=== PATIENT | male | born 1935 | race Caucasian/White ===

== ENCOUNTER 2020-03-30 13:57 | Outpatient (RCR) | payer MEDICARE, OTHER, SELFPAY ==
--- NOTE | 2020-04-05 13:21 | XR_ITS ---
EXAMINATION: XR CALCANEUS, RIGHT CLINICAL INFORMATION: Nonhealing ulcer. Evaluate for osteomyelitis. COMPARISON: Bone scan January 2020 TECHNIQUE: Lateral and axial views of the right calcaneus were obtained. FINDINGS: There is bone loss and periosteal reaction of the posterior inferior calcaneus suggestive of osteomyelitis. There is an ulcer of the overlying soft tissues. There are degenerative changes of the hindfoot. There is soft tissue arterial calcification. IMPRESSION: Osteomyelitis of the calcaneus.
== END 2020-06-07 13:31 | disposition home or self-care (01) ==
LOC: HO.WCC 13:57
PROVIDERS: PCP Internal Medicine; Visit Provider Surgery
DX: L89.614 Pressure ulcer of right heel, stage 4 (principal); L08.9 Local infection of the skin and subcutaneous tissue, unspecified; I73.9 Peripheral vascular disease, unspecified; M86.9 Osteomyelitis, unspecified; I10 Essential (primary) hypertension; G62.9 Polyneuropathy, unspecified; Z89.512 Acquired absence of left leg below knee; Z87.891 Personal history of nicotine dependence; Z86.718 Personal history of other venous thrombosis and embolism; Z79.01 Long term (current) use of anticoagulants
CPT/HCPCS: 11042; 11043; 11045; 73650; 97602; 99212; 99213; 99214

== ENCOUNTER 2020-04-10 22:55 | Emergency (ER) | payer MEDICARE, OTHER, SELFPAY ==
[2020-04-10 23:11] VITALS: BP 111/53; BP 111/67; PULSE 69; PULSE 70; RESP 16; TEMP 36.8; O2SAT 95; O2SAT 98; BMI 27.3
--- NOTE | 2020-04-10 23:13 | US_ITS ---
EXAMINATION: US VENOUS ULTRASOUND WITH DOPPLER LOWER EXTREMITY, RIGHT CLINICAL INFORMATION: Right leg pain, swelling COMPARISON: 10/01/2016 TECHNIQUE: Ultrasound of the deep veins is performed from the hip to the calf with compression sonography and color and pulse Doppler assessment. Spectral analysis with color-flow imaging is performed. FINDINGS: There is normal venous compression and respiratory variation and augmented flow. The visualized common femoral vein, superficial femoral vein, profunda femoral vein, popliteal vein, and the trifurcation region shows no evidence of deep venous thrombosis. There is no significant popliteal fossa cyst. If the patient's symptoms persist, followup ultrasound in 5 days 7 days might be of value to exclude proximal propagation from a non-visualized calf vein. IMPRESSION: No DVT demonstrated in the right lower extremity.
--- NOTE | 2020-04-10 23:13 | XR_ITS ---
EXAMINATION: XR HIP, RIGHT CLINICAL INFORMATION: Pain in right hip COMPARISON: X-ray of the right hip July 2016 TECHNIQUE: Two views of the right hip. FINDINGS: A right total hip arthroplasty is noted with the components in usual position and unchanged compared to prior. There is no periprosthetic fracture or suspicious area of lucency. Arterial calcification is present. Prominent spondylosis of the partially visualized lumbar sacral spine IMPRESSION: Bilateral hip arthroplasties. No acute abnormality
--- NOTE | 2020-04-10 23:16 | ED_ITS ---
HPI - General Adult General Chief complaint: Extremity Injury, Lower Stated complaint: RIGHT LEG PAIN Time Seen by Provider: 04/10/20 23:04 Source: patient Mode of arrival: EMS Limitations: no limitations History of Present Illness HPI narrative: patient comes to emergency room complaining of right lower extremity pain. Patient states he has pain in his hip joint, the back of his knee, back of the thigh. patient states he has an ulcer in heel on the right side, which is been taking care of by the wound clinic. Patient has no current complaints about the ulcer. Related Data Previous Rx's Medication Instructions Recorded tramadol 50 mg PO TID PRN #10 tab 04/11/20 Allergies Allergy/AdvReac Type Severity Reaction Status Date / Time No Known Allergies Allergy Verified 04/10/20 23:17 [No Known Allergies*] Review of Systems Review of Systems: Constitutional : No Weight loss, No Fever, No Chills, No Night Sweats, No Fatigue, No Malaise ENT/Mouth : No Hearing loss, No Ear Pain, No Nasal Congestion, No Sinus Pain, No Hoarseness, No sore throat, No Rhinorrhea, No Swallowing Difficulty Eyes: No Eye Pain, No Swelling, No Redness, No Foreign Body, No Discharge, No Vision Changes Cardiovascular : No Chest Pain, No SOB, No Dyspnea on Exertion, No Orthopnea, No Edema, No Palpitations Respiratory : No Cough, No Sputum, No Wheezing, No Smoke Exposure, No Dyspnea Gastrointestinal : No Nausea, No Vomiting, No Diarrhea, No Constipation, No abdominal Pain, No Hematochezia, No Melena Genitourinary : no irregular bleeding, No Dysuria, No Urinary Frequency, No Hematuria, No Urinary Incontinence, No Urgency, No Flank Pain, No Urinary Flow Changes, No Hesitancy Musculoskeletal : Complaining right lower extremity pain at the hip, back of the thigh, back of the knee Skin : No Skin Lesions, No rash Neuro : No Weakness, No Numbness, No Paresthesias, No Loss of Consciousness, No Dizziness, No Headache Psych : No Anxiety/Panic, No Depression, No SI/HI/AH/VH, No Social Issues, Heme/Lymph: No Bruising, No Bleeding,No Lymphadenopathy Endocrine : No Polyuria, No Polydipsia, No Temperature Intolerance PMFSH Past Medical History Medical History Hypertension Social History Social History Advance Directives: No Advance Directives Information Provided: No Physical Exam Vital Signs: Vital Signs: Vital Signs Temp Pulse Resp BP Pulse Ox 04/11/20 01:05 98.2 F 75 15 105/63 97 04/10/20 23:11 98.3 F 69 16 111/53 L 95 Body Mass Index 27.3 Appearance: Alert. Oriented X3. No acute distress. Eyes: Pupils equal, round and reactive to light. ENT: Pharynx normal. Neck: Normal inspection. Neck supple. No lymph nodes noted. No crepitus CVS: Normal heart rate and rhythm. Pulses normal. Normal S1 and S2 Respiratory: No respiratory distress. Breath sounds normal. No Wheezing. No r ales Abdomen: Soft and nontender. No rigidity. No distention. good BS x4 Skin: see below Extremities: right foot edema, stage II ulcer in the right heel, pain to palpation in the calf, behind the knee, posterior right thigh, mild pain to the right hip with flexion and extension. 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 No motor deficit. No sensory deficit. Moving all extermities. No slurred speech. Medical Decision Making MDM Narrative Medical decision making narrative: I discussed the labs and imaging with the patient. I discussed with the patient that he will likely benefit from physical therapy, which may help him with pain, mobility, and to prevent Muscular contractures Lab Data Result diagrams: 04/11/20 00:05 04/11/20 00:05 Labs: Lab Results 04/11/20 04/11/20 Range/Units 00:05 00:05 WBC 8.3 (4.8-10.8) X10*3/uL RBC 3.06 L (4.60-5.80) X10*6/uL Hgb 8.4 L (14.0-18.0) g/dl Hct 26.7 L (42-52) % MCV 87.3 (80-98) fL MCH 27.5 (27.0-33.0) pg MCHC 31.5 (31.0-36.0) g/dl RDW 14.1 (11.0-16.0) % Plt Count 294 (160-400) X10*3/uL MPV 9.9 (9.4-12.4) fL Immature Gran % (Auto) 0.2 (0.0-0.4) % Neut % (Auto) 63.6 (45-73) % Lymph % (Auto) 22.9 (20-40) % [place] % (Auto) 6.0 (2-11) % Eos % (Auto) 6.8 H (0-4) % Baso % (Auto) 0.5 (0-2) % Lymph # (Auto) 1.9 (1.2-4.9) X10*3/uL [place] # (Auto) 0.5 (0.1-1.2) X10*3/uL Eos # (Auto) 0.6 H (0.0-0.4) X10*3/uL Baso # (Auto) 0.0 (0.0-0.2) X10*3/uL Abs Immat Gran (auto) 0.02 (0.00-0.03) X10*3/uL Absolute Neuts (auto) 5.3 (2.0-8.3) X10*3/uL Absolute Nucleated RBC 0.000 (0.0-0.012) X10*3/uL Nucleated RBC % (auto) 0.0 (0.0-0.2) /100WBC Sodium 141 (135-145) mmol/L Potassium 4.4 (3.3-5.1) mmol/l Chloride 110 H (96-108) mmol/L Carbon Dioxide 25 (22-29) mmol/L Anion Gap 10 L (12-20) BUN 22 H (9-16) mg/dL Creatinine 1.34 (0.5-1.4) mg/dL Estim Creat Clear Calc 37.9 Estimated GFR 51 Random Glucose 95 (60-115) mg/dL Calcium 8.7 (8.4-10.2) mg/dL Magnesium 1.8 (1.6-2.6) mg/dL Imaging Data duplex ultrasound: Radiologist's impression: no DVT demonstrated in the right lower e xtremity hip x-ray: Bilateral hip arthroplasties, no acute abnormality Discharge Plan Discharge Clinical Impression: Leg pain, right Patient Disposition: Home, Self-Care Instructions: Leg Pain (ED) Additional Instructions: please follow-up with your primary care physician, who will likely benefit from physical therapy for your right leg. Please follow-up with your primary care physician tomorrow. If you have any worsening or new symptoms, please return to the emergency room or call 911 Prescriptions: New tramadol 50 mg tablet 50 mg PO TID PRN (Reason: pain) Qty: 10 RF: 0
[2020-04-11 00:15] LABS: MANUAL DIFF FLAG NO
[2020-04-11 00:23] LABS: Basophils Percent Auto 0.5 % (0-2); Eosinophils Absolute Auto 0.6 X10*3/uL (0.0-0.4); Eosinophils Percent Auto 6.8 % (0-4); Hematocrit 26.7 % (42-52); Hemoglobin 8.4 g/dl (14.0-18.0); Imm Gran Abs Auto 0.02 X10*3/uL (0.00-0.03); Imm Gran Pct Auto 0.2 % (0.0-0.4); Lymphocytes Absolute Auto 1.9 X10*3/uL (1.2-4.9); Lymphocytes Percent Auto 22.9 % (20-40); Mean Corpuscular HGB Conc 31.5 g/dl (31.0-36.0); Mean Corpuscular Hemoglobin 27.5 pg (27.0-33.0); Mean Corpuscular Volume 87.3 fL (80-98); Mean Platelet Volume 9.9 fL (9.4-12.4); Monocytes Absolute Auto 0.5 X10*3/uL (0.1-1.2); Neutrophils Absolute Auto 5.3 X10*3/uL (2.0-8.3); Neutrophils Percent Auto 63.6 % (45-73); Platelet Count 294 X10*3/uL (160-400); Red Blood Count 3.06 X10*6/uL (4.60-5.80); Red Cell Distribution Width 14.1 % (11.0-16.0); White Blood Count 8.3 X10*3/uL (4.8-10.8)
[2020-04-11 00:43] LABS: Anion Gap 10 (12-20); Blood Urea Nitrogen 22 mg/dL (9-16); Calcium 8.7 mg/dL (8.4-10.2); Carbon Dioxide 25 mmol/L (22-29); Chloride 110 mmol/L (96-108); Creatinine Clr Calc Pharmacy 37.9; Estimated Glomerular Filt Rate 51; Glucose Random 95 mg/dL (60-115); Magnesium 1.8 mg/dL (1.6-2.6); Potassium 4.4 mmol/l (3.3-5.1); Sodium 141 mmol/L (135-145)
[2020-04-11 01:05] VITALS: BP 105/63; PULSE 75; RESP 15; TEMP 36.8; O2SAT 97
[2020-04-11] MEDS: Acetaminophen 325 MG TABLET 650 MG PO (01:54)
== END 2020-04-11 03:46 | disposition home or self-care (01) ==
PROVIDERS: Emergency Provider Emergency Medicine
DX: M79.661 Pain in right lower leg (principal); M25.551 Pain in right hip; M54.5 Low back pain; Z79.899 Other long term (current) drug therapy
CPT/HCPCS: 36415; 73502; 80048; 83735; 85025; 93971; 99284

== ENCOUNTER → 2020-04-18 15:17 | Outpatient (BNVA) | payer MEDICARE, OTHER, SELFPAY | PROVIDERS: PCP Internal Medicine; Referring Provider Internal Medicine; Visit Provider Surgery | DX: L97.419 Non-pressure chronic ulcer of right heel and midfoot with unspecified severity (principal); I73.9 Peripheral vascular disease, unspecified | CPT/HCPCS: 99212 ==

== ENCOUNTER 2020-04-24 08:07 | Day surgery (SDC) | payer MEDICARE, OTHER, SELFPAY ==
--- NOTE | 2020-04-21 11:01 | HO.ANESPROP2 ---
Documented by User: Valarie Forte 04/21/20 11:08 HPI - Anesthesia Eval Consult details Narrative: 84yo M for Debridement of right fool/heel ulcer PMFSH Past Medical History Medical History (Updated 04/21/20 @ 11:08 by Valarie Forte) Chronic kidney disease GERD (gastroesophageal reflux disease) Hypertension Peripheral vascular disease Polyneuropathy Surgical History Surgical History History of amputation below knee History of appendectomy History of tonsillectomy Hx of bilateral hip replacements Social History Social History Are you a primary women's health care nurse practitioner to a significant other at home: No Do you presently have visiting nurse or other home services: Yes Alcohol intake: never Smoking Status: Never smoker Smoked in Last 30 Days: No Use of substances other than those prescribed or required for medical reasons: No Advance Directives: No Advance Directives Information Provided: No (unknown) Meds Allergies Allergy/AdvReac Type Severity Reaction Status Date / Time No Known Allergies Allergy Verified 04/10/20 23:17 [No Known Allergies*] Home Medications Medication Instructions Recorded Confirmed Type carvedilol 6.25 mg tablet 6.25 mg PO BID 04/18/20 04/18/20 History clopidogrel 75 mg tablet 75 mg PO DAILY 04/18/20 04/18/20 History latanoprost 0.005 % eye drops drp OPHTHALMIC (EYE) DAILY PRN ml 04/18/20 04/18/20 History omeprazole 20 mg capsule,delayed 20 mg PO DAILY 04/18/20 04/18/20 History release potassium chloride 10 mEq 10 meq PO DAILY 04/18/20 04/18/20 History tablet,extended release sulfamethoxazole 800 1 tab PO BID 04/18/20 04/18/20 History mg-trimethoprim 160 mg tablet vitamin B complex 1 tab PO DAILY 04/18/20 04/18/20 History Exam Exam Date and Time: April 21, 2020 1101 Pertinent Lab Results Pertinent Lab Results: Laboratory Tests 04/11/20 04/11/20 00:05 00:05 WBC 8.3 Hgb 8.4 L Hct 26.7 L Plt Count 294 Sodium 141 Potassium 4.4 Chloride 110 H BUN 22 H Creatinine 1.34 Assessment and Plan Assessment Anesthesia Assessment: Chart Reviewed Documented by User: Alistair Mcdaniel 04/24/20 10:53 PMF Past Medical History Medical History (Updated 04/21/20 @ 11:08 by Valarie Forte) Chronic kidney disease GERD (gastroesophageal reflux disease) Hypertension Peripheral vascular disease Polyneuropathy Surgical History Surgical History History of amputation below knee History of appendectomy History of tonsillectomy Hx of bilateral hip replacements Social History Social History Are you a primary women's health care nurse practitioner to a significant other at home: No Do you presently have visiting nurse or other home services: Yes Alcohol intake: never Smoking Status: Never smoker Smoked in Last 30 Days: No Use of substances other than those prescribed or required for medical reasons: No Advance Directives: No Advance Directives Information Provided: No (unknown) Meds Allergies Allergy/AdvReac Type Severity Reaction Status Date / Time No Known Allergies Allergy Verified 04/10/20 23:17 [No Known Allergies*] Home Medications Medication Instructions Recorded Confirmed Type carvedilol 6.25 mg tablet 6.25 mg PO BID 04/18/20 04/18/20 History clopidogrel 75 mg tablet 75 mg PO DAILY 04/18/20 04/18/20 History latanoprost 0.005 % eye drops drp OPHTHALMIC (EYE) DAILY PRN ml 04/18/20 04/18/20 History omeprazole 20 mg capsule,delayed 20 mg PO DAILY 04/18/20 04/18/20 History release potassium chloride 10 mEq 10 meq PO DAILY 04/18/20 04/18/20 History tablet,extended release sulfamethoxazole 800 1 tab PO BID 04/18/20 04/18/20 History mg-trimethoprim 160 mg tablet vitamin B complex 1 tab PO DAILY 04/18/20 04/18/20 History Exam Airway Mallampati Class: III TM Dist: >3cm Neck ROM: Limited Heart: RRR Assessment and Plan Assessment Anesthesia Assessment: Anesthesia Plan Discussed Final Anesthetic Review NPO: Yes (Except meds) ASA Class: III Final Preanesthetic Review: Consent Obtained/Reviewed Anesthetic Plan Anesthetic Plan: MAC:
[2020-04-24] VITALS (7 sets, daily range): BP systolic 99–113; BP diastolic 52–62; PULSE 62–74; RESP 16–18; TEMP 36.6–36.9; O2SAT 98–99; BMI 27.5
--- NOTE | 2020-04-24 09:17 | MHC.SHP ---
Pre-Procedural Eval Section A The patient is an INPATIENT: No Changes since office visit: Yes Patient answered all questions; No Cold of Flu in the past 2 weeks, No New Medical Problems and No Changes in Medication The History & Physical has been completed within 30 days and I have reviewed it.: Yes Section B Chief Complaint: Ulcer of Right Heel Allergies: Allergies Allergy/AdvReac Type Severity Reaction Status Date / Time No Known Allergies Allergy Verified 04/10/20 23:17 [No Known Allergies*] Plan Diagnosis/Plan: Unchanged Patient has been examined and remains a candidate for the planned procedure
[2020-04-24 09:20] LABS: Glucose, Whole Blood 89 mg/dL (60-115)
[2020-04-24] MEDS: ceFAZolin Sodium/Dextrose,Iso 2 GM/50 ML PIGGYBACK IV (09:41)
[2020-04-24] MEDS: Lactated Ringers 1,000 ML 100 ML IVCONT (09:43)
--- NOTE | 2020-04-24 10:49 | PM.OP ---
Brief Operative Note Date of procedure: 04/24/20 Pre-op diagnosis: Right foot ulcer, heal Post-op diagnosis: same Procedure: Debridement of skin, subcutaneous tissue and bone, right foot Implants: none Surgeon: Kevin Alcaraz MD Anesthesia: MAC Estimated blood loss (mL): 10 Pathology: other (right foot ulcer) Condition: stable Disposition: PACU
--- NOTE | 2020-04-24 11:33 | W.PM.OPN ---
Operative Note Operative Note Narrative: Date of procedure: 04/24/20 Pre-op diagnosis: Right foot ulcer, heal Post-op diagnosis: same Procedure: Debridement of skin, subcutaneous tissue and bone, right foot Indications for procedure: Patient is an 84-year-old male presenting with the nonhealing ulcer of the right heel [facility] He presents today for debridement of this heel ulcer which has areas necrotic skin and bone. Operative findings: Patient was found to have an area of necrotic skin and subcutaneous tissue involving approximately 2 x 2 cm. In addition have segment of bone from the right heel was excised. Exposed bone at the base of the wound was debrided using a curette down to healthy viable tissue. Procedure details: Patient was brought to the OR placed in a supine position. After administering light sedation the patient was placed in a partial lateral position with the right heel elevated. The skin was prepped with Betadine and draped in a sterile fashion. A surgical time-out was called and the consent confirmed. Patient received preoperative antibiotics. Local anesthesia consisting a combination of 1% lidocaine with 0.75 % Sensorcaine with epinephrine was infiltrated around the ulcer. Scalp was then used to debride the nonviable tissue including approximately 2 x 2 cm segment of skin at the inferior portion of the wound. Viable bleeding tissue was identified at the margins. A segment of tendon with fractured bone measuring approximately 1 x 1 cm was excised as well and sent as a specimen as well. Hemostasis was assured using electrocautery. The wounds were irrigated thoroughly with saline solution. Wound was then dressed with Surgicel to maintain hemostasis followed by a non adherent dressing, fluffed gauze, and Kerlix. The patient tolerated the procedure well. Sponge, instrument, and needle counts reported as correct. The patient was transferred to PACU in stable condition. Implants: none Surgeon: Kevin Alcaraz MD Anesthesia: MAC Estimated blood loss (mL): 10 Pathology: other (right foot ulcer) Condition: stable Disposition: PACU
[2020-04-24] MEDS: oxyCODONE HCl Immed Release 5 MG TABLET PO (12:14)
[2020-04-24] MEDS: Acetaminophen 325 MG TABLET 650 MG PO (12:14)
--- NOTE | 2020-04-24 14:00 | HO.POSTANES ---
Post Anesthesia Evaluation Post Anesthesia Evaluation Vital Signs: Vital Signs Temp Pulse Resp BP Pulse Ox 04/24/20 12:48 97.9 F 65 16 100/61 98 04/24/20 12:33 65 16 112/62 98 04/24/20 12:18 62 18 112/52 L 98 04/24/20 12:03 66 18 113/55 L 98 04/24/20 11:48 74 16 109/59 L 99 04/24/20 11:33 97.9 F 70 18 99/55 L 99 04/24/20 09:00 98.5 F 66 98 Anesthesia: Monitored Mental Status: Awake Pain Control: Satisfactory Nausea/Vomiting: None Hydration: Adequate Anesthesia-Related Issues: No Anes. Related Issues
== END 2020-04-24 23:59 | disposition home or self-care (01) ==
PROVIDERS: PCP Internal Medicine; Visit Provider Surgery
PROC: (CPT 11044; principal; 2020-04-24 10:00)
DX: I96 Gangrene, not elsewhere classified (principal); L97.414 Non-pressure chronic ulcer of right heel and midfoot with necrosis of bone; I12.9 Hypertensive chronic kidney disease with stage 1 through stage 4 chronic kidney disease, or unspecified chronic kidney disease; N18.9 Chronic kidney disease, unspecified; G62.9 Polyneuropathy, unspecified; I49.9 Cardiac arrhythmia, unspecified; K21.9 Gastro-esophageal reflux disease without esophagitis; Z89.519 Acquired absence of unspecified leg below knee; Z96.643 Presence of artificial hip joint, bilateral; Z79.899 Other long term (current) drug therapy; Z87.891 Personal history of nicotine dependence
CPT/HCPCS: 11044; 82947; 88304; 88305; J0690; J2250; J3010

== ENCOUNTER → 2020-05-02 10:23 | Outpatient (BNVA) | payer MEDICARE, OTHER, SELFPAY | PROVIDERS: PCP Internal Medicine; Referring Provider Internal Medicine; Visit Provider Surgery | DX: L97.419 Non-pressure chronic ulcer of right heel and midfoot with unspecified severity (principal) | CPT/HCPCS: 99212 ==

== ENCOUNTER → 2020-05-16 15:00 | Outpatient (BNVA) | payer MEDICARE, OTHER, SELFPAY | PROVIDERS: PCP Internal Medicine; Visit Provider Surgery Vascular Surgery | DX: L97.419 Non-pressure chronic ulcer of right heel and midfoot with unspecified severity (principal); Z89.512 Acquired absence of left leg below knee | CPT/HCPCS: 99212 ==

== ENCOUNTER 2020-07-06 12:39 | Outpatient (REF) | payer MEDICARE, OTHER, SELFPAY ==
--- NOTE | 2020-07-06 15:00 | MHC.AU.P13 ---
Adult Audiological Evaluation Date of Visit: 07/06/20 Reason for Appointment: Audiological evaluation to monitor the status of Mr. Boogie's hearing loss. He has a long-standing history of bilateral sensorineural hearing loss and hearing aid use. He notes that his hearing seems to be gradually worsening. Previous Hearing Test Results: [facility] [place], 06/11/2019- Normal hearing 250-500 Hz, sloping to a mild to severe sensorineural hearing loss bilaterally. 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 He reports that he injured his legs in a fall, and the left leg was amputated in December 2019, and the right leg was amputated in late January/early February 2020. He notes he is being fit with a prosthesis for the left leg soon. Hearing Instrument History- Right Ear: Forensic Toxicologist: [employer] Model: [employer] Q70-M13 Serial Number: [id number] Battery Size: 13 Warranty: Dispensed By: [facility] Date of Fittin Hearing Instrument History- Left Ear: Forensic Toxicologist: [employer] Model: [employer] Q70-M13 Serial Number: [id number] Battery Size: 13 Warranty: Dispensed By: [facility] Date of Fittin Otoscopy: Right Ear: Completely occluded w/ cerumen. Unable to remove, patient on blood thinners Left Ear: Completely occluded w/ cerumen. Unable to remove, patient on blood thinners Tympanometry: Right Ear: Normal Middle Ear System (Type A) Left Ear: Normal Middle Ear System (Type A) Hearing Evaluation: Transducer(s) Used: Circumaural Headphones, Bone Conduction Method: Conventional Audiometry Stimuli Used: Pure Tones Right Ear: Description of Hearing: Normal hearing from 250-500 Hz, sloping to a mild to profound sensorineural hearing loss from 750-8000 Hz. Left Ear: Description of Hearing: Normal hearing from 250-500 Hz, sloping to a mild to profound sensorineural hearing loss from 750-8000 Hz. Speech Recognition Threshold (SRT): Method Used: Monitored Live Voice Stimuli Used: Spondee Words Right Ear: 30 dBHL Left Ear: 30 dBHL Word Discrimination: Method: Monitored Live Voice Word Lists Used: NU-6 Right Ear: 84% at 75 dBHL Left Ear: 96% at 75 dBHL Comparison: Compared to most recent evaluation: Decrease in high-frequency thresholds, which may be related to the use of supra-aural headphones (due to cerumen build-up) vs insert headphones used at last visit. All other thresholds are stable. Recommendations: Recommendations: Audiological re-evaluation in one year.Follow-up with physician for cerumen removal. Recommendations (Other): Highly recommend that Mr. Boogie follow-up with either his PCP or ENT for removal of cerumen. The amount of cerumen currently in his ears is likely to block hearing aids and decrease his hearing. Diagnosis: Primary Diagnosis: H90.3 Bilateral Sensorineural Hearing Loss Secondary Diagnosis: H61.23 Impacted Cerumen, Bilateral Services Performed: Services Performed: Comprehensive Audiological Evaluation (CPT 23621) Tympanometry (CPT 08923) Signature: Provider: George Cui, CCC-A
--- NOTE | 2020-07-07 09:46 | MHC.AU.P13 ---
Addendum entered and electronically signed by George Macdonald, CCC-A 07/07/20 09:49: Incorrect date entered in error. Rewrote with correct date Original Note: Adult Audiological Evaluation Date of Visit: 07/06/20 Reason for Appointment: Audiological evaluation to monitor the status of Mr. Boogie's hearing loss. He has a long-standing history of bilateral sensorineural hearing loss and hearing aid use. He notes that his hearing seems to be gradually worsening. Previous Hearing Test Results: [facility] [place], 06/11/2019- Normal hearing 250-500 Hz, sloping to a mild to severe sensorineural hearing loss bilaterally. 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 He reports that he injured his legs in a fall, and the left leg was amputated in December 2019, and the right leg was amputated in late January/early February 2020. He notes he is being fit with a prosthesis for the left leg soon. Hearing Instrument History- Right Ear: Casino Cage Manager: [employer] Model: [employer] Q70-M13 Serial Number: [id number] Battery Size: 13 Warranty: Dispensed By: [facility] Date of Fittin Hearing Instrument History- Left Ear: Casino Cage Manager: [employer] Model: [employer] Q70-M13 Serial Number: [id number] Battery Size: 13 Warranty: Dispensed By: [facility] Date of Fittin Otoscopy: Right Ear: Completely occluded w/ cerumen. Unable to remove, patient on blood thinners Left Ear: Completely occluded w/ cerumen. Unable to remove, patient on blood thinners Tympanometry: Right Ear: Normal Middle Ear System (Type A) Left Ear: Normal Middle Ear System (Type A) Hearing Evaluation: Transducer(s) Used: Circumaural Headphones, Bone Conduction Method: Conventional Audiometry Stimuli Used: Pure Tones Right Ear: Description of Hearing: Normal hearing from 250-500 Hz, sloping to a mild to profound sensorineural hearing loss from 750-8000 Hz. Left Ear: Description of Hearing: Normal hearing from 250-500 Hz, sloping to a mild to profound sensorineural hearing loss from 750-8000 Hz. Speech Recognition Threshold (SRT): Method Used: Monitored Live Voice Stimuli Used: Spondee Words Right Ear: 30 dBHL Left Ear: 30 dBHL Word Discrimination: Method: Monitored Live Voice Word Lists Used: NU-6 Right Ear: 84% at 75 dBHL Left Ear: 96% at 75 dBHL Comparison: Compared to most recent evaluation: Decrease in high-frequency thresholds, which may be related to the use of supra-aural headphones (due to cerumen build-up) vs insert headphones used at last visit. All other thresholds are stable. Recommendations: Recommendations: Audiological re-evaluation in one year.Follow-up with physician for cerumen removal. Recommendations (Other): Highly recommend that Mr. Boogie follow-up with either his PCP or ENT for removal of cerumen. The amount of cerumen currently in his ears is likely to block hearing aids and decrease his hearing. Diagnosis: Primary Diagnosis: H90.3 Bilateral Sensorineural Hearing Loss Secondary Diagnosis: H61.23 Impacted Cerumen, Bilateral Services Performed: Services Performed: Comprehensive Audiological Evaluation (CPT 49199) Tympanometry (CPT 67949) Signature: Provider: George Cui, CCC-A
== END 2020-07-06 12:40 | disposition home or self-care (01) ==
LOC: HO.SH 12:39
PROVIDERS: Visit Provider Nurse Practitioner
DX: H90.3 Sensorineural hearing loss, bilateral (principal); H61.23 Impacted cerumen, bilateral
CPT/HCPCS: 92557; 92567

== ENCOUNTER 2020-12-08 11:32 | Outpatient (RCR) | payer MEDICARE, OTHER, SELFPAY | END 2021-01-03 12:58 | disposition home or self-care (01) | LOC: HO.WCC 11:32 | PROVIDERS: Visit Provider Physician Assistant | DX: L97.812 Non-pressure chronic ulcer of other part of right lower leg with fat layer exposed (principal); Z89.512 Acquired absence of left leg below knee; Z89.511 Acquired absence of right leg below knee; Z87.891 Personal history of nicotine dependence | CPT/HCPCS: 99212 ==

== ENCOUNTER 2021-08-06 13:27 | Outpatient (REF) | payer MEDICARE, OTHER, SELFPAY ==
--- NOTE | 2021-08-24 09:54 | MHC.AU.AHA ---
Adult Audiological Evaluation Date of Visit: 08/10/21 Reason for Appointment: Long-standing history of hearing loss. Patient arrives today to determine if there has been a change in hearing. Previous Hearing Test Results: At this clinic on 07/06/2020- Normal sloping to profound sensorineural hearing loss bilaterally Ear History: Recent Ear Drainage: None Reported Recent Ear Pain: None Reported Recent Ear Infections: None Reported History of Ear Wax Buildup: Both Ears Medical History: Medical History: High Blood Pressure Medical History: Amputation of left leg in December 2019, Amputation of right leg in late January/early February 2020. He has been fit with prostheses and uses a wheelchair. Hearing Instrument History- Right Ear: Political Consultant: [employer] Model: Prim’Vision Q70-M13 Serial Number: [id number] Battery Size: 13 Dispensed By: [facility] Date of Fittin Hearing Instrument History- Left Ear: Political Consultant: Phonak Model: Prim’Vision Q70-M13 Serial Number: [id number] Battery Size: 13 Dispensed By: [facility] Date of Fittin Otoscopy: Right Ear: Partially occluded w/cerumen- cerumen removal performed before testing Left Ear: Partially occluded w/cerumen- cerumen removal performed before testing Tympanometry: Tympanometry performed due to: Right Ear: Normal Middle Ear System (Type A) Left Ear: Normal Middle Ear System (Type A) Hearing Evaluation: Transducer(s) Used: Insert Earphones Method: Conventional Audiometry Stimuli Used: Pure Tones Right Ear: Description of Hearing: Normal sloping to profound sensorineural hearing loss Left Ear: Description of Hearing: Normal sloping to profound sensorineural hearing loss Speech Recognition Threshold (SRT): Method Used: Recorded Lists Stimuli Used: Spondee Words Right Ear: 45 dBHL Left Ear: 45 dBHL Word Discrimination: Method: Recorded Lists Word Lists Used: W-22 Right Ear: 80% at 80 dBHL Left Ear: 84% at 80 dBHL Most Comfortable Level (MCL): Right Ear: 80 dBHL Left Ear: 80 dBHL Comparison: Compared to the most recent evaluation: Thresholds have decreased bilaterally. Recommendations: Audiological re-evaluation in one year. Hearing aid maintenance performed today. Hearing aid(s) reprogrammed with updated test results. Diagnosis: Primary Diagnosis: H90.3 Bilateral Sensorineural Hearing Loss Signature: Provider: George Jackson, CCC-A
== END 2021-08-06 13:28 | disposition home or self-care (01) ==
LOC: HO.SH 13:27
PROVIDERS: Visit Provider Internal Medicine
DX: Z01.118 Encounter for examination of ears and hearing with other abnormal findings (principal); H90.3 Sensorineural hearing loss, bilateral
CPT/HCPCS: 92557; 92567

== ENCOUNTER 2021-10-31 18:11 | Inpatient (IN) | payer MEDICARE, OTHER, SELFPAY ==
--- NOTE | ~2021-10-31 | XR_ITS ---
EXAMINATION: XR CHEST CLINICAL INFORMATION: Fever. COMPARISON: None TECHNIQUE: Frontal view of the chest was obtained. FINDINGS: Low lung volumes limit evaluation. There is mild elevation of the right hemidiaphragm. Mild bibasilar linear markings are seen. The upper lung beck are clear. An azygos fissure is noted. The heart and mediastinal structures are unremarkable. XR/XR chest 1V IMPRESSION: Mild bibasilar linear atelectasis versus scarring. No acute cardiopulmonary process.
--- NOTE | ~2021-10-31 | CT_ITS ---
EXAMINATION: CT ABDOMEN AND PELVIS WITHOUT CONTRAST CLINICAL INFORMATION: Left-sided pain and tenderness COMPARISON: None TECHNIQUE: Multidetector volumetric imaging was performed from the superior aspect of the liver through the pubic symphysis. Sagittal and coronal reformatted images were obtained on the technologist's workstation. This CT examination was performed using dose optimization techniques as appropriate, variously including the following: *Automated exposure control *Adjustment of mA and/or kV according to patient size (this includes techniques or standardized protocols for targeted exams where dose is matched to indication/reason for exam; i.e. extremities or head) *Use of iterative reconstruction technique DLP: 738 mGy-cm FINDINGS: LUNG BASES: Left basilar nodule. Measures 9 mm. Coronary calcifications are seen. LIVER, GALLBLADDER, AND BILIARY TREE: Some mild intrahepatic ductal dilatation. Common duct prominent at 1.2 cm.. The gallbladder is unremarkable with no evidence of radiopaque gallstones, gallbladder wall thickening, or obvious pericholecystic inflammatory changes. PANCREAS: Unremarkable. SPLEEN: Unremarkable. ADRENAL GLANDS: Unremarkable. KIDNEYS AND URETERS: The kidneys are mildly hydronephrotic bilaterally. Ureters are prominent into the bladder. No obvious stone. Evaluation of the pelvis is limited from the patient's hip artifact. BLADDER: Limited evaluation. Mildly thick-walled. GASTROINTESTINAL TRACT: The bowel pattern is felt to be nonobstructing. There is moderate stool rectosigmoid. ABDOMINAL WALL: No significant hernia is appreciated. LYMPH NODES: Normal. VASCULAR: Atherosclerotic change. No aneurysmal change PELVIC VISCERA: Unremarkable. OSSEOUS STRUCTURES: Degenerative changes. Some scattered areas of bony lucency may be degenerative in nature and represent Schmorl's nodes. CT/CT abdomen pelvis wo con IMPRESSION: There is bilateral hydronephrosis and the ureters are prominent to the level of the bladder insertion. No obvious stone is seen bilaterally. Bladder wall is thickened and this may be due to cystitis or hypertrophy. Moderate rectosigmoid stool. The bowel pattern is overall nonobstructing. Mild intrahepatic ductal dilatation and common ductal prominence through the pancreas. No obvious pancreatic lesion. Still lesion at the level the ampulla cannot be excluded. If further evaluation is warranted consider MR/MRCP. 9 mm left lower lobe nodule. Recommend full CT of the chest for full evaluation. This may be done on an outpatient basis. Fleischner guidelines were followed.
--- NOTE | ~2021-10-31 | MR_ITS ---
EXAMINATION: MR ABDOMEN WITHOUT CONTRAST CLINICAL INFORMATION: Abnormal CT of the bile ducts. Elevated liver function tests. COMPARISON: Previous CT of the abdomen and pelvis October 2021 TECHNIQUE: MR abdomen is performed without gadolinium contrast. MRCP sequences were performed. FINDINGS: LUNG BASES: There is a tiny right pleural effusion. The lung bases are otherwise unremarkable. LIVER, GALLBLADDER, AND BILIARY TREE: The liver is normal in size, smooth in contour, and normal in signal. The gallbladder is upper normal in size. No gallstones are seen. There is gallbladder wall thickening and edema and small amount of pericholecystic fluid. Appearance is concerning for cholecystitis. There is mild intra and extrahepatic biliary duct dilatation. The common bile duct measures 1 cm. No common bile duct stone is seen. PANCREAS: Unremarkable. SPLEEN: Unremarkable. ADRENAL GLANDS: Unremarkable. KIDNEYS AND URETERS: The kidneys are normal in size and shape. No hydronephrosis. No perinephric stranding. There is a Richter catheter in the bladder. Mild bilateral hydronephrosis and ureteral dilatation is improved from 10/31/2021 CT scan. GASTROINTESTINAL TRACT: There is diverticulosis of the colon. No bowel obstruction. No ascites or fluid collection. ABDOMINAL WALL: No significant hernia is appreciated. LYMPH NODES: No lymphadenopathy. VASCULAR: There is evidence of atherosclerotic disease. No aneurysm is seen. OSSEOUS STRUCTURES: There are degenerative changes of the spine. MR/MR MRCP IMPRESSION: Upper normal-size gallbladder. Gallbladder wall thickening, edema and small amount of pericholecystic fluid. Appearance is concerning for cholecystitis. No gallstones seen. Mild intrahepatic and extrahepatic biliary duct dilatation. The common bile duct measures 1 cm. No common bile duct stone seen. Trace right pleural effusion and small amount of ascites adjacent to the liver. Findings will be communicated by the [employer] work flow police matron.
[2021-10-31 18:23] VITALS: BP 136/63; BP 138/62; PULSE 53; PULSE 58; RESP 18; TEMP 36.7; O2SAT 99; BMI 28.1
--- NOTE | 2021-10-31 18:37 | ED.BACK ---
HPI - Back Pain/Injury General Chief Complaint: Back Pain/Injury Stated Complaint: back pain Time Seen by Provider: 10/31/21 18:37 Source: patient, EMS and old records reviewed Mode of arrival: EMS Limitations: no limitations History of Present Illness HPI Narrative: 85 y/o male with history of PVD, s/p bilateral BKA's, GERD, ?mild dementia (on aricept), who presents to the ER via EMS with complaints of nontraumatic left lower back pain that started yesterday. He reports the pain is in his middle to lower left side of his back, 8/10 and sharp in nature. It is worse with movement and palpation, it is constant and came on gradually. He denies any urinary symptoms, nausea, vomiting or fevers. He denies history of prior back pain. Denies history of kidney stone. He has not taken any medications for the pain. MD elicited complaint: back pain Onset (ago): day(s) (1) Timing: progressively worsening Severity: severe Pain scale (0-10): 8 Similar Symptoms Previously: No Quality: stabbing Location: left flank Radiation: none Exacerbating factors: movement Relieving factors: immobilization Context: unknown Associated symptoms: denies other symptoms Work related injury: No Related Data Home Medications Medication Instructions Recorded Confirmed carvedilol 6.25 mg tablet 6.25 mg PO BID 04/18/20 05/02/20 clopidogrel 75 mg tablet 75 mg PO DAILY 04/18/20 05/02/20 latanoprost 0.005 % eye drops drp OPHTHALMIC (EYE) DAILY PRN ml 04/18/20 05/02/20 omeprazole 20 mg capsule,delayed 20 mg PO DAILY 04/18/20 05/02/20 release potassium chloride 10 mEq 10 meq PO DAILY 04/18/20 05/02/20 tablet,extended release sulfamethoxazole 800 1 tab PO BID 04/18/20 05/02/20 mg-trimethoprim 160 mg tablet vitamin B complex (B 1 tab PO DAILY 04/18/20 05/02/20 Complex-Vitamin B12) Previous Rx's Medication Instructions Recorded tramadol 50 mg tablet 50 mg PO TID PRN #10 tab 04/11/20 oxycodone 5 mg tablet 5 mg PO Q6H PRN #10 tab 04/24/20 Allergies Allergy/AdvReac Type Severity Reaction Status Date / Time No Known Allergies Allergy Verified 10/31/21 18:28 [No Known Allergies*] Review of Systems Review of Systems: Constitutional: No Fever, No Chills ENT/Mouth: No sore throat, No Rhinorrhea, No Swallowing Difficulty Cardiovascular: No Chest Pain, No SOB Respiratory: No Cough, No Sputum Gastrointestinal: No Nausea, No Vomiting, No Diarrhea, No abdominal Pain, No Hematochezia, No Melena Genitourinary: No Dysuria, No Urinary Frequency, No Hematuria Musculoskeletal: No joint pain, + Myalgias, +Back pain Skin: No Skin Lesions, No rash Neuro: No Weakness, No Numbness, No Dizziness, No Headache Psych: No Anxiety/Panic, No Depression Heme/Lymph: No Bruising, No Lymphadenopathy Endocrine: No Polyuria, No Polydipsia PMFSH Past Medical History Medical History Chronic kidney disease GERD (gastroesophageal reflux disease) Hypertension Peripheral vascular disease Polyneuropathy Surgical History History of amputation below knee History of appendectomy History of tonsillectomy Hx of bilateral hip replacements Social History Social History Are you a primary child care attendant school to a significant other at home: No Do you presently have visiting nurse or other home services: Yes Alcohol intake: never Advance Directives: No Advance Directives Information Provided: No Physical Exam Vital Signs: Vital Signs: Last Vital Signs Temp 100.6 F H 10/31/21 23:02 Pulse 80 10/31/21 23:02 Resp 18 10/31/21 23:02 BP 101/42 L 10/31/21 23:02 Pulse Ox 94 10/31/21 23:35 BMI result Body Mass Index 28.1 Appearance: Alert. Oriented X3. No acute distress. Eyes: Pupils equal, round and reactive to light. ENT: Pharynx normal. Neck: Normal inspection. Neck supple. CVS: Normal heart rate and rhythm. Pulses normal. Respiratory: No respiratory distress. Breath sounds normal. Abdomen: Soft and nontender. +BS x4 Back: normal inspection, tenderness in the left flank and left upper lumbar area, no midline tenderness. +CVA tenderness on the left. Skin: Skin warm and dry. Normal skin color. Normal skin turgor. No rashes. Extremities: s/p bilateral BKA, no peripheral edema Neuro: Oriented X 3. No motor deficit. No sensory deficit. Nonfocal, answers questions appropriately. Course Course Course Narrative: 85-year-old male with history of peripheral vascular disease status post bilateral BKA, HTN who presents to the ER with left middle and lower back pain that started yesterday. Denies history of the same. Denies urinary symptoms. +CVA tenderness on the left. Reports pain is 10/10. Will check labs and CT scan given age and concern for possible renal etiology. Reevaluation(s) Reevaluation #1: 21:45 - No pain relief with oxycodone and lidoderm. Labs show no lekocytosis. Lactic acid 2.5. Mild UGO with SCr 1.84. Will gently hydrate and give low dose Fentanyl for ongoing pain. CT scan still pending. Patient noted to be shaking with rigors - temp is 102.8. Concern for infection - most likely urinary source given his left flank pain. Will check lactic, and panculture. Reevaluation #2: 22:00 - CT scan showing bilateral hydronephrosis, without visible stone. bladder wall inflammation. Richter placed with cloudy urine returned. Sent for analysis is and grossly positive. IV rocephin ordered. Patient confused now, trying to eat the oxygen saturation probe. Most likely due to infection. Will plan for admission. Dr. David TT for admit. MDM - Back Pain/Injury Lab Data Result diagrams: 10/31/21 19:01 10/31/21 19:02 Labs: Lab Results 10/31/21 10/31/21 10/31/21 Range/Units 19:01 19:02 21:59 WBC 7.3 (4.8-10.8) X10*3/uL RBC 3.69 L (4.60-5.80) X10*6/uL Hgb 10.6 L (14.0-18.0) g/dl Hct 33.0 L (42.0-52.0) % MCV 89.4 (80.0-98.0) fL MCH 28.7 (27.0-33.0) pg MCHC 32.1 (31.0-36.0) g/dl RDW 14.1 (11.0-16.0) % Plt Count 231 (160-400) X10*3/uL MPV 10.6 (9.4-12.4) fL Immature Gran % (Auto) 0.3 (0.0-0.4) % Neut % (Auto) 81.8 H (45-73) % Lymph % (Auto) 10.1 L (20-40) % Island % (Auto) 5.2 (2-11) % Eos % (Auto) 2.3 (0-4) % Baso % (Auto) 0.3 (0-2) % Lymph # (Auto) 0.7 L (1.2-4.9) X10*3/uL Island # (Auto) 0.4 (0.1-1.2) X10*3/uL Eos # (Auto) 0.2 (0.0-0.4) X10*3/uL Baso # (Auto) 0.0 (0.0-0.2) X10*3/uL Abs Immat Gran (auto) 0.02 (0.00-0.03) X10*3/uL Absolute Neuts (auto) 6.0 (2.0-8.3) x10*3/uL Absolute Nucleated RBC 0.000 (0.0-0.012) X10*3/uL Nucleated RBC % (auto) 0.0 (0.0-0.2) /100WBC Sodium 142 (135-145) mmol/L Potassium 4.5 (3.3-5.1) mmol/L Chloride 112 H (96-108) mmol/L Carbon Dioxide 23 (22-29) mmol/L Anion Gap 12 (12-20) BUN 27 H (9-16) mg/dL Creatinine 1.84 H (0.5-1.4) mg/dL Estim Creat Clear Calc 29.4 Estimated GFR 35 Random Glucose 201 H D (60-115) mg/dL Lactic Acid 2.5 H* (0.5-2.0) mmol/L Calcium 9.1 (8.4-10.2) mg/dL Urine Color Urine Appearance Urine pH (5.0-8.0) Ur Specific [place] (1.005-1.025) Urine Protein (NEG-TRACE) MG/DL Urine Glucose (UA) (NEG) MG/DL Urine Ketones (NEG) MG/DL Urine Blood (NEG) Urine Nitrite (NEG) Ur Leukocyte Esterase (NEG) Urine RBC (0) /HPF Urine WBC (0-4) /HPF Ur Squamous Epith Cells /LPF Ur Renal Epithelial Cell /LPF Urine Bacteria /LPF COVID-19 (RA) (Negative) COVID-19 Clin Com Influenza Type A (ROXIE) (Negative) Influenza Type B (ROXIE) (Negative) Influenza A & B Note 10/31/21 10/31/21 10/31/21 Range/Units 21:59 21:59 22:43 WBC (4.8-10.8) X10*3/uL RBC (4.60-5.80) X10*6/uL Hgb (14.0-18.0) g/dl Hct (42.0-52.0) % MCV (80.0-98.0) fL MCH (27.0-33.0) pg MCHC (31.0-36.0) g/dl RDW (11.0-16.0) % Plt Count (160-400) X10*3/uL MPV (9.4-12.4) fL Immature Gran % (Auto) (0.0-0.4) % Neut % (Auto) (45-73) % Lymph % (Auto) (20-40) % Island % (Auto) (2-11) % Eos % (Auto) (0-4) % Baso % (Auto) (0-2) % Lymph # (Auto) (1.2-4.9) X10*3/uL Island # (Auto) (0.1-1.2) X10*3/uL Eos # (Auto) (0.0-0.4) X10*3/uL Baso # (Auto) (0.0-0.2) X10*3/uL Abs Immat Gran (auto) (0.00-0.03) X10*3/uL Absolute Neuts (auto) (2.0-8.3) x10*3/uL Absolute Nucleated RBC (0.0-0.012) X10*3/uL Nucleated RBC % (auto) (0.0-0.2) /100WBC Sodium (135-145) mmol/L Potassium (3.3-5.1) mmol/L Chloride (96-108) mmol/L Carbon Dioxide (22-29) mmol/L Anion Gap (12-20) BUN (9-16) mg/dL Creatinine (0.5-1.4) mg/dL Estim Creat Clear Calc Estimated GFR Random Glucose (60-115) mg/dL Lactic Acid (0.5-2.0) mmol/L Calcium (8.4-10.2) mg/dL Urine Color YELLOW Urine Appearance CLOUDY Urine pH 6.0 (5.0-8.0) Ur Specific [place] 1.010 (1.005-1.025) Urine Protein TRACE (NEG-TRACE) MG/DL Urine Glucose (UA) NEG (NEG) MG/DL Urine Ketones NEG (NEG) MG/DL Urine Blood 1+ H (NEG) Urine Nitrite NEG (NEG) Ur Leukocyte Esterase 3+ H (NEG) Urine RBC 0-2 (0) /HPF Urine WBC TNTC H (0-4) /HPF Ur Squamous Epith Cells NONE /LPF Ur Renal Epithelial Cell TRACE /LPF Urine Bacteria 2+ /LPF COVID-19 (RA) Negative (Negative) COVID-19 Clin Com See Note Influenza Type A (ROXIE) Negative (Negative) Influenza Type B (ROXIE) Negative (Negative) Influenza A & B Note See Note Critical Care Time Critical Care Time Critical Care Time: Yes Total Critical Care Time: 35 Attestation: I have personally provided critical care time exclusive of time spent on separately billable procedures. Time includes review of lab data, radiology results, frequent bedside reassessments, and monitoring for potential decompensation. Intervention performed as documented. Discharge Plan Discharge Clinical Impression: Acute UTI, Bilateral hydronephrosis, UGO (acute kidney injury), Acute metabolic encephalopathy Patient Disposition: Admitted As Inpatient
[2021-10-31 19:06] LABS: MANUAL DIFF FLAG NO
--- NOTE | 2021-10-31 19:15 | PC.NURSE ---
Addendum entered by Yazmin Dwyer 11/01/21 07:10: report given to BRIAN Hatfield Original Note: report received from BRIAN Kelly. pt is alert and oriented. resting in bed. breathing equally unlabored. denies any chest pain or sob
[2021-10-31 19:16] LABS: Basophils Percent Auto 0.3 % (0-2); Eosinophils Absolute Auto 0.2 X10*3/uL (0.0-0.4); Eosinophils Percent Auto 2.3 % (0-4); Hemoglobin 10.6 g/dl (14.0-18.0); Imm Gran Abs Auto 0.02 X10*3/uL (0.00-0.03); Imm Gran Pct Auto 0.3 % (0.0-0.4); Lymphocytes Absolute Auto 0.7 X10*3/uL (1.2-4.9); Lymphocytes Percent Auto 10.1 % (20-40); Mean Corpuscular HGB Conc 32.1 g/dl (31.0-36.0); Mean Corpuscular Hemoglobin 28.7 pg (27.0-33.0); Mean Corpuscular Volume 89.4 fL (80.0-98.0); Mean Platelet Volume 10.6 fL (9.4-12.4); Monocytes Absolute Auto 0.4 X10*3/uL (0.1-1.2); Monocytes Percent Auto 5.2 % (2-11); Neutrophils Percent Auto 81.8 % (45-73); Platelet Count 231 X10*3/uL (160-400); Red Blood Count 3.69 X10*6/uL (4.60-5.80); Red Cell Distribution Width 14.1 % (11.0-16.0); White Blood Count 7.3 X10*3/uL (4.8-10.8)
[2021-10-31] MEDS: Lidocaine 4 % Patch ADH..PATCH 1 PATCH TRANSDERMA (19:19)
[2021-10-31] MEDS: oxyCODONE HCl Immed Release 5 MG TABLET PO (19:19)
[2021-10-31 19:24] LABS: Anion Gap 12 (12-20); Blood Urea Nitrogen 27 mg/dL (9-16); Calcium 9.1 mg/dL (8.4-10.2); Carbon Dioxide 23 mmol/L (22-29); Chloride 112 mmol/L (96-108); Creatinine Clr Calc Pharmacy 29.4; Estimated Glomerular Filt Rate 35; Glucose Random 201 mg/dL (60-115); Potassium 4.5 mmol/L (3.3-5.1); Sodium 142 mmol/L (135-145)
[2021-10-31 20:00] VITALS: BP 126/97; PULSE 78; RESP 16; O2SAT 97
[2021-10-31] MEDS: fentaNYL citrate/PF 100 MCG/2 ML VIAL 50 MCG IVPUSH (20:49)
[2021-10-31] MEDS: 0.9 % Sodium Chloride 1,000 ML 999 ML IVCONT (20:49)
[2021-10-31 21:45] VITALS: BP 154/86; PULSE 96; RESP 20; TEMP 39.3; O2SAT 99
[2021-10-31] MEDS: Acetaminophen 325 MG TABLET 975 MG PO (21:53)
[2021-10-31 22:00] VITALS: RESP 16
[2021-10-31 22:21] LABS: COVID-19 Test Negative (Negative); IDNOW Serial# 16C4AD1C; IDNOW Serial# 9DB6401D; Influenza A Negative (Negative); Influenza B2 Negative (Negative)
[2021-10-31 22:26] LABS: Lactic Acid 2.5 mmol/L (0.5-2.0)
[2021-10-31 22:53] LABS: Appearance Urine CLOUDY; Color Urine YELLOW; Glucose Urine UA NEG (NEG); Leukocyte Esterase Urine 3+ (NEG); Nitrite Urine NEG (NEG); UACC Culture Trigger YES; Urine Blood 1+ (NEG); Urine Ketones NEG (NEG); Urine Protein TRACE MG/DL (NEG-TRACE)
[2021-10-31 23:00] LABS: WBC Urine TNTC /HPF (0-4)
[2021-10-31 23:01] LABS: Bacteria Urine 2+ /LPF; RBC Urine 0-2 /HPF (0); Renal Epithelial Cells Urine TRACE /LPF
[2021-10-31 23:02] VITALS: BP 101/42; PULSE 80; RESP 18; TEMP 38.1
[2021-10-31] MEDS: cefTRIAXone sodium 1 GM in 0.9 % Sodium Chloride 50 ML IV (23:02)
[2021-10-31 23:35] VITALS: O2SAT 94
[2021-11-01] VITALS (8 sets, daily range): BP systolic 93–111; BP diastolic 41–52; PULSE 62–75; RESP 14–20; TEMP 36.5–37.6; O2SAT 95–96
[2021-11-01 00:02] LABS: Reflex Lactate? Lactic Acid Added
--- NOTE | 2021-11-01 00:10 | P.HPHOSP_ITS ---
History of Present Illness Date of Service: 11/01/21 Chief Complaint: Flank pain 85-year-old male with a past medical history of hypertension, peripheral vascular disease status post BKA, polyneuropathy, chronic kidney disease presented to the hospital with a chief complaint of flank pain. Patient mentioned that he has been having flank pain for the past 4-5 days; occasional urinary discomfort; denies any fevers. Denies any abdominal pain. Denies any hematuria. Denies any numbness tingling or focal weakness. Denies any chest pain or palpitations. Review of all other systems is negative except mentioned above ER course: Per ER team patient noted to have abnormal urinalysis consistent with UTI; CT scan showed bilateral hydronephrosis; given ceftriaxone. Admitted to the hospital for further management. 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) Alcohol intake: never Patient Tobacco Use Status: Former Tobacco user service: No Current occupational status: retired [employer] Allergies Allergy/AdvReac Type Severity Reaction Status Date / Time No Known Allergies Allergy Verified 10/31/21 18:28 [No Known Allergies*] Active Medications: Current Medications Pharmacy Consult (Consult Rx Perform Med Rec) 1 each MISCELLANE ONCE PRN PRN Reason: Consult order Home Medications Medication Instructions Recorded Confirmed Last Taken Type clopidogrel 75 mg tablet 75 mg PO DAILY 04/18/20 11/01/21 10/31/21 History latanoprost 0.005 % eye drops 1 drp ophthalmic (eye) BEDTIME 04/18/20 11/01/21 10/31/21 History omeprazole 20 mg capsule,delayed 20 mg PO DAILY 04/18/20 11/01/21 10/31/21 History release acetaminophen 500 mg tablet 500 mg PO BID 11/01/21 11/01/21 10/31/21 History ascorbic acid (vitamin C) 500 mg 500 mg PO BID 11/01/21 11/01/21 10/31/21 History tablet brimonidine 0.2 % eye drops 1 drp ophthalmic (eye) BID 11/01/21 11/01/21 10/31/21 History cyanocobalamin (vitamin B-12) 1 tab PO DAILY 11/01/21 11/01/21 10/31/21 History 1,000 mcg tablet (Vitamin B-12) donepezil 5 mg tablet 1 tab PO QPM 11/01/21 11/01/21 10/31/21 History ferrous sulfate 325 mg (65 mg 1 tab PO QPM 11/01/21 11/01/21 10/31/21 History iron) tablet Physical Exam Vital Signs and Narrative: Vital Signs: Last Vital Signs Temp 99.4 F 11/01/21 00:09 Pulse 75 11/01/21 00:09 Resp 18 11/01/21 00:09 BP 110/44 L 11/01/21 00:09 Pulse Ox 95 11/01/21 00:09 BMI result Body Mass Index 28.1 Gen: Appears be in no acute distress HEENT: NCAT, Moist mucosa. Pulmonary: Vesicular breath sounds, fair air entry CVS: Normal S1-S2 Abdomen: BS+, Soft, tender in the flank; no guarding rigidity Extremities: Warm well perfused Neuro: Alert and awake. Results Labs CBC and Chem 7: 11/03/21 06:37 11/08/21 07:14 Labs: Laboratory Results - last 24 hr 10/31/21 10/31/21 10/31/21 19:01 19:02 21:59 MCV 89.4 MCH 28.7 MCHC 32.1 RDW 14.1 Plt Count 231 MPV 10.6 Immature Gran % (Auto) 0.3 Neut % (Auto) 81.8 H Lymph % (Auto) 10.1 L Cloud % (Auto) 5.2 Eos % (Auto) 2.3 Baso % (Auto) 0.3 Lymph # (Auto) 0.7 L Cloud # (Auto) 0.4 Eos # (Auto) 0.2 Baso # (Auto) 0.0 Abs Immat Gran (auto) 0.02 Absolute Neuts (auto) 6.0 Absolute Nucleated RBC 0.000 Nucleated RBC % (auto) 0.0 Anion Gap 12 Estim Creat Clear Calc 29.4 Estimated GFR 35 Random Glucose 201 H D Lactic Acid 2.5 H* Calcium 9.1 Urine Color Urine Appearance Urine pH Ur Specific Henderson Urine Protein Urine Glucose (UA) Urine Ketones Urine Blood Urine Nitrite Ur Leukocyte Esterase Urine RBC Urine WBC Ur Squamous Epith Cells Ur Renal Epithelial Cell Urine Bacteria COVID-19 (RA) COVID-19 Clin Com Influenza Type A (ROXIE) Influenza Type B (ROXIE) Influenza A & B Note 10/31/21 10/31/21 10/31/21 21:59 21:59 22:43 MCV MCH MCHC RDW Plt Count MPV Immature Gran % (Auto) Neut % (Auto) Lymph % (Auto) Cloud % (Auto) Eos % (Auto) Baso % (Auto) Lymph # (Auto) Cloud # (Auto) Eos # (Auto) Baso # (Auto) Abs Immat Gran (auto) Absolute Neuts (auto) Absolute Nucleated RBC Nucleated RBC % (auto) Anion Gap Estim Creat Clear Calc Estimated GFR Random Glucose Lactic Acid Calcium Urine Color YELLOW Urine Appearance CLOUDY Urine pH 6.0 Ur Specific Henderson 1.010 Urine Protein TRACE Urine Glucose (UA) NEG Urine Ketones NEG Urine Blood 1+ H Urine Nitrite NEG Ur Leukocyte Esterase 3+ H Urine RBC 0-2 Urine WBC TNTC H Ur Squamous Epith Cells NONE Ur Renal Epithelial Cell TRACE Urine Bacteria 2+ COVID-19 (RA) Negative COVID-19 Clin Com See Note Influenza Type A (ROXIE) Negative Influenza Type B (ROXIE) Negative Influenza A & B Note See Note Imaging Radiologist's Impressions: Impressions Abdomen/Pelvis CT 10/31/21 19:46 IMPRESSION: There is bilateral hydronephrosis and the ureters are prominent to the level of the bladder insertion. No obvious stone is seen bilaterally. Bladder wall is thickened and this may be due to cystitis or hypertrophy. Moderate rectosigmoid stool. The bowel pattern is overall nonobstructing. Mild intrahepatic ductal dilatation and common ductal prominence through the pancreas. No obvious pancreatic lesion. Still lesion at the level the ampulla cannot be excluded. If further evaluation is warranted consider MR/MRCP. 9 mm left lower lobe nodule. Recommend full CT of the chest for full evaluation. This may be done on an outpatient basis. Fleischner guidelines were followed. Chest X-Ray 10/31/21 22:10 IMPRESSION: Mild bibasilar linear atelectasis versus scarring. No acute cardiopulmonary process. Assessment and Plan (1) Bilateral hydronephrosis: Status: Acute (2) Bladder outlet obstruction: Status: Acute (3) UGO (acute kidney injury): Status: Resolved Plan 72-year-old male with a past medical history of hypertension, peripheral vascular disease status post bilateral BKA; presented to the hospital with a chief complaint of low back pain/flank pain. Noted to have UTI/from hy dronephrosis. Admitted for further management. UTI/pyelonephritis/hydronephrosis: Vitals currently stable Pain control urology consult Continue ceftriaxone Follow-up cultures UGO on CKD: Patient baseline creatinine around 1.1-1.3. Creatinine on presentation today noted to be 1.84. Gentle IV fluids. Lactic acidosis: Resolved with IV fluids. Constipation: Bowel regimen Ampullary lesion: On CT scan incidentally noted to have mild intrahepatic duct dilatation with common duct prominence to the pancreas question lesion at the ampulla. Suggested MRCP. Will consult Gastroenterology for further recommendations Pulmonary nodule: Outpatient follow-up with PCP for surveillance CT scans. History of hypertension: Hold home antihypertensives for now given sepsis. History of depression: Continue home med has been DVT prophylaxis: Subcu heparin Code status: Full code Quality Stroke Does the patient have a stroke diagnosis?: No VTE Prior VTE?: No VTE Risk Level:: Medical - moderate - high VTE Device Contraindication: Treatment Not Indicated VTE Drug Contraindication: N/A - Med Ordered
[2021-11-01] MEDS: 0.9 % Sodium Chloride 1,000 ML 50 ML IVCONT (00:17)
[2021-11-01 00:58] LABS: ~Lactic Acid-LAB USE ONLY 1.5 mmol/L (0.5-2.0)
[2021-11-01 04:53] LABS: Basophils Percent Auto 0.1 % (0-2); Eosinophils Percent Auto 0.1 % (0-4); Hematocrit 31.1 % (42.0-52.0); Hemoglobin 10.1 g/dl (14.0-18.0); Imm Gran Abs Auto 0.07 X10*3/uL (0.00-0.03); Imm Gran Pct Auto 0.5 % (0.0-0.4); Lymphocytes Absolute Auto 0.5 X10*3/uL (1.2-4.9); Lymphocytes Percent Auto 3.7 % (20-40); MANUAL DIFF FLAG SCAN; Mean Corpuscular HGB Conc 32.5 g/dl (31.0-36.0); Mean Corpuscular Hemoglobin 28.9 pg (27.0-33.0); Mean Corpuscular Volume 89.1 fL (80.0-98.0); Mean Platelet Volume 9.7 fL (9.4-12.4); Monocytes Absolute Auto 0.4 X10*3/uL (0.1-1.2); Monocytes Percent Auto 3.3 % (2-11); Neutrophils Absolute Auto 11.9 x10*3/uL (2.0-8.3); Neutrophils Percent Auto 92.3 % (45-73); Platelet Count 194 X10*3/uL (160-400); Red Blood Count 3.49 X10*6/uL (4.60-5.80); Red Cell Distribution Width 14.1 % (11.0-16.0); SCAN SMEAR FLAG 1; White Blood Count 12.9 X10*3/uL (4.8-10.8)
[2021-11-01 05:14] LABS: Anion Gap 13 (12-20); Blood Urea Nitrogen 27 mg/dL (9-16); Calcium 8.7 mg/dL (8.4-10.2); Carbon Dioxide 20 mmol/L (22-29); Chloride 114 mmol/L (96-108); Creatinine Clr Calc Pharmacy 28.5; Estimated Glomerular Filt Rate 34; Glucose Random 121 mg/dL (60-115); Potassium 3.9 mmol/L (3.3-5.1); SLIDE REVIEW VERIFIED; Sodium 143 mmol/L (135-145)
--- NOTE | 2021-11-01 07:35 | PHA.MEDREC ---
Pharmacy Consult ? Medication Reconciliation Pharmacy has completed the medication reconciliation. There are no remarkable issues for provider's attention. Ciera Dent, FeiD
--- NOTE | 2021-11-01 08:04 | PC.NURSE ---
pt resting in the stretcher, alert and oriented, skin pwd, respirations even and unlabored, pt reports lower back pain at 4/10, denies nausea, vs stable, buck placed by previous shift and 600ml darker yellow urine present in the Buck.
[2021-11-01] MEDS: Heparin Sodium,Porcine 5,000 UNIT/ML VIAL 5000 UNIT SUBCUT ×3 (08:07→23:47)
[2021-11-01] MEDS: 0.9 % Sodium Chloride Flush 3 ML SYRINGE IVFLUSH (08:08)
--- NOTE | 2021-11-01 11:22 | PM.EVENT ---
Event Note Date of Service: 11/01/21 Event Note: I personally signed examine the patient who was admitted just this morning for urinary tract infection pyelonephritis and clinically seems stable. Assessment and plan per the H&P from this morning
[2021-11-01] MEDS: Finasteride 5 MG TABLET PO (13:15)
[2021-11-01] MEDS: HYDROmorphone HCl 0.5 MG/0.5 ML SYRINGE IVPUSH (13:18)
--- NOTE | 2021-11-01 13:31 | PC.NURSE ---
report given to overflow
--- NOTE | 2021-11-01 14:11 | MHC.CM.PN ---
Addendum entered by Tiffany Curtis 11/01/21 14:26: [facility] is not on [facility]: call placed to agency at [phone]. Per Director, Karolina, pt and spouse have services with them. Pt's spouse is very deconditioned and will remain in [facility] today. She is a physical assist to pt but may not be able to help when she is home. Karolina states agency has been providing 24 hour care when needed for pt / spouse but will need a 48 hour lead time to coordinate care givers. In light of this new information, D/C plan may need revision depending on spousal participation in pt care needs. CM to re-eval. Pt will need transportation home; w/c van vs BLS. Original Note: Met with pt to review d/c planning needs. Pt resides with spouse and has a fully adaptive home including a stair lift on each floor, w/c, slide board, grab bars, etc. Pt is active with [facility] and will be re-referred: Pt's spouse may transport home if she is feeling well (she is being d/c'd from [facility] today) or he will need a w/c van. Pfizer x 3, IMM in chart, HCP on file. CM to follow.
--- NOTE | 2021-11-01 14:13 | PC.NURSE ---
PT INCONTINENT OF LARGE AMOUNT OF SOFT BROWN STOOL. PT CLEANED AND BEDDING CHANGED. RN AWARE.
--- NOTE | 2021-11-01 14:27 | PC.NURSE ---
1400 F/C patent, Draining thick cloudy urine with sediment.
[2021-11-01 16:32] LABS: Alanine Aminotransferase 81 U/L (0-40); Albumin Level 2.8 g/dL (3.5-5.0); Alkaline Phosphatase 154 U/L (39-117); Aspartate Amino Transferase 89 U/L (5-37); Bilirubin Direct 2.4 mg/dL (0.0-0.5); Bilirubin Total 2.9 mg/dL (0.0-1.0); Total Protein 5.5 g/dL (6.5-8.0)
[2021-11-01] MEDS: 0.9 % Sodium Chloride 1,000 ML 100 ML IVCONT (19:31)
--- NOTE | 2021-11-01 19:34 | PM.EVENT ---
Event Note Date of Service: 11/01/21 Event Note: GI Consult-Full note dictated Imp: Painless jaundice with some evidence of biliary obstruction on the CT scan. Diff dx: Distal cholangiocarcinoma, pancreatic head lesion, ampullary lesion, CBD stone. Rec: MRCP for further evaluation and F/U LFT's. He may require an ERCP for further diagnostic and therapeutic measures as well. If ERCP is contemplated his blood thinners would need to be held appropriately. D/W patient in detail. He is comfortable with this plan. Thanks
[2021-11-01] MEDS: Ascorbic Acid 500 MG TABLET PO (20:06)
[2021-11-01] MEDS: Ferrous Sulfate 324 MG TABLET.DR PO (20:07)
[2021-11-01] MEDS: Donepezil HCl 5 MG TABLET PO (20:09)
[2021-11-01] MEDS: Acetaminophen 325 MG TABLET PO (20:09)
[2021-11-01] MEDS: cefTRIAXone sodium 1 GM in 0.9 % Sodium Chloride 50 ML IV (20:59)
[2021-11-02] VITALS (7 sets, daily range): BP systolic 85–154; BP diastolic 41–71; PULSE 62–85; RESP 17–25; TEMP 36.6–37.6; O2SAT 88–98
[2021-11-02] MEDS: Acetaminophen 325 MG TABLET 650 MG PO (02:30)
--- NOTE | 2021-11-02 04:34 | PC.NURSE ---
Patient's BP 77/36 , asymptomatic . Dr. David notified, 500 ml NS bolus ordered along with lab work. BP now 93/44 after bolus. Will continue to monitor.
[2021-11-02] MEDS: 0.9 % Sodium Chloride 1,000 ML 50 ML IVCONT (04:42)
[2021-11-02 04:58] LABS: Lactic Acid 0.9 mmol/L (0.5-2.0)
[2021-11-02 05:03] LABS: Alanine Aminotransferase 57 U/L (0-40); Albumin Level 2.4 g/dL (3.5-5.0); Alkaline Phosphatase 131 U/L (39-117); Anion Gap 12 (12-20); Aspartate Amino Transferase 50 U/L (5-37); Bilirubin Direct 1.8 mg/dL (0.0-0.5); Bilirubin Total 2.2 mg/dL (0.0-1.0); Blood Urea Nitrogen 37 mg/dL (9-16); Calcium 7.8 mg/dL (8.4-10.2); Carbon Dioxide 17 mmol/L (22-29); Chloride 116 mmol/L (96-108); Creatinine Clr Calc Pharmacy 22.8; Estimated Glomerular Filt Rate 26; Glucose Random 81 mg/dL (60-115); Potassium 3.9 mmol/L (3.3-5.1); Sodium 141 mmol/L (135-145); Total Protein 4.7 g/dL (6.5-8.0)
[2021-11-02] MEDS: 0.9 % Sodium Chloride 1,000 ML 100 ML IVCONT (05:24)
[2021-11-02] MEDS: 0.9 % Sodium Chloride 500 ML 999 ML IV (05:26)
--- NOTE | 2021-11-02 05:35 | CONS_ITS ---
DATE OF SERVICE: 11/01/2021 REASON FOR CONSULTATION: Abnormal CT scan of bile duct and elevated LFTs. HISTORY OF PRESENT ILLNESS: The patient is an 85-year-old male admitted to the hospital for primarily issues with some left-sided flank pain and left-sided abdominal pain. Based on his workup, it appears that he has a urinary infection. Prior to this, he denies any particular abdominal complaints nor GI issues. He has enjoyed a good appetite without any significant heartburn nor dysphagia. He has not had any signs of jaundice. He reports his bowel movements are fairly regular and without any sign of melena nor hematochezia. He denies any weight loss. He denies any previous history of pancreas disease nor liver disease in himself nor family members. During his workup here in the hospital, he underwent a CT scan. This did reveal bilateral mild hydronephrosis but no evidence of any definitive kidney stones. However, also noted was a prominent common bile duct of 1.2 cm and without any sign of gallstones or common bile duct stones. The pancreas appeared unremarkable. The radiologist also describes some mild intrahepatic ductal dilatation. The radiologist raises suspicion of a possible ampullary lesion as a possibility that might be contributing to his bile duct dilatation, but did not actually see an ampullary lesion. MEDICATIONS: Include acetaminophen, ascorbic acid, ceftriaxone, clopidogrel, Aricept, doxazosin, iron, Proscar, subcu heparin, Dilaudid p.r.n., eyedrops, melatonin, omeprazole, potassium, and Senokot. PAST MEDICAL HISTORY: Peripheral vascular disease with a BKA. He has had an appendectomy. Hip replacement. Medical issues include that of chronic renal insufficiency, reflux, hypertension, peripheral vascular disease and polyneuropathy. He denies any history of OH, nor stroke. SOCIAL HISTORY: He is . He does not smoke nor use any significant amounts of alcohol. FAMILY HISTORY: Noncontributory. REVIEW OF SYSTEMS: CONSTITUTIONAL: He reports that he has been feeling fairly well prior to becoming ill recently. SKIN: No rash. No pruritus. CARDIAC: No chest pain. PULMONARY: No coughing or hemoptysis. GI: As above. He denies any dysphagia nor significant heartburn. He has not noticed any signs of bleeding. PHYSICAL EXAMINATION: GENERAL: The patient is a pleasant, alert, comfortable appearing male. SKIN: Warm and dry. Anicteric sclerae. NECK: Supple. CARDIAC: Normal S1, S2. ABDOMEN: Soft, nondistended, nontender without palpable mass. LABORATORY DATA: CT scan as described above. White blood cell count 7.3, hemoglobin 10.6, platelets 231,000, PT 14.8 with INR 1.2. His liver profile from today showed a total bilirubin of 2.9, direct bilirubin 2.4, AST 89, ALT 81, alkaline phosphatase 154, and albumin 2.8. The only other liver profile that I see most recently was from 2019 it appears to have been unremarkable at that time with completely normal values back in 2019. In looking back in his medical record, I do not see any other imaging studies of his bile ducts with ultrasound or CT scan. IMPRESSION: Given the patient's CT scan findings and abnormal LFTs this does raise the possibility of some type of silent neoplastic process in the very distal portion of the common bile duct, the head of the pancreas, and/or the major ampulla. At this point, I would recommend an MRCP for further evaluation. He will have followup laboratories tomorrow as well. Given his age and medical issues, he certainly would not be a candidate for aggressive surgical intervention, but nonetheless it would be important to exclude any process that might cause worsening jaundice. He may require an ERCP for further evaluation as well both for diagnostic and therapeutic purposes in regard to relieving the obstruction and jaundice. This has all been discussed in detail with the patient and he is comfortable with this plan. Thank you for the consultation. MD PINEDA Gayle/JULIO / [phone] MTDD
--- NOTE | 2021-11-02 07:58 | PC.NURSE ---
pt to go to MRI off monitoring and off fluids.
[2021-11-02] MEDS: 0.9 % Sodium Chloride 1,000 ML 999 ML IVCONT (08:44)
--- NOTE | 2021-11-02 08:45 | PC.NURSE ---
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 ok to stop IVF infusion of NS @100ml/hr. to d/c order for NS @ 50 ml/hr - awaiting order in the computer to reflect
[2021-11-02] MEDS: Cyanocobalamin (Vitamin B-12) 1,000 MCG TABLET 1000 MCG PO (10:07)
[2021-11-02] MEDS: Acetaminophen 325 MG TABLET PO ×2 (10:07→21:36)
[2021-11-02] MEDS: Ascorbic Acid 500 MG TABLET PO ×2 (10:08→21:36)
[2021-11-02] MEDS: Omeprazole 20 MG CAPSULE.DR PO (10:08)
[2021-11-02] MEDS: Clopidogrel Bisulfate 75 MG TABLET PO (10:08)
[2021-11-02] MEDS: Finasteride 5 MG TABLET PO (10:08)
[2021-11-02] MEDS: Heparin Sodium,Porcine 5,000 UNIT/ML VIAL 5000 UNIT SUBCUT ×3 (10:09→23:35)
--- NOTE | 2021-11-02 11:37 | PC.NURSE ---
okay for patient to go to MRI off tele monitor per Dr Dawn
--- NOTE | 2021-11-02 11:43 | P.PNIM_ITS ---
Subjective Subjective Date of Service: 11/03/21 Interval History: f/u on UTI interval history; feels much better today, Review of Systems no fever or chils, no dysuura, no abdominal pain Physical Exam Vital Signs: Vital Signs: Last Vital Signs Temp 98.7 F 11/02/21 08:52 Pulse 62 11/02/21 08:17 Resp 25 H 11/02/21 08:17 BP 105/41 L 11/02/21 08:17 Pulse Ox 94 11/02/21 08:17 BMI result Body Mass Index 28.1 Const: Other: General: AO X 3, no acute distress Resp: CTA bilateral CVS: S1,S2,RRR GI: +BS, NT, no distention Skin: No rash ex siena bka Neuro: motor grossly intact Psych: appropriate affect Objective Data Active Medications Acetaminophen (Acetaminophen 325 Mg Tablet) 650 mg PO Q6H PRN PRN Reason: Pain, Mild (Pain Scale 1-3) Last Admin: 11/02/21 02:30 Dose: 650 mg Documented by: NAFISA Acetaminophen (Acetaminophen 325 Mg Tablet) 325 mg PO BID [facility] Last Admin: 11/02/21 10:07 Dose: 325 mg Documented by: PAYAL Ascorbic Acid (Ascorbic Acid 500 Mg Tablet) 500 mg PO BID [facility] Last Admin: 11/02/21 10:08 Dose: 500 mg Documented by: PAYAL Brimonidine Tartrate (Brimonidine Tartrate 0.2% Oph 5 Ml Bottle) 1 drop EYE- BOTH BID [facility] Last Admin: 11/02/21 11:35 Dose: Not Given Documented by: BERE Non-Admin Reason: Med Not Available Clopidogrel Bisulfate (Clopidogrel Bisulfate 75 Mg Tablet) 75 mg PO DAILY [facility] Last Admin: 11/02/21 10:08 Dose: 75 mg Documented by: PAYAL Cyanocobalamin (Cyanocobalamin (Vitamin B-12) 1,000 Mcg Tablet) 1,000 mcg PO DAILY [facility] Last Admin: 11/02/21 10:07 Dose: 1,000 mcg Documented by: PAYAL Donepezil HCl (Donepezil Hcl 5 Mg Tablet) 5 mg PO BEDTIME [facility] Last Admin: 11/01/21 20:09 Dose: 5 mg Documented by: KO Doxazosin Mesylate (Doxazosin Mesylate 2 Mg Tablet) 4 mg PO BEDTIME RAYSA; Protocol Last Admin: 11/01/21 20:09 Dose: Not Given Documented by: KO Non-Admin Reason: Patient Condition Contraindication Ferrous Sulfate (Ferrous Sulfate 324 Mg Tablet.) 324 mg PO BEDTIME [facility] Last Admin: 11/01/21 20:07 Dose: 324 mg Documented by: KO Finasteride (Finasteride 5 Mg Tablet) 5 mg PO DAILY [facility] Last Admin: 11/02/21 10:08 Dose: 5 mg Documented by: PAYAL Heparin Sodium (Porcine) (Heparin Sodium,Porcine 5,000 Unit/Ml Vial) 5,000 unit SUBCUT Q8H [facility] Last Admin: 11/02/21 10:09 Dose: 5,000 unit Documented by: PAYAL Hydromorphone HCl (Hydromorphone Hcl 0.5 Mg/0.5 Ml Syringe) 0.5 mg IVPUSH Q4H PRN; Protocol PRN Reason: Breakthrough Pain Last Admin: 11/01/21 13:18 Dose: 0.5 mg Documented by: PRETTY Sodium Chloride (Ns) 1,000 mls @ 50 mls/hr IVCONT .Q20H [facility] Last Infusion: 11/02/21 08:45 Dose: 0 mls/hr Documented by: SRINIVAS Ceftriaxone Sodium 1 gm/ (Sodium Chloride) 50 mls @ 100 mls/hr IV Q24H RAYSA Last Infusion: 11/02/21 00:26 Dose: 100 mls/hr Documented by: NAFISA Sodium Chloride (Ns) 1,000 mls @ 100 mls/hr IVCONT .Q10H [facility] Last Infusion: 11/02/21 08:43 Dose: 0 mls/hr Documented by: SRINIVAS Latanoprost (Latanoprost 0.005 % Ophth Shilpa 2.5 Ml Drops) 1 drop EYE-BOTH BEDTIME [facility] Last Admin: 11/01/21 20:24 Dose: Not Given Documented by: KO Non-Admin Reason: Med Not Available Melatonin (Melatonin 3 Mg Tablet) 6 mg PO BEDTIME PRN PRN Reason: Insomnia Omeprazole (Omeprazole 20 Mg Capsule.) 20 mg PO DAILY [facility] Last Admin: 11/02/21 10:08 Dose: 20 mg Documented by: PAYAL Pharmacy Consult (Consult Rx Perform Med Rec) 1 each MISCELLANE ONCE PRN PRN Reason: Consult order Potassium Chloride (Potassium Chloride Er 10 Meq Capsule.Er) 10 meq PO DAILY [facility] Last Admin: 11/02/21 10:07 Dose: 10 meq Documented by: PAYAL Senna (Sennosides 8.6 Mg Tablet) 17.2 mg PO BEDTIME PRN PRN Reason: Constipation Sodium Chloride (0.9 % Sodium Chloride Flush 3 Ml Syringe) 3 ml IVFLUSH QSHIFT [facility] Last Admin: 11/02/21 08:44 Dose: Not Given Documented by: SRINIVAS Non-Admin Reason: IV Running Labs CBC & Chem 7: 11/03/21 06:37 11/03/21 06:37 Labs: Laboratory Results - last 24 hr 11/01/21 11/02/21 11/02/21 16:03 04:30 04:30 Anion Gap 12 Estim Creat Clear Calc 22.8 Estimated GFR 26 Random Glucose 81 Lactic Acid 0.9 Calcium 7.8 L D Total Bilirubin 2.9 H 2.2 H Direct Bilirubin 2.4 H 1.8 H AST 89 H 50 H D ALT 81 H 57 H Alkaline Phosphatase 154 H 131 H Total Protein 5.5 L 4.7 L Albumin 2.8 L 2.4 L Microbiology Microbiology Results: Microbiology 10/31/21 Unknown Urine Culture - Preliminary Urine Catheterized - Richter Catheter Gram negative susie 10/31/21 22:05 Blood Culture - Preliminary Blood - Venous No growth after 24 hours. 10/31/21 21:59 Blood Culture - Preliminary Blood - Venous No growth after 24 hours. Assessment and Plan (1) Acute UTI: Status: Acute Plan 72-year-old male with a past medical history of hypertension, 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 Noted to have UTI/from hydronephrosis.? Admitted for further management.? UTI/pyelonephritis/hydronephrosis: Urine culture showing E.coli -continue Ceftriaxone for now UGO on CKD: Patient baseline creatinine around 1.1-1.3.? Creatine is worse today. Urol consult, IVF and repeat labs tomorrow Lactic acidosis:? Resolved with IV fluids. Constipation: Bowel regimen Ampullary lesion:? On CT scan incidentally noted to have mild intrahepatic duct dilatation with common duct prominence to the pancreas question lesion at the ampulla.? MRCP no mas , no stone, Pulmonary nodule:? Outpatient follow-up with PCP for surveillance CT scans. History of hypertension:? Hold home antihypertensives for now given sepsis.? History of depression: Continue home med has been DVT prophylaxis:? Subcu heparin Code status:? Full code Inaptient need for UGO, UTI needing IV abx, and IVF and deconditioning and will likely need placement. Quality Stroke Does the patient have a stroke diagnosis?: No VTE Prior VTE?: No VTE Risk Level:: Medical - moderate - high VTE Device Contraindication: Treatment Not Indicated VTE Drug Contraindication: N/A - Med Ordered
--- NOTE | 2021-11-02 15:50 | P.CONNP_ITS ---
History of Present Illness Reason for Consult Consult date: 11/02/21 Reason for consult: UGO Chief Complaint Chief complaint: UTI History of Present Illness Narrative: 85 y/o male with history of CKD 3a/b (BL S-Cr ~ 1.1-1.3 mg/dL), PVD, s/p bilateral BKA's, GERD, ?mild dementia (on aricept), who presented to [facility] on 10/31/21 via EMS with complaints of nontraumatic left-sided flank pain and left- sided abdominal pain that began the day prior to his admission. In the ED the patient was noted to be shaking with rigors - temp is 102.8. Initial BUN/Cr = 27/1.84 with lacitc acid = 2.5 on 10/31. He underwent CT scan with revealed bilateral hydronephrosis as well as a prominent common bile duct of 1.2 cm and without any sign of gallstones or common bile duct stones. GI is now following patient. He was started on IV abx for pyelonephritis and urine cultures have revealed GNR. Urology also on board given b/l hydronephrosis. Repeat labs today ( 11/02) demonstrated upward trend in BUN/Cr = 37/2.37 with nephrology subsequently being consulted. 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) Alcohol intake: never Patient Tobacco Use Status: Former Tobacco user service: No Current occupational status: retired Meds Allergies Allergy/AdvReac Type Severity Reaction Status Date / Time No Known Allergies Allergy Verified 10/31/21 18:28 [No Known Allergies*] Active Medications: Current Medications Acetaminophen (Acetaminophen 325 Mg Tablet) 650 mg PO Q6H PRN PRN Reason: Pain, Mild (Pain Scale 1-3) Last Admin: 11/02/21 02:30 Dose: 650 mg Documented by: Acetaminophen (Acetaminophen 325 Mg Tablet) 325 mg PO BID [facility] Last Admin: 11/02/21 10:07 Dose: 325 mg Documented by: Ascorbic Acid (Ascorbic Acid 500 Mg Tablet) 500 mg PO BID [facility] Last Admin: 11/02/21 10:08 Dose: 500 mg Documented by: Brimonidine Tartrate (Brimonidine Tartrate 0.2% Oph 5 Ml Bottle) 1 drop EYE- BOTH BID [facility] Last Admin: 11/02/21 11:35 Dose: Not Given Documented by: Clopidogrel Bisulfate (Clopidogrel Bisulfate 75 Mg Tablet) 75 mg PO DAILY [facility] Last Admin: 11/02/21 10:08 Dose: 75 mg Documented by: Cyanocobalamin (Cyanocobalamin (Vitamin B-12) 1,000 Mcg Tablet) 1,000 mcg PO DAILY [facility] Last Admin: 11/02/21 10:07 Dose: 1,000 mcg Documented by: Donepezil HCl (Donepezil Hcl 5 Mg Tablet) 5 mg PO BEDTIME [facility] Last Admin: 11/01/21 20:09 Dose: 5 mg Documented by: Doxazosin Mesylate (Doxazosin Mesylate 2 Mg Tablet) 4 mg PO BEDTIME [facility]; Protocol Last Admin: 11/01/21 20:09 Dose: Not Given Documented by: Ferrous Sulfate (Ferrous Sulfate 324 Mg Tablet.Dr) 324 mg PO BEDTIME [facility] Last Admin: 11/01/21 20:07 Dose: 324 mg Documented by: Finasteride (Finasteride 5 Mg Tablet) 5 mg PO DAILY [facility] Last Admin: 11/02/21 10:08 Dose: 5 mg Documented by: Heparin Sodium (Porcine) (Heparin Sodium,Porcine 5,000 Unit/Ml Vial) 5,000 unit SUBCUT Q8H [facility] Last Admin: 11/02/21 10:09 Dose: 5,000 unit Documented by: Hydromorphone HCl (Hydromorphone Hcl 0.5 Mg/0.5 Ml Syringe) 0.5 mg IVPUSH Q4H PRN; Protocol PRN Reason: Breakthrough Pain Last Admin: 11/01/21 13:18 Dose: 0.5 mg Documented by: Ceftriaxone Sodium 1 gm/ (Sodium Chloride) 50 mls @ 100 mls/hr IV Q24H [facility] Last Infusion: 11/02/21 00:26 Dose: Infused Documented by: Sodium Chloride (Ns) 1,000 mls @ 150 mls/hr IVCONT .Q6H40M [facility] Last Infusion: 11/02/21 08:43 Dose: 0 mls/hr Documented by: Latanoprost (Latanoprost 0.005 % Ophth Shilpa 2.5 Ml Drops) 1 drop EYE-BOTH BEDTIME [facility] Last Admin: 11/01/21 20:24 Dose: Not Given Documented by: Melatonin (Melatonin 3 Mg Tablet) 6 mg PO BEDTIME PRN PRN Reason: Insomnia Omeprazole (Omeprazole 20 Mg Capsule.Dr) 20 mg PO DAILY [facility] Last Admin: 11/02/21 10:08 Dose: 20 mg Documented by: Pharmacy Consult (Consult Rx Perform Med Rec) 1 each MISCELLANE ONCE PRN PRN Reason: Consult order Potassium Chloride (Potassium Chloride Er 10 Meq Capsule.Er) 10 meq PO DAILY [facility] Last Admin: 11/02/21 10:07 Dose: 10 meq Documented by: Senna (Sennosides 8.6 Mg Tablet) 17.2 mg PO BEDTIME PRN PRN Reason: Constipation Sodium Chloride (0.9 % Sodium Chloride Flush 3 Ml Syringe) 3 ml IVFLUSH QSHIFT [facility] Last Admin: 11/02/21 08:44 Dose: Not Given Documented by: Home Medications Medication Instructions Recorded Confirmed Last Taken Type clopidogrel 75 mg tablet 75 mg PO DAILY 04/18/20 11/01/21 10/31/21 History latanoprost 0.005 % eye drops 1 drp OPHTHALMIC (EYE) BEDTIME ml 04/18/20 11/01/21 10/31/21 History omeprazole 20 mg capsule,delayed 20 mg PO DAILY 04/18/20 11/01/21 10/31/21 History release potassium chloride 10 mEq 10 meq PO DAILY 04/18/20 11/01/21 10/31/21 History tablet,extended release acetaminophen 500 mg tablet 500 mg PO BID 11/01/21 11/01/21 10/31/21 History ascorbic acid (vitamin C) 500 mg 500 mg PO BID 11/01/21 11/01/21 10/31/21 History tablet brimonidine 0.2 % eye drops 1 drp OPHTHALMIC (EYE) BID 11/01/21 11/01/21 10/31/21 History carvedilol 12.5 mg tablet 1 tab PO BID 11/01/21 11/01/21 10/31/21 History cyanocobalamin (vitamin B-12) 1 tab PO DAILY 11/01/21 11/01/21 10/31/21 History 1,000 mcg tablet (Vitamin B-12) donepezil 5 mg tablet 1 tab PO QPM 11/01/21 11/01/21 10/31/21 History ferrous sulfate 325 mg (65 mg 1 tab PO QPM 11/01/21 11/01/21 10/31/21 History iron) tablet Physical Exam Vital Signs: Last Vital Signs Temp 98.7 F 11/02/21 08:52 Pulse 62 11/02/21 08:17 Resp 25 H 11/02/21 08:17 BP 105/41 L 11/02/21 08:17 Pulse Ox 94 11/02/21 08:17 BMI result Body Mass Index 28.1 Const General: cooperative, comfortable and no acute distress HEENT Head: Yes normocephalic and Yes atraumatic Neck Neck: Yes no JVD Resp Effort & Inspection: normal respiratory effort Auscultation: clear to auscultation bilaterally Cardio Jugular venous distension: no JVD Rate: regular rate Rhythm: regular rhythm Heart sounds: S1 normal heart sound present and S2 normal heart sound present GI Auscultation: normal bowel sounds Neuro General: no focal motor deficits Extrem Other: bl bka's Results Lab Results Result Diagrams: 11/01/21 04:48 11/02/21 04:30 Lab results: Chemistry 10/31/21 11/01/21 11/02/21 19:02 04:48 04:30 Sodium 142 143 141 Potassium 4.5 3.9 3.9 Carbon Dioxide 23 20 L 17 L BUN 27 H 27 H 37 H Creatinine 1.84 H 1.90 H 2.37 H Calcium 9.1 8.7 7.8 L D Hematology 10/31/21 11/01/21 19:01 04:48 WBC 7.3 12.9 H Hgb 10.6 L 10.1 L Plt Count 231 194 Urinalysis 10/31/21 22:43 Urine Color YELLOW Urine Appearance CLOUDY Urine pH 6.0 Ur Specific [place] 1.010 Urine Protein TRACE Urine Glucose (UA) NEG Urine Ketones NEG Urine Blood 1+ H Urine Nitrite NEG Ur Leukocyte Esterase 3+ H Urine RBC 0-2 Urine WBC TNTC H Ur Squamous Epith Cells NONE Assessment and Plan (1) Bilateral hydronephrosis: Status: Acute (2) UGO (acute kidney injury): Status: Acute Plan #) UGO, Non-oliguric The patient presented with noted UGO with prior known BL S-Cr ~ 1.1-1.3 mg/dL. He was noted to have b/l hydronephrosis per CT imaging with concerns for pyelonephritis. He has received IVF s and was started on appropriate abx for GNR's. Despite ivf's and abx, he has had noted increase in S-Cr from 1.84 to 2.37 mg/dL No nsaid use prior to presentation, not on acei/arb, and thus far no contrast exposure for imaging/diagnostics. Suggest: repeat UA adding c3/c4 to rule out post-infectious gn although degree of hematuria not convincing of this. presentation is more consistent with post-obs atn. Supportive care with ivf's and electrolyte correction and trend S-Cr. #) CKD - Anemia: Iron panel added for am. #) CKD-MBD: PTH, vitD for am. Procedures Date of Service Date of Service: 11/02/21
[2021-11-02] MEDS: 0.9 % Sodium Chloride 1,000 ML 150 ML IVCONT ×2 (17:00→21:35)
[2021-11-02] MEDS: 0.9 % Sodium Chloride Flush 3 ML SYRINGE IVFLUSH ×2 (17:01→21:36)
[2021-11-02] MEDS: cefTRIAXone sodium 1 GM in 0.9 % Sodium Chloride 50 ML IV (21:35)
[2021-11-02] MEDS: Doxazosin Mesylate 2 MG TABLET 4 MG PO (21:35)
[2021-11-02] MEDS: Donepezil HCl 5 MG TABLET PO (21:35)
[2021-11-02] MEDS: Ferrous Sulfate 324 MG TABLET.DR PO (21:36)
[2021-11-02 23:54] LABS: Appearance Urine HAZY; Color Urine YELLOW; Glucose Urine UA NEG (NEG); Leukocyte Esterase Urine 3+ (NEG); Nitrite Urine NEG (NEG); Specific Gravity - Urine 1.015 (1.005-1.025); Urine Blood 3+ (NEG); Urine Ketones NEG (NEG); Urine Protein 2+ MG/DL (NEG-TRACE)
[2021-11-03 00:03] LABS: Bacteria Urine 2+ /LPF; Mucus Urine 2+ /LPF; Squamous Epithelial Cell Urine 1+ /LPF; WBC Urine 30-49 /HPF (0-4)
[2021-11-03 03:22] VITALS: BP 100/51; PULSE 62; RESP 18; TEMP 37.4; O2SAT 94
[2021-11-03] MEDS: 0.9 % Sodium Chloride 1,000 ML 150 ML IVCONT ×2 (06:00→12:43)
[2021-11-03 07:08] LABS: Hematocrit 26.8 % (42.0-52.0); Hemoglobin 8.5 g/dl (14.0-18.0); Mean Corpuscular HGB Conc 31.7 g/dl (31.0-36.0); Mean Corpuscular Hemoglobin 28.5 pg (27.0-33.0); Mean Corpuscular Volume 89.9 fL (80.0-98.0); Mean Platelet Volume 10.7 fL (9.4-12.4); Platelet Count 154 X10*3/uL (160-400); Red Blood Count 2.98 X10*6/uL (4.60-5.80); Red Cell Distribution Width 14.8 % (11.0-16.0); White Blood Count 5.2 X10*3/uL (4.8-10.8)
[2021-11-03 07:17] VITALS: BP 105/54; PULSE 64; RESP 20; TEMP 37.3; O2SAT 95
[2021-11-03 07:37] LABS: Anion Gap 10 (12-20); Blood Urea Nitrogen 33 mg/dL (9-16); Calcium 7.9 mg/dL (8.4-10.2); Carbon Dioxide 18 mmol/L (22-29); Chloride 118 mmol/L (96-108); Creatinine Clr Calc Pharmacy 27.8; Estimated Glomerular Filt Rate 33; Glucose Random 89 mg/dL (60-115); Iron 19 mcg/dL (45-160); Percent Iron Saturation 14 % (15-50); Potassium 3.7 mmol/L (3.3-5.1); Sodium 142 mmol/L (135-145); Total Iron Binding Capacity 133 mcg/dL (228-428); Unsaturated Iron Binding 114 ug/dL
[2021-11-03 07:43] LABS: Alanine Aminotransferase 42 U/L (0-40); Albumin Level 2.3 g/dL (3.5-5.0); Alkaline Phosphatase 167 U/L (39-117); Aspartate Amino Transferase 28 U/L (5-37); Bilirubin Direct 1.3 mg/dL (0.0-0.5); Bilirubin Total 1.8 mg/dL (0.0-1.0); Total Protein 4.8 g/dL (6.5-8.0)
[2021-11-03] MEDS: Finasteride 5 MG TABLET PO (09:54)
[2021-11-03] MEDS: Heparin Sodium,Porcine 5,000 UNIT/ML VIAL 5000 UNIT SUBCUT ×2 (09:55→15:16)
[2021-11-03] MEDS: Cyanocobalamin (Vitamin B-12) 1,000 MCG TABLET 1000 MCG PO (09:55)
[2021-11-03] MEDS: Acetaminophen 325 MG TABLET PO ×2 (09:55→20:28)
[2021-11-03] MEDS: Clopidogrel Bisulfate 75 MG TABLET PO (09:55)
[2021-11-03] MEDS: Ascorbic Acid 500 MG TABLET PO ×2 (09:55→20:28)
[2021-11-03] MEDS: Omeprazole 20 MG CAPSULE.DR PO (09:55)
--- NOTE | 2021-11-03 11:03 | P.PNIM_ITS ---
Subjective Subjective Date of Service: 11/03/21 Interval History: f/u on UTI interval history: No fever, BP is better, overall feels better and asking when he can go home Review of Systems no fever or chils, no dysuura, no abdominal pain Physical Exam Vital Signs: Vital Signs: Last Vital Signs Temp 99.2 F 11/03/21 07:17 Pulse 64 11/03/21 07:17 Resp 20 11/03/21 07:17 BP 105/54 L 11/03/21 07:17 Pulse Ox 95 11/03/21 07:17 BMI result Body Mass Index 28.1 Const: Other: General: AO X 3, no acute distress Resp: CTA bilateral CVS: S1,S2,RRR GI: +BS, NT, no distention Skin: No rash ex siena bka Neuro: motor grossly intact Psych: appropriate affect Objective Data Active Medications Acetaminophen (Acetaminophen 325 Mg Tablet) 650 mg PO Q6H PRN PRN Reason: Pain, Mild (Pain Scale 1-3) Last Admin: 11/02/21 02:30 Dose: 650 mg Documented by: NAFISA Acetaminophen (Acetaminophen 325 Mg Tablet) 325 mg PO BID [facility] Last Admin: 11/03/21 09:55 Dose: 325 mg Documented by: GOKUL Ascorbic Acid (Ascorbic Acid 500 Mg Tablet) 500 mg PO BID [facility] Last Admin: 11/03/21 09:55 Dose: 500 mg Documented by: GOKUL Brimonidine Tartrate (Brimonidine Tartrate 0.2% Oph 5 Ml Bottle) 1 drop EYE- BOTH BID [facility] Last Admin: 11/03/21 09:55 Dose: Not Given Documented by: GOKUL Non-Admin Reason: Patient Refused Clopidogrel Bisulfate (Clopidogrel Bisulfate 75 Mg Tablet) 75 mg PO DAILY [facility] Last Admin: 11/03/21 09:55 Dose: 75 mg Documented by: GOKUL Cyanocobalamin (Cyanocobalamin (Vitamin B-12) 1,000 Mcg Tablet) 1,000 mcg PO DAILY [facility] Last Admin: 11/03/21 09:55 Dose: 1,000 mcg Documented by: BERTEMA Donepezil HCl (Donepezil Hcl 5 Mg Tablet) 5 mg PO BEDTIME [facility] Last Admin: 11/02/21 21:35 Dose: 5 mg Documented by: FERNANDO Doxazosin Mesylate (Doxazosin Mesylate 2 Mg Tablet) 4 mg PO BEDTIME [facility]; Protocol Last Admin: 11/02/21 21:35 Dose: 4 mg Documented by: FERNANDO Ferrous Sulfate (Ferrous Sulfate 324 Mg Tablet.) 324 mg PO BEDTIME [facility] Last Admin: 11/02/21 21:36 Dose: 324 mg Documented by: FERNANDO Finasteride (Finasteride 5 Mg Tablet) 5 mg PO DAILY [facility] Last Admin: 11/03/21 09:54 Dose: 5 mg Documented by: GOKUL Heparin Sodium (Porcine) (Heparin Sodium,Porcine 5,000 Unit/Ml Vial) 5,000 unit SUBCUT Q8H [facility] Last Admin: 11/03/21 09:55 Dose: 5,000 unit Documented by: GOKUL Hydromorphone HCl (Hydromorphone Hcl 0.5 Mg/0.5 Ml Syringe) 0.5 mg IVPUSH Q4H PRN; Protocol PRN Reason: Breakthrough Pain Last Admin: 11/01/21 13:18 Dose: 0.5 mg Documented by: PRETTY Ceftriaxone Sodium 1 gm/ (Sodium Chloride) 50 mls @ 100 mls/hr IV Q24H [facility] Last Infusion: 11/02/21 22:12 Dose: 0 mls/hr Documented by: FERNANDO Sodium Chloride (Ns) 1,000 mls @ 150 mls/hr IVCONT .Q6H40M [facility] Last Admin: 11/03/21 10:09 Dose: Not Given Documented by: GOKUL Non-Admin Reason: IV Running Latanoprost (Latanoprost 0.005 % Ophth Shilpa 2.5 Ml Drops) 1 drop EYE-BOTH BEDTIME [facility] Last Admin: 11/02/21 21:36 Dose: Not Given Documented by: FERNANDO Non-Admin Reason: Med Not Available Melatonin (Melatonin 3 Mg Tablet) 6 mg PO BEDTIME PRN PRN Reason: Insomnia Omeprazole (Omeprazole 20 Mg Capsule.) 20 mg PO DAILY [facility] Last Admin: 11/03/21 09:55 Dose: 20 mg Documented by: GOKUL Pharmacy Consult (Consult Rx Perform Med Rec) 1 each MISCELLANE ONCE PRN PRN Reason: Consult order Potassium Chloride (Potassium Chloride Er 10 Meq Capsule.Er) 10 meq PO DAILY [facility] Last Admin: 11/03/21 09:55 Dose: 10 meq Documented by: GOKUL Senna (Sennosides 8.6 Mg Tablet) 17.2 mg PO BEDTIME PRN PRN Reason: Constipation Sodium Chloride (0.9 % Sodium Chloride Flush 3 Ml Syringe) 3 ml IVFLUSH QSHIFT [facility] Last Admin: 11/03/21 07:33 Dose: Not Given Documented by: GOKUL Non-Admin Reason: IV Running Labs CBC & Chem 7: 11/03/21 06:37 11/03/21 06:37 Labs: Laboratory Results - last 24 hr 11/02/21 11/02/21 11/03/21 23:35 23:35 06:37 MCV 89.9 MCH 28.5 MCHC 31.7 RDW 14.8 Plt Count 154 L MPV 10.7 Absolute Nucleated RBC 0.000 Nucleated RBC % (auto) 0.0 Anion Gap Estim Creat Clear Calc Estimated GFR Random Glucose Calcium Iron TIBC % Saturation Unsat Iron Binding Total Bilirubin Direct Bilirubin AST ALT Alkaline Phosphatase Total Protein Albumin Urine Color YELLOW Urine Appearance HAZY Urine pH 6.0 Ur Specific [place] 1.015 Urine Protein 2+ H Urine Glucose (UA) NEG Urine Ketones NEG Urine Blood 3+ H Urine Nitrite NEG Ur Leukocyte Esterase 3+ H Urine RBC 15-29 H Urine WBC 30-49 H Ur Squamous Epith Cells 1+ Urine Bacteria 2+ Urine Mucus 2+ Ur Random Sodium 46.0 Urine Creatinine 54.70 11/03/21 11/03/21 06:37 06:37 MCV MCH MCHC RDW Plt Count MPV Absolute Nucleated RBC Nucleated RBC % (auto) Anion Gap 10 L Estim Creat Clear Calc 27.8 Estimated GFR 33 Random Glucose 89 Calcium 7.9 L Iron 19 L TIBC 133 L % Saturation 14 L Unsat Iron Binding 114 Total Bilirubin 1.8 H Direct Bilirubin 1.3 H AST 28 D ALT 42 H Alkaline Phosphatase 167 H D Total Protein 4.8 L Albumin 2.3 L Urine Color Urine Appearance Urine pH Ur Specific [place] Urine Protein Urine Glucose (UA) Urine Ketones Urine Blood Urine Nitrite Ur Leukocyte Esterase Urine RBC Urine WBC Ur Squamous Epith Cells Urine Bacteria Urine Mucus Ur Random Sodium Urine Creatinine Microbiology Microbiology Results: Microbiology 10/31/21 Unknown Urine Culture - Final Urine Catheterized - Richter Catheter Escherichia coli 10/31/21 22:05 Blood Culture - Preliminary Blood - Venous No growth after 48 hours. 10/31/21 21:59 Blood Culture - Preliminary Blood - Venous No growth after 48 hours. 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 Noted to have UTI/from hydronephrosis.? Admitted for further management.? UTI/pyelonephritis/hydronephrosis: Urine culture showing E.coli, sensitive to Ceftriaxone -continue Ceftriaxone for now and at DC change to Ceftin UGO on CKD: Patient baseline creatinine around 1.1-1.3.? Creatine is better, but not yet at baseline, needs more IVF Lactic acidosis:? Resolved with IV fluids. Constipation: Bowel regimen Ampullary lesion:? On CT scan incidentally noted to have mild intrahepatic duct dilatation with common duct prominence to the pancreas question lesion at the ampulla.? MRCP no mas , no stone, Pulmonary nodule:? Outpatient follow-up with PCP for surveillance CT scans. History of hypertension:? Hold home antihypertensives for now given sepsis.? History of depression: Continue home med has been Urology to see for hyodronephrosis DVT prophylaxis:? Subcu heparin Code status:? Full code Inaptient need for UGO that still needs IVF, UTI needing IV abx, Quality Stroke Does the patient have a stroke diagnosis?: No VTE Prior VTE?: No VTE Risk Level:: Medical - moderate - high VTE Device Contraindication: Treatment Not Indicated VTE Drug Contraindication: N/A - Med Ordered
[2021-11-03 11:42] VITALS: BP 113/50; PULSE 60; RESP 20; TEMP 37.1; O2SAT 98
--- NOTE | 2021-11-03 15:02 | PM.PNNEP ---
Subjective Subjective Date of Service: 11/03/21 Interval history: f/u on UTI Chart Reviewed. Events noted. Physical Exam Vital Signs: Vital Signs: Last Vital Signs Temp 99.4 F 11/03/21 19:52 Pulse 65 11/03/21 19:52 Resp 16 11/03/21 19:52 BP 119/63 11/03/21 19:52 Pulse Ox 95 11/03/21 19:52 BMI result Body Mass Index 28.1 Const: General: no acute distress HEENT: Head: Yes normocephalic and Yes atraumatic Neck: Neck: Yes no JVD Resp: Auscultation: clear to auscultation bilaterally Cardio: Jugular venous distension: no JVD Rate: regular rate Rhythm: regular rhythm Heart sounds: S1 normal heart sound present and S2 normal heart sound present GI: Auscultation: normal bowel sounds Neuro: General: no focal motor deficits Extrem: General: Yes amputation noted Objective Data Labs CBC & Chem 7: 11/03/21 06:37 11/03/21 06:37 Labs: Laboratory Results - last 24 hr 11/02/21 11/02/21 11/03/21 23:35 23:35 06:37 WBC 5.2 RBC 2.98 L Hgb 8.5 L Hct 26.8 L MCV 89.9 MCH 28.5 MCHC 31.7 RDW 14.8 Plt Count 154 L MPV 10.7 Absolute Nucleated RBC 0.000 Nucleated RBC % (auto) 0.0 Sodium Potassium Chloride Carbon Dioxide Anion Gap BUN Creatinine Estim Creat Clear Calc Estimated GFR Random Glucose Calcium Iron TIBC % Saturation Unsat Iron Binding Total Bilirubin Direct Bilirubin AST ALT Alkaline Phosphatase Total Protein Albumin Urine Color YELLOW Urine Appearance HAZY Urine pH 6.0 Ur Specific [place] 1.015 Urine Protein 2+ H Urine Glucose (UA) NEG Urine Ketones NEG Urine Blood 3+ H Urine Nitrite NEG Ur Leukocyte Esterase 3+ H Urine RBC 15-29 H Urine WBC 30-49 H Ur Squamous Epith Cells 1+ Urine Bacteria 2+ Urine Mucus 2+ Ur Random Sodium 46.0 Urine Creatinine 54.70 11/03/21 11/03/21 06:37 06:37 WBC RBC Hgb Hct MCV MCH MCHC RDW Plt Count MPV Absolute Nucleated RBC Nucleated RBC % (auto) Sodium 142 Potassium 3.7 Chloride 118 H Carbon Dioxide 18 L Anion Gap 10 L BUN 33 H Creatinine 1.95 H Estim Creat Clear Calc 27.8 Estimated GFR 33 Random Glucose 89 Calcium 7.9 L Iron 19 L TIBC 133 L % Saturation 14 L Unsat Iron Binding 114 Total Bilirubin 1.8 H Direct Bilirubin 1.3 H AST 28 D ALT 42 H Alkaline Phosphatase 167 H D Total Protein 4.8 L Albumin 2.3 L Urine Color Urine Appearance Urine pH Ur Specific [place] Urine Protein Urine Glucose (UA) Urine Ketones Urine Blood Urine Nitrite Ur Leukocyte Esterase Urine RBC Urine WBC Ur Squamous Epith Cells Urine Bacteria Urine Mucus Ur Random Sodium Urine Creatinine Microbiology Microbiology Results: Microbiology 10/31/21 Unknown Urine Catheterized - Richter Catheter Urine Culture - Final Escherichia coli 10/31/21 22:05 Blood - Venous Blood Culture - Preliminary No growth after 48 hours. 10/31/21 21:59 Blood - Venous Blood Culture - Preliminary No growth after 48 hours. Procedures Date of Service Date of Service: 11/03/21 Assessment & Plan Assessment and plan (1) UGO (acute kidney injury): Status: Acute Plan #) UGO, Non-oliguric The patient presented with noted UGO with prior known BL S-Cr ~ 1.1-1.3 mg/dL. He was noted to have b/l hydronephrosis per CT imaging with concerns for pyelonephritis. He has received IVF s and was started on appropriate abx for GNR's. S-Cr improving but not yet at BL No nsaid use prior to presentation, not on acei/arb, and thus far no contrast exposure for imaging/diagnostics. Suggest: Agree with supportive care with ivf's and electrolyte correction and trend S-Cr. #) CKD - Anemia: Suggest 250 mg IV iron x 1 to support renal recovery. 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 Time Spent With Patient Time: Total time spent is greater than 50% in coordination of care (as documented) at patient's floor/unit and/or counseling patient: Progress Note: Quality Stroke Does the patient have a stroke diagnosis?: No
[2021-11-03 15:19] VITALS: BP 109/50; PULSE 65; RESP 14; TEMP 37.3; O2SAT 96
[2021-11-03 19:52] VITALS: BP 119/63; PULSE 65; RESP 16; TEMP 37.4; O2SAT 95
[2021-11-03] MEDS: Ferrous Sulfate 324 MG TABLET.DR PO (20:28)
[2021-11-03] MEDS: Donepezil HCl 5 MG TABLET PO (20:29)
[2021-11-03] MEDS: Doxazosin Mesylate 2 MG TABLET 4 MG PO (20:29)
[2021-11-03] MEDS: Latanoprost 0.005 % Ophth Sol 2.5 ML DROPS 1 DROP EYE-BOTH (20:33)
[2021-11-03] MEDS: Brimonidine Tartrate 0.2% Oph 5 ML BOTTLE 1 DROP EYE-BOTH (20:34)
[2021-11-03] MEDS: cefTRIAXone sodium 1 GM in 0.9 % Sodium Chloride 50 ML IV (21:50)
[2021-11-03] MEDS: 0.9 % Sodium Chloride Flush 3 ML SYRINGE IVFLUSH (21:52)
[2021-11-03 23:47] VITALS: BP 105/48; PULSE 56; RESP 18; TEMP 36.9; O2SAT 98
[2021-11-04] MEDS: Heparin Sodium,Porcine 5,000 UNIT/ML VIAL 5000 UNIT SUBCUT ×4 (00:41→21:21)
[2021-11-04 04:00] VITALS: BP 108/50; PULSE 60; RESP 18; TEMP 37.2; O2SAT 96
[2021-11-04 07:46] LABS: Alanine Aminotransferase 38 U/L (0-40); Albumin Level 2.4 g/dL (3.5-5.0); Alkaline Phosphatase 196 U/L (39-117); Anion Gap 9 (12-20); Aspartate Amino Transferase 20 U/L (5-37); Bilirubin Direct 1.1 mg/dL (0.0-0.5); Bilirubin Total 1.6 mg/dL (0.0-1.0); Blood Urea Nitrogen 29 mg/dL (9-16); Calcium 8.2 mg/dL (8.4-10.2); Carbon Dioxide 19 mmol/L (22-29); Chloride 119 mmol/L (96-108); Creatinine Clr Calc Pharmacy 32.6; Estimated Glomerular Filt Rate 39; Glucose Random 84 mg/dL (60-115); Potassium 3.7 mmol/L (3.3-5.1); Sodium 143 mmol/L (135-145); Total Protein 4.8 g/dL (6.5-8.0)
[2021-11-04 08:00] VITALS: BP 131/64; PULSE 66; RESP 24; TEMP 37.4; O2SAT 96
[2021-11-04] MEDS: Omeprazole 20 MG CAPSULE.DR PO (09:02)
[2021-11-04] MEDS: Finasteride 5 MG TABLET PO (09:02)
[2021-11-04] MEDS: 0.9 % Sodium Chloride Flush 3 ML SYRINGE IVFLUSH ×3 (09:02→21:21)
[2021-11-04] MEDS: Acetaminophen 325 MG TABLET PO ×2 (09:02→21:19)
[2021-11-04] MEDS: Cyanocobalamin (Vitamin B-12) 1,000 MCG TABLET 1000 MCG PO (09:03)
[2021-11-04] MEDS: Brimonidine Tartrate 0.2% Oph 5 ML BOTTLE 1 DROP EYE-BOTH ×2 (09:03→21:21)
[2021-11-04] MEDS: Ascorbic Acid 500 MG TABLET PO ×2 (09:03→21:20)
[2021-11-04] MEDS: Clopidogrel Bisulfate 75 MG TABLET PO (09:03)
--- NOTE | 2021-11-04 10:02 | HO.PM.IMPN ---
Subjective Subjective Date of Service: 11/04/21 Interval History: f/u on UTI he reports feeling good today Review of Systems no fever or chils, no dysuura, no abdominal pain Physical Exam Vital Signs: Vital Signs: Last Vital Signs Temp 99.4 F 11/04/21 08:00 Pulse 66 11/04/21 08:00 Resp 24 H 11/04/21 08:00 BP 131/64 11/04/21 08:00 Pulse Ox 96 11/04/21 08:00 BMI result Body Mass Index 28.1 Const: Other: General: AO X 3, no acute distress Resp: CTA bilateral CVS: S1,S2,RRR GI: +BS, NT, no distention Skin: No rash ex siena bka Neuro: motor grossly intact Psych: appropriate affect Objective Data Active Medications Acetaminophen (Acetaminophen 325 Mg Tablet) 650 mg PO Q6H PRN PRN Reason: Pain, Mild (Pain Scale 1-3) Last Admin: 11/02/21 02:30 Dose: 650 mg Documented by: NAFISA Acetaminophen (Acetaminophen 325 Mg Tablet) 325 mg PO BID [facility] Last Admin: 11/04/21 09:02 Dose: 325 mg Documented by: COTEMA Ascorbic Acid (Ascorbic Acid 500 Mg Tablet) 500 mg PO BID [facility] Last Admin: 11/04/21 09:03 Dose: 500 mg Documented by: COTEMA Brimonidine Tartrate (Brimonidine Tartrate 0.2% Oph 5 Ml Bottle) 1 drop EYE-BOTH BID [facility] Last Admin: 11/04/21 09:03 Dose: 1 drop Documented by: COTEMA Clopidogrel Bisulfate (Clopidogrel Bisulfate 75 Mg Tablet) 75 mg PO DAILY [facility] Last Admin: 11/04/21 09:03 Dose: 75 mg Documented by: COTEMA Cyanocobalamin (Cyanocobalamin (Vitamin B-12) 1,000 Mcg Tablet) 1,000 mcg PO DAILY [facility] Last Admin: 11/04/21 09:03 Dose: 1,000 mcg Documented by: COTEMA Donepezil HCl (Donepezil Hcl 5 Mg Tablet) 5 mg PO BEDTIME [facility] Last Admin: 11/03/21 20:29 Dose: 5 mg Documented by: GENARO Doxazosin Mesylate (Doxazosin Mesylate 2 Mg Tablet) 4 mg PO BEDTIME [facility]; Protocol Last Admin: 11/03/21 20:29 Dose: 4 mg Documented by: BROOKE Ferrous Sulfate (Ferrous Sulfate 324 Mg Tablet.) 324 mg PO BEDTIME [facility] Last Admin: 11/03/21 20:28 Dose: 324 mg Documented by: BROOKE Finasteride (Finasteride 5 Mg Tablet) 5 mg PO DAILY [facility] Last Admin: 11/04/21 09:02 Dose: 5 mg Documented by: GOKUL Heparin Sodium (Porcine) (Heparin Sodium,Porcine 5,000 Unit/Ml Vial) 5,000 unit SUBCUT Q8H [facility] Last Admin: 11/04/21 09:01 Dose: 5,000 unit Documented by: GOKUL Hydromorphone HCl (Hydromorphone Hcl 0.5 Mg/0.5 Ml Syringe) 0.5 mg IVPUSH Q4H PRN; Protocol PRN Reason: Breakthrough Pain Last Admin: 11/01/21 13:18 Dose: 0.5 mg Documented by: PRETTY Ceftriaxone Sodium 1 gm/ (Sodium Chloride) 50 mls @ 100 mls/hr IV Q24H [facility] Last Infusion: 11/03/21 22:42 Dose: 0 mls/hr Documented by: BROOKE Latanoprost (Latanoprost 0.005 % Ophth Shilpa 2.5 Ml Drops) 1 drop EYE-BOTH BEDTIME [facility] Last Admin: 11/03/21 20:33 Dose: 1 drop Documented by: BROOKE Melatonin (Melatonin 3 Mg Tablet) 6 mg PO BEDTIME PRN PRN Reason: Insomnia Omeprazole (Omeprazole 20 Mg Capsule.) 20 mg PO DAILY [facility] Last Admin: 11/04/21 09:02 Dose: 20 mg Documented by: GOKUL Pharmacy Consult (Consult Rx Perform Med Rec) 1 each MISCELLANE ONCE PRN PRN Reason: Consult order Potassium Chloride (Potassium Chloride Er 10 Meq Capsule.Er) 10 meq PO DAILY [facility] Last Admin: 11/04/21 09:02 Dose: 10 meq Documented by: GOKUL Senna (Sennosides 8.6 Mg Tablet) 17.2 mg PO BEDTIME PRN PRN Reason: Constipation Sodium Chloride (0.9 % Sodium Chloride Flush 3 Ml Syringe) 3 ml IVFLUSH QSHIFT [facility] Last Admin: 11/04/21 09:02 Dose: 3 ml Documented by: COTEMA Labs CBC & Chem 7: 11/03/21 06:37 11/04/21 06:55 Labs: Laboratory Results - last 24 hr 11/04/21 06:55 Anion Gap 9 L Estim Creat Clear Calc 32.6 Estimated GFR 39 Random Glucose 84 Calcium 8.2 L Total Bilirubin 1.6 H Direct Bilirubin 1.1 H AST 20 ALT 38 Alkaline Phosphatase 196 H Total Protein 4.8 L Albumin 2.4 L Microbiology Microbiology Results: Microbiology 10/31/21 Unknown Urine Culture - Final Urine Catheterized - Richter Catheter Escherichia coli Assessment and Plan (1) Acute UTI: Status: Acute (2) UGO (acute kidney injury): Status: Acute (3) Bilateral hydronephrosis: Status: Acute Plan 72-year-old male with a past medical history of hypertension, 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 Noted to have UTI/from hydronephrosis.? Admitted for further management.? UTI/pyelonephritis/hydronephrosis: Urine culture showing E.coli, sensitive to Ceftriaxone -continue Ceftriaxone for now and at DC change to Ceftin UGO on CKD: Patient baseline creatinine around 1.1-1.3.? Creatine is better, but not yet at baseline, needs more IVF and repeat lab tomorrow Lactic acidosis:? Resolved with IV fluids. Constipation: Bowel regimen Ampullary lesion:? On CT scan incidentally noted to have mild intrahepatic duct dilatation with common duct prominence to the pancreas question lesion at the ampulla.? MRCP no mas , no stone, Pulmonary nodule:? Outpatient follow-up with PCP for surveillance CT scans. History of hypertension:? Hold home antihypertensives for now given sepsis.? History of depression: Continue home med has been Urology to see for hyodronephrosis DVT prophylaxis:? Subcu heparin Code status:? Full code Inaptient need for UGO that still needs IVF, UTI needing IV abx, Quality Stroke Does the patient have a stroke diagnosis?: No VTE Prior VTE?: No VTE Risk Level:: Medical - moderate - high VTE Device Contraindication: Treatment Not Indicated VTE Drug Contraindication: N/A - Med Ordered
[2021-11-04 11:15] VITALS: BP 101/52; PULSE 61; RESP 12; TEMP 37.5; O2SAT 97
--- NOTE | 2021-11-04 11:41 | MHC.CM.PN ---
Met with patient to discuss D/C planning following CIRCULATION TENDER's visit indicative of impending D/C: he is requesting referrals to [facility], [facility], [facility]. No PT Eval completed at this time. Referrals placed w/documents available. Notified that per patient's and 's request ( in same room), they go as a 2-for-1 deal as [facility] is recommended for both. Pending referral responses.
--- NOTE | 2021-11-04 14:19 | MHC.CM.PN ---
[facility] both interested in patient. [facility] is first choice. [facility] has also already accepted his and is waiting on completed information from [facility] [facility] in order to finalize their assessment and decision for him; they understand that patient and are a package deal. Barriers to D/C for patient: no PT MD yumiko aware and has agreed to order. Needs updated KILLIAN yarbrough MD aware and has agreed to order. These are the two things both [facility] and [facility] are waiting on. If [facility] gets them and offers, then both and (at this time), want to go there. CM to follow.
--- NOTE | 2021-11-04 14:43 | MHC.CM.PN ---
Met w/patient and and updated them on his need for PT eval for bed offer consideration, as well as the need for updated COVID testing. Also updated them on bed search status. CM to status.
[2021-11-04 15:18] VITALS: BP 108/53; PULSE 64; RESP 18; TEMP 36.6; O2SAT 95
[2021-11-04 16:40] LABS: COVID-19 Test Positive (Negative); IDNOW Serial# 16C4AD1C
[2021-11-04] MEDS: Sodium Chloride 0.65 % Nasal 44 ML SPRBTL 1 SPRAY NOSTRIL-B (16:59)
[2021-11-04 20:00] VITALS: BP 111/64; PULSE 62; RESP 16; TEMP 37; O2SAT 95
--- NOTE | 2021-11-04 21:13 | PM.GIPN ---
Subjective Subjective Date of Service: 11/04/21 Interval History: Patient seen this afternoon. He feels better in general. He denies any abdominal pain. Eating comfortably. Critical Care Time (minutes): 0 Physical Exam Vital Signs: Vital Signs: Last Vital Signs Temp 98.6 F 11/04/21 20:00 Pulse 62 11/04/21 20:00 Resp 16 11/04/21 20:00 BP 111/64 11/04/21 20:00 Pulse Ox 95 11/04/21 20:00 BMI result Body Mass Index 28.1 Const: General: cooperative, healthy appearing, comfortable, no acute distress, well developed, alert and awake Eyes: Other: Anicteric GI: Other: Abd-soft, NT, +BS, no mass Objective Data Labs CBC & Chem 7: 11/03/21 06:37 11/04/21 06:55 Labs: Laboratory Results - last 24 hr 11/04/21 11/04/21 06:55 16:18 Sodium 143 Potassium 3.7 Chloride 119 H Carbon Dioxide 19 L Anion Gap 9 L BUN 29 H Creatinine 1.66 H Estim Creat Clear Calc 32.6 Estimated GFR 39 Random Glucose 84 Calcium 8.2 L Total Bilirubin 1.6 H Direct Bilirubin 1.1 H AST 20 ALT 38 Alkaline Phosphatase 196 H Total Protein 4.8 L Albumin 2.4 L COVID-19 (RA) Positive A COVID-19 Clin Com See Note Imaging MRI - abdomen: Radiologist's impression: MRCP was negative for sign of biliary obstruction such as a stricture, mass, nor stone. The CBD was slightly dilated. Microbiology Microbiology Results: Microbiology 10/31/21 Unknown Urine Catheterized - Richter Catheter Urine Culture - Final Escherichia coli 10/31/21 22:05 Blood - Venous Blood Culture - Preliminary No growth after 48 hours. 10/31/21 21:59 Blood - Venous Blood Culture - Preliminary No growth after 48 hours. Procedures Date of Service Date of Service: 11/04/21 Progress Note: A&P Assessment and plan (1) Elevated liver function tests: Status: Acute (2) Abnormal computerized tomography of biliary tract: Status: Acute Assessment and Plan: Imp: He presently appears very comfortable and has no GI complaints. His LFT's continue to improve and the MRCP does not show any specific abnormalities. I suspect the elevated LFT's were due to his presentation with his urinary infection and are now improving as the process is improving. Rec: I don't think he requires an ERCP at this point given his improvement and what I feel would be a low yield procedure. Given his age and medical issues it would be best to avoid invasive procedures and anesthesia unless absolutely needed. I advised the patient, and his , of this and told him to have periodic LFT's with his PCP after discharge. He can be referred back to me by his PCP if need be. He and his were very comfortable with this plan. Thanks. Time Spent With Patient Time: Total time spent is greater than 50% in coordination of care (as documented) at patient's floor/unit and/or counseling patient: Quality Stroke Does the patient have a stroke diagnosis?: No VTE Prior VTE?: No VTE Risk Level:: Medical - moderate - high VTE Device Contraindication: Treatment Not Indicated VTE Drug Contraindication: N/A - Med Ordered
[2021-11-04] MEDS: Doxazosin Mesylate 2 MG TABLET 4 MG PO (21:19)
[2021-11-04] MEDS: Donepezil HCl 5 MG TABLET PO (21:19)
[2021-11-04] MEDS: Latanoprost 0.005 % Ophth Sol 2.5 ML DROPS 1 DROP EYE-BOTH (21:21)
[2021-11-04] MEDS: cefTRIAXone sodium 1 GM in 0.9 % Sodium Chloride 50 ML IV (21:21)
[2021-11-04] MEDS: Ferrous Sulfate 324 MG TABLET.DR PO (21:21)
--- NOTE | 2021-11-04 21:56 | PM.PNNEP ---
Subjective Subjective Date of Service: 11/04/21 Interval history: Chart Reviewed. Events noted. Patient feeling better. Appetite ok. Physical Exam Vital Signs: Vital Signs: Last Vital Signs Temp 98.6 F 11/04/21 20:00 Pulse 62 11/04/21 20:00 Resp 16 11/04/21 20:00 BP 111/64 11/04/21 20:00 Pulse Ox 95 11/04/21 20:00 BMI result Body Mass Index 28.1 Const: General: cooperative and no acute distress Orientation/consciousness: patient oriented x3 HEENT: Head: Yes normocephalic and Yes atraumatic Neck: Neck: Yes no JVD Resp: Auscultation: clear to auscultation bilaterally Cardio: Jugular venous distension: no JVD Rate: regular rate Rhythm: regular rhythm Heart sounds: S1 normal heart sound present and S2 normal heart sound present GI: Auscultation: normal bowel sounds Neuro: General: patient oriented x3 Extrem: Other: b/l LE amputation(s) Objective Data Labs CBC & Chem 7: 11/03/21 06:37 11/04/21 06:55 Labs: Laboratory Results - last 24 hr 11/04/21 11/04/21 06:55 16:18 Sodium 143 Potassium 3.7 Chloride 119 H Carbon Dioxide 19 L Anion Gap 9 L BUN 29 H Creatinine 1.66 H Estim Creat Clear Calc 32.6 Estimated GFR 39 Random Glucose 84 Calcium 8.2 L Total Bilirubin 1.6 H Direct Bilirubin 1.1 H AST 20 ALT 38 Alkaline Phosphatase 196 H Total Protein 4.8 L Albumin 2.4 L COVID-19 (RA) Positive A COVID-19 Clin Com See Note Microbiology Microbiology Results: Microbiology 10/31/21 Unknown Urine Catheterized - Richter Catheter Urine Culture - Final Escherichia coli 10/31/21 22:05 Blood - Venous Blood Culture - Preliminary No growth after 48 hours. 10/31/21 21:59 Blood - Venous Blood Culture - Preliminary No growth after 48 hours. Procedures Date of Service Date of Service: 11/04/21 Assessment & Plan Assessment and plan (1) UGO (acute kidney injury): Status: Acute (2) Bilateral hydronephrosis: Status: Acute Plan Plan #) UGO, Non-oliguric The patient presented with noted UGO with prior known BL S-Cr ~ 1.1-1.3 mg/dL. He was noted to have b/l hydronephrosis per CT imaging with concerns for pyelonephritis. He has received IVF s and was started on appropriate abx for GNR's. S-Cr improving but not yet at BL No nsaid use prior to presentation, not on acei/arb, and thus far no contrast exposure for imaging/diagnostics. FWD noted. Suggest: Agree with supportive care with ivf's and electrolyte correction and trend S-Cr. #) CKD - Anemia: Suggest 250 mg IV iron x 1 to support renal recovery. 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 Time Spent With Patient Time: Total time spent is greater than 50% in coordination of care (as documented) at patient's floor/unit and/or counseling patient: Progress Note: Quality Stroke Does the patient have a stroke diagnosis?: No
[2021-11-04 23:50] VITALS: BP 106/54; PULSE 58; RESP 18; TEMP 36.7; O2SAT 96
[2021-11-05 03:40] VITALS: BP 124/59; PULSE 61; RESP 18; TEMP 36.4; O2SAT 97
[2021-11-05 06:31] LABS: Alanine Aminotransferase 33 U/L (0-40); Albumin Level 2.4 g/dL (3.5-5.0); Alkaline Phosphatase 225 U/L (39-117); Aspartate Amino Transferase 20 U/L (5-37); Bilirubin Direct 0.7 mg/dL (0.0-0.5); Total Protein 4.8 g/dL (6.5-8.0)
[2021-11-05 07:26] VITALS: BP 121/65; PULSE 75; RESP 20; TEMP 36.8; O2SAT 96
[2021-11-05] MEDS: Ascorbic Acid 500 MG TABLET PO ×2 (09:11→20:11)
[2021-11-05] MEDS: Omeprazole 20 MG CAPSULE.DR PO (09:11)
[2021-11-05] MEDS: 0.9 % Sodium Chloride Flush 3 ML SYRINGE IVFLUSH ×3 (09:11→20:14)
[2021-11-05] MEDS: Heparin Sodium,Porcine 5,000 UNIT/ML VIAL 5000 UNIT SUBCUT ×2 (09:11→17:05)
[2021-11-05] MEDS: Clopidogrel Bisulfate 75 MG TABLET PO (09:11)
[2021-11-05] MEDS: Finasteride 5 MG TABLET PO (09:11)
[2021-11-05] MEDS: Brimonidine Tartrate 0.2% Oph 5 ML BOTTLE 1 DROP EYE-BOTH ×2 (09:12→20:14)
[2021-11-05] MEDS: Cyanocobalamin (Vitamin B-12) 1,000 MCG TABLET 1000 MCG PO (09:12)
[2021-11-05] MEDS: Acetaminophen 325 MG TABLET PO ×2 (09:12→20:12)
--- NOTE | 2021-11-05 10:16 | HO.PM.IMPN ---
Subjective Subjective Date of Service: 11/05/21 Interval History: f/u on UTI, UGO, hydronephrosis Interval history: feels better, screening +for covid No shortness of breath Review of Systems no fever or chils, no dysuura, no abdominal pain Physical Exam Vital Signs: Vital Signs: Last Vital Signs Temp 98.3 F 11/05/21 07:26 Pulse 75 11/05/21 07:26 Resp 20 11/05/21 07:26 BP 121/65 11/05/21 07:26 Pulse Ox 96 11/05/21 07:26 BMI result Body Mass Index 28.1 Const: Other: General: AO X 3, no acute distress Resp: CTA bilateral CVS: S1,S2,RRR GI: +BS, NT, no distention Skin: No rash ex siena bka Neuro: motor grossly intact Psych: appropriate affect Objective Data Active Medications Acetaminophen (Acetaminophen 325 Mg Tablet) 650 mg PO Q6H PRN PRN Reason: Pain, Mild (Pain Scale 1-3) Last Admin: 11/02/21 02:30 Dose: 650 mg Documented by: NAFISA Acetaminophen (Acetaminophen 325 Mg Tablet) 325 mg PO BID [facility] Last Admin: 11/05/21 09:12 Dose: 325 mg Documented by: JAZZY Ascorbic Acid (Ascorbic Acid 500 Mg Tablet) 500 mg PO BID [facility] Last Admin: 11/05/21 09:11 Dose: 500 mg Documented by: JAZZY Brimonidine Tartrate (Brimonidine Tartrate 0.2% Oph 5 Ml Bottle) 1 drop EYE-BOTH BID [facility] Last Admin: 11/05/21 09:12 Dose: 1 drop Documented by: JAZZY Clopidogrel Bisulfate (Clopidogrel Bisulfate 75 Mg Tablet) 75 mg PO DAILY [facility] Last Admin: 11/05/21 09:11 Dose: 75 mg Documented by: JAZZY Cyanocobalamin (Cyanocobalamin (Vitamin B-12) 1,000 Mcg Tablet) 1,000 mcg PO DAILY [facility] Last Admin: 11/05/21 09:12 Dose: 1,000 mcg Documented by: JAZZY Donepezil HCl (Donepezil Hcl 5 Mg Tablet) 5 mg PO BEDTIME [facility] Last Admin: 11/04/21 21:19 Dose: 5 mg Documented by: GARETT Doxazosin Mesylate (Doxazosin Mesylate 2 Mg Tablet) 4 mg PO BEDTIME [facility]; Protocol Last Admin: 11/04/21 21:19 Dose: 4 mg Documented by: GARETT Ferrous Sulfate (Ferrous Sulfate 324 Mg Tablet.) 324 mg PO BEDTIME [facility] Last Admin: 11/04/21 21:21 Dose: 324 mg Documented by: GARETT Finasteride (Finasteride 5 Mg Tablet) 5 mg PO DAILY [facility] Last Admin: 11/05/21 09:11 Dose: 5 mg Documented by: JAZZY Heparin Sodium (Porcine) (Heparin Sodium,Porcine 5,000 Unit/Ml Vial) 5,000 unit SUBCUT Q8H [facility] Last Admin: 11/05/21 09:11 Dose: 5,000 unit Documented by: JAZZY Hydromorphone HCl (Hydromorphone Hcl 0.5 Mg/0.5 Ml Syringe) 0.5 mg IVPUSH Q4H PRN; Protocol PRN Reason: Breakthrough Pain Last Admin: 11/01/21 13:18 Dose: 0.5 mg Documented by: PRETTY Ceftriaxone Sodium 1 gm/ (Sodium Chloride) 50 mls @ 100 mls/hr IV Q24H [facility] Last Infusion: 11/04/21 22:26 Dose: 0 mls/hr Documented by: GARETT Latanoprost (Latanoprost 0.005 % Ophth Shilpa 2.5 Ml Drops) 1 drop EYE-BOTH BEDTIME [facility] Last Admin: 11/04/21 21:21 Dose: 1 drop Documented by: GARETT Melatonin (Melatonin 3 Mg Tablet) 6 mg PO BEDTIME PRN PRN Reason: Insomnia Omeprazole (Omeprazole 20 Mg Capsule.) 20 mg PO DAILY [facility] Last Admin: 11/05/21 09:11 Dose: 20 mg Documented by: JAZZY Pharmacy Consult (Consult Rx Perform Med Rec) 1 each MISCELLANE ONCE PRN PRN Reason: Consult order Potassium Chloride (Potassium Chloride Er 10 Meq Capsule.Er) 10 meq PO DAILY [facility] Last Admin: 11/05/21 09:11 Dose: 10 meq Documented by: JAZZY Senna (Sennosides 8.6 Mg Tablet) 17.2 mg PO BEDTIME PRN PRN Reason: Constipation Sodium Chloride (0.9 % Sodium Chloride Flush 3 Ml Syringe) 3 ml IVFLUSH QSHIFT [facility] Last Admin: 11/05/21 09:11 Dose: 3 ml Documented by: JAZZY Sodium Chloride (Sodium Chloride 0.65 % Nasal 44 Ml Sprbtl) 1 spray NOSTRIL-B Q1H PRN PRN Reason: Dryness Last Admin: 11/04/21 16:59 Dose: 1 spray Documented by: COTEMA Labs CBC & Chem 7: 11/03/21 06:37 11/04/21 06:55 Labs: Laboratory Results - last 24 hr 11/04/21 11/05/21 16:18 05:54 Total Bilirubin 1.0 Direct Bilirubin 0.7 H AST 20 ALT 33 Alkaline Phosphatase 225 H Total Protein 4.8 L Albumin 2.4 L COVID-19 (RA) Positive A COVID-19 Clin Com See Note Assessment and Plan (1) Abnormal computerized tomography of biliary tract: Status: Acute (2) Elevated liver function tests: Status: Acute (3) Acute UTI: Status: Acute (4) UGO (acute kidney injury): Status: Acute Plan 72-year-old male with a past medical history of hypertension, 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 Noted to have UTI/from hydronephrosis.? Admitted for further management.? UTI/pyelonephritis/hydronephrosis: Urine culture showing E.coli, sensitive to Ceftriaxone -continue Ceftriaxone for now and at DC change to Ceftin UGO on CKD, Hydronephrosis, Patient baseline creatinine around 1.1-1.3.? Creatine is better, but not yet at baseline, repeat BMP today, awaiting urology consult Lactic acidosis:? Resolved with IV fluids. Constipation: Bowel regimen Ampullary lesion:? On CT scan incidentally noted to have mild intrahepatic duct dilatation with common duct prominence to the pancreas question lesion at the ampulla.? MRCP no mas , no stone. Seen by GI and no indication for ERCP, LFTs continue to trend down Pulmonary nodule:? Outpatient follow-up with PCP for surveillance CT scans. History of hypertension:? Hold home antihypertensives for now given sepsis.? History of depression: Continue home med has been Urology to see for hyodronephrosis Covid + (free screenin), Assymptomatic DVT prophylaxis:? Subcu heparin Code status:? Full code Inaptient need for UGO that still needs IVF, UTI needing IV abx,.. Now covid + which complicate disposition to SNF Quality Stroke Does the patient have a stroke diagnosis?: No VTE Prior VTE?: No VTE Risk Level:: Medical - moderate - high VTE Device Contraindication: Treatment Not Indicated VTE Drug Contraindication: N/A - Med Ordered
[2021-11-05 11:41] VITALS: BP 103/57; PULSE 58; RESP 20; TEMP 36.5; O2SAT 97
--- NOTE | 2021-11-05 11:42 | PM.PNNEP ---
Subjective Subjective Date of Service: 11/05/21 Interval history: Feels better. COVID positive. Awaiting Urology Input Physical Exam Vital Signs: Vital Signs: Last Vital Signs Temp 98.3 F 11/05/21 07:26 Pulse 75 11/05/21 07:26 Resp 20 11/05/21 07:26 BP 121/65 11/05/21 07:26 Pulse Ox 96 11/05/21 07:26 BMI result Body Mass Index 28.1 Const: General: no acute distress Orientation/consciousness: patient oriented x3 Eyes: EOM: EOMs intact bilaterally Neck: Neck: Yes supple Resp: Auscultation: diminished lung sounds Cardio: Rate: regular rate GI: Palpation (GI): Soft to palpation Neuro: General: patient oriented x3 Objective Data Labs CBC & Chem 7: 11/03/21 06:37 11/04/21 06:55 Labs: Laboratory Results - last 24 hr 11/04/21 11/05/21 16:18 05:54 Total Bilirubin 1.0 Direct Bilirubin 0.7 H AST 20 ALT 33 Alkaline Phosphatase 225 H Total Protein 4.8 L Albumin 2.4 L COVID-19 (RA) Positive A COVID-19 Clin Com See Note Microbiology Microbiology Results: Microbiology 10/31/21 Unknown Urine Catheterized - Richter Catheter Urine Culture - Final Escherichia coli 10/31/21 22:05 Blood - Venous Blood Culture - Preliminary No growth after 48 hours. 10/31/21 21:59 Blood - Venous Blood Culture - Preliminary No growth after 48 hours. Procedures Date of Service Date of Service: 11/05/21 Assessment & Plan Assessment and plan (1) UGO (acute kidney injury): Status: Acute Assessment and Plan: Acute Kidney Injury due to compromise in renal perfusion + Hydronephrosis Renal functions better. Awaiting Urology input; C/W rest of current management Time Spent With Patient Time: Total time spent is greater than 50% in coordination of care (as documented) at patient's floor/unit and/or counseling patient: Progress Note: Quality Stroke Does the patient have a stroke diagnosis?: No
--- NOTE | 2021-11-05 12:39 | MHC.CM.PN ---
Male 85 DX UTI Covid+ Per MD rounds a consult has been ordered. A bed search is underway for the Pt and his . [facility] has rescinded the bed offer. Info sent to [facility]. ARNOLD will follow.
[2021-11-05 15:27] VITALS: BP 125/66; PULSE 56; RESP 14; TEMP 37; O2SAT 97
[2021-11-05 17:36] LABS: Urea, Random Urine 479 mg/dL
[2021-11-05 20:00] VITALS: BP 105/57; PULSE 58; RESP 17; TEMP 36.8; O2SAT 96
[2021-11-05] MEDS: Doxazosin Mesylate 2 MG TABLET 4 MG PO (20:11)
[2021-11-05] MEDS: Donepezil HCl 5 MG TABLET PO (20:12)
[2021-11-05] MEDS: Ferrous Sulfate 324 MG TABLET.DR PO (20:12)
[2021-11-05] MEDS: Latanoprost 0.005 % Ophth Sol 2.5 ML DROPS 1 DROP EYE-BOTH (20:14)
[2021-11-05] MEDS: cefTRIAXone sodium 1 GM in 0.9 % Sodium Chloride 50 ML IV (22:06)
[2021-11-05 23:50] VITALS: BP 109/59; PULSE 56; RESP 15; TEMP 36.4; O2SAT 94
[2021-11-06] VITALS (7 sets, daily range): BP systolic 110–128; BP diastolic 56–64; PULSE 56–64; RESP 16–18; TEMP 36.3–36.9; O2SAT 95–97
[2021-11-06] MEDS: Heparin Sodium,Porcine 5,000 UNIT/ML VIAL 5000 UNIT SUBCUT ×4 (00:06→23:24)
[2021-11-06 07:42] LABS: Anion Gap 8 (12-20); Blood Urea Nitrogen 21 mg/dL (9-16); Calcium 8.4 mg/dL (8.4-10.2); Carbon Dioxide 21 mmol/L (22-29); Chloride 119 mmol/L (96-108); Creatinine Clr Calc Pharmacy 35.4; Estimated Glomerular Filt Rate 43; Glucose Random 81 mg/dL (60-115); Potassium 4.5 mmol/L (3.3-5.1); Sodium 143 mmol/L (135-145)
[2021-11-06] MEDS: 0.9 % Sodium Chloride Flush 3 ML SYRINGE IVFLUSH ×3 (07:50→20:12)
[2021-11-06] MEDS: Finasteride 5 MG TABLET PO (07:50)
[2021-11-06] MEDS: Omeprazole 20 MG CAPSULE.DR PO (07:51)
[2021-11-06] MEDS: Clopidogrel Bisulfate 75 MG TABLET PO (07:51)
[2021-11-06] MEDS: Cyanocobalamin (Vitamin B-12) 1,000 MCG TABLET 1000 MCG PO (07:52)
[2021-11-06] MEDS: Ascorbic Acid 500 MG TABLET PO (07:52)
[2021-11-06] MEDS: Acetaminophen 325 MG TABLET PO ×2 (07:52→20:07)
[2021-11-06] MEDS: Brimonidine Tartrate 0.2% Oph 5 ML BOTTLE 1 DROP EYE-BOTH ×2 (08:04→20:06)
--- NOTE | 2021-11-06 09:01 | P.PNIM_ITS ---
Subjective Subjective Date of Service: 11/06/21 Interval History: Feels better. COVID positive, no covid symptoms, Cre improving, Awaiting Urology Input Review of Systems no fever or chils, no dysuura, no abdominal pain Physical Exam Vital Signs: Vital Signs: Last Vital Signs Temp 97.7 F 11/06/21 07:51 Pulse 61 11/06/21 07:51 Resp 18 11/06/21 07:51 BP 112/62 11/06/21 07:51 Pulse Ox 96 11/06/21 07:51 BMI result Body Mass Index 28.1 Const: Other: General: AO X 3, no acute distress Resp: CTA bilateral CVS: S1,S2,RRR GI: +BS, NT, no distention Skin: No rash ex siena bka Neuro: motor grossly intact Psych: appropriate affect Objective Data Active Medications Acetaminophen (Acetaminophen 325 Mg Tablet) 650 mg PO Q6H PRN PRN Reason: Pain, Mild (Pain Scale 1-3) Last Admin: 11/02/21 02:30 Dose: 650 mg Documented by: NAFISA Acetaminophen (Acetaminophen 325 Mg Tablet) 325 mg PO BID [facility] Last Admin: 11/06/21 07:52 Dose: 325 mg Documented by: DOMENICA Ascorbic Acid (Ascorbic Acid 500 Mg Tablet) 500 mg PO BID [facility] Last Admin: 11/06/21 07:52 Dose: 500 mg Documented by: DOMENICA Brimonidine Tartrate (Brimonidine Tartrate 0.2% Oph 5 Ml Bottle) 1 drop EYE- BOTH BID [facility] Last Admin: 11/06/21 08:04 Dose: 1 drop Documented by: DOMENICA Clopidogrel Bisulfate (Clopidogrel Bisulfate 75 Mg Tablet) 75 mg PO DAILY [facility] Last Admin: 11/06/21 07:51 Dose: 75 mg Documented by: DOMENICA Cyanocobalamin (Cyanocobalamin (Vitamin B-12) 1,000 Mcg Tablet) 1,000 mcg PO DAILY [facility] Last Admin: 11/06/21 07:52 Dose: 1,000 mcg Documented by: DOMENICA Donepezil HCl (Donepezil Hcl 5 Mg Tablet) 5 mg PO BEDTIME [facility] Last Admin: 11/05/21 20:12 Dose: 5 mg Documented by: CAMPOS Doxazosin Mesylate (Doxazosin Mesylate 2 Mg Tablet) 4 mg PO BEDTIME [facility]; Protocol Last Admin: 11/05/21 20:11 Dose: 4 mg Documented by: CAMPOS Ferrous Sulfate (Ferrous Sulfate 324 Mg Tablet.) 324 mg PO BEDTIME [facility] Last Admin: 11/05/21 20:12 Dose: 324 mg Documented by: CAMPOS Finasteride (Finasteride 5 Mg Tablet) 5 mg PO DAILY [facility] Last Admin: 11/06/21 07:50 Dose: 5 mg Documented by: DOMENICA Heparin Sodium (Porcine) (Heparin Sodium,Porcine 5,000 Unit/Ml Vial) 5,000 unit SUBCUT Q8H [facility] Last Admin: 11/06/21 07:50 Dose: 5,000 unit Documented by: DOMENICA Ceftriaxone Sodium 1 gm/ (Sodium Chloride) 50 mls @ 100 mls/hr IV Q24H [facility] Last Infusion: 11/05/21 23:20 Dose: 0 mls/hr Documented by: CAMPOS Latanoprost (Latanoprost 0.005 % Ophth Shilpa 2.5 Ml Drops) 1 drop EYE-BOTH B EDTIME [facility] Last Admin: 11/05/21 20:14 Dose: 1 drop Documented by: CAMPOS Melatonin (Melatonin 3 Mg Tablet) 6 mg PO BEDTIME PRN PRN Reason: Insomnia Omeprazole (Omeprazole 20 Mg Capsule.) 20 mg PO DAILY [facility] Last Admin: 11/06/21 07:51 Dose: 20 mg Documented by: DOMENICA Pharmacy Consult (Consult Rx Perform Med Rec) 1 each MISCELLANE ONCE PRN PRN Reason: Consult order Potassium Chloride (Potassium Chloride Er 10 Meq Capsule.Er) 10 meq PO DAILY [facility] Last Admin: 11/06/21 07:51 Dose: 10 meq Documented by: DOMENICA Senna (Sennosides 8.6 Mg Tablet) 17.2 mg PO BEDTIME PRN PRN Reason: Constipation Sodium Chloride (0.9 % Sodium Chloride Flush 3 Ml Syringe) 3 ml IVFLUSH QSHIFT [facility] Last Admin: 11/06/21 07:50 Dose: 3 ml Documented by: DOMENICA Sodium Chloride (Sodium Chloride 0.65 % Nasal 44 Ml Sprbtl) 1 spray NOSTRIL-B Q1H PRN PRN Reason: Dryness Last Admin: 11/04/21 16:59 Dose: 1 spray Documented by: COTEMA Labs CBC & Chem 7: 11/03/21 06:37 11/06/21 06:49 Labs: Laboratory Results - last 24 hr 11/02/21 11/06/21 23:35 06:49 Anion Gap 8 L Estim Creat Clear Calc 35.4 Estimated GFR 43 Random Glucose 81 Calcium 8.4 Ur Random Urea 479 Microbiology Microbiology Results: Microbiology 10/31/21 22:05 Blood Culture - Final Blood - Venous No growth after 5 days. 10/31/21 21:59 Blood Culture - Final Blood - Venous No growth after 5 days. Assessment and Plan (1) Abnormal computerized tomography of biliary tract: Status: Acute (2) Elevated liver function tests: Status: Acute (3) Acute UTI: Status: Acute (4) UGO (acute kidney injury): Status: Acute Plan 72-year-old male with a past medical history of hypertension, peripheral vascul ar disease status post bilateral BKA; presented to the hospital with a chief complaint of low back pain/flank pain.? Noted to have UTI/from hydronephrosis.? Admitted for further management.? UTI/pyelonephritis/hydronephrosis: Urine culture showing E.coli, sensitive to Ceftriaxone -continue Ceftriaxone D6, change to Ceftin for 4 more days. UGO on CKD, Hydronephrosis, Patient baseline creatinine around 1.1-1.3.? Creatine is better, but not yet at baseline, repeat BMP today, awaiting urology consult (discussed with Dr. Kulkarni he will see him today Lactic acidosis:? Resolved with IV fluids. Constipation: Bowel regimen Ampullary lesion:? On CT scan incidentally noted to have mild intrahepatic duct dilatation with common duct prominence to the pancreas question lesion at the ampulla.? MRCP no mas , no stone. Seen by GI and no indication for ERCP, LFTs continue to trend down Pulmonary nodule:? Outpatient follow-up with PCP for surveillance CT scans. History of hypertension:? Hold home antihypertensives for now given sepsis.? History of depression: Continue home med has been Urology to see for hyodronephrosis Covid + (free screenin), Assymptomatic DVT prophylaxis:? Subcu heparin Code status:? Full code Inaptient need for UGO that still needs IVF, UTI needing IV abx,.. Now covid + which complicates disposition to SNF Quality Stroke Does the patient have a stroke diagnosis?: No VTE Prior VTE?: No VTE Risk Level:: Medical - moderate - high VTE Device Contraindication: Treatment Not Indicated VTE Drug Contraindication: N/A - Med Ordered
--- NOTE | 2021-11-06 11:09 | PM.PNNEP ---
Subjective Subjective Date of Service: 11/06/21 Interval history: Feels better. COVID positive, Creatinine improving, Awaiting Urology Input Physical Exam Vital Signs: Vital Signs: Last Vital Signs Temp 97.7 F 11/06/21 07:51 Pulse 61 11/06/21 07:51 Resp 18 11/06/21 07:51 BP 112/62 11/06/21 07:51 Pulse Ox 96 11/06/21 07:51 BMI result Body Mass Index 28.1 Const: General: comfortable Eyes: EOM: EOMs intact bilaterally Resp: Auscultation: diminished lung sounds Cardio: Rate: regular rate GI: Palpation (GI): Soft to palpation Neuro: General: moves all extremities Objective Data Labs CBC & Chem 7: 11/03/21 06:37 11/06/21 06:49 Labs: Laboratory Results - last 24 hr 11/02/21 11/06/21 23:35 06:49 Sodium 143 Potassium 4.5 D Chloride 119 H Carbon Dioxide 21 L Anion Gap 8 L BUN 21 H Creatinine 1.53 H Estim Creat Clear Calc 35.4 Estimated GFR 43 Random Glucose 81 Calcium 8.4 Ur Random Urea 479 Microbiology Microbiology Results: Microbiology 10/31/21 22:05 Blood - Venous Blood Culture - Final No growth after 5 days. 10/31/21 21:59 Blood - Venous Blood Culture - Final No growth after 5 days. 10/31/21 Unknown Urine Catheterized - Richter Catheter Urine Culture - Final Escherichia coli Procedures Date of Service Date of Service: 11/06/21 Assessment & Plan Assessment and plan (1) UGO (acute kidney injury): Status: Acute Assessment and Plan: Acute Kidney Injury due to compromise in renal perfusion + Hydronephrosis Renal functions better. Awaiting Urology input; C/W rest of current management Time Spent With Patient Time: Total time spent is greater than 50% in coordination of care (as documented) at patient's floor/unit and/or counseling patient: Progress Note: Quality Stroke Does the patient have a stroke diagnosis?: No
[2021-11-06 14:22] LABS: Complement C3 86 mg/dL
[2021-11-06] MEDS: Latanoprost 0.005 % Ophth Sol 2.5 ML DROPS 1 DROP EYE-BOTH (20:06)
[2021-11-06] MEDS: Donepezil HCl 5 MG TABLET PO (20:06)
[2021-11-06] MEDS: Melatonin 3 MG TABLET 6 MG PO (20:06)
[2021-11-06] MEDS: Doxazosin Mesylate 2 MG TABLET 4 MG PO (20:07)
[2021-11-06] MEDS: Ferrous Sulfate 324 MG TABLET.DR PO (20:07)
[2021-11-06] MEDS: cefTRIAXone sodium 1 GM in 0.9 % Sodium Chloride 50 ML IV (23:23)
[2021-11-07 03:42] VITALS: BP 126/62; PULSE 56; RESP 18; TEMP 36.8; O2SAT 96
[2021-11-07 07:27] VITALS: BP 122/71; PULSE 56; RESP 18; TEMP 36.8; O2SAT 96
--- NOTE | 2021-11-07 07:41 | P.CDIC_ITS ---
CDI Concurrent Query Documentation Clarification: PHYSICIAN'S DOCUMENTATION REQUEST Date of Query: 11/07/21 0741 Patient Name: Ronald Boogie Admit Date: 11/01/21 Dear Doctor, A review of the medical record indicates additional documentation may be needed. Please review below and update the documentation accordingly. Clinical Indicators: The following clinical information was noted in the record: Risk Factors/Clinical Indicators/Treatments 11/01/21:BUN 27/Creat 1.90, Est GFR 34 Per H&P: UGO/CKD Please clarify which of the following accurately represents the patient's renal status: * CKD, please provide stage - see criteria * Other (please specify) * Unable to determine Criteria for UGO* Stages of Chronic Kidney Disease* 1. Increase in serum creatinine by ? 0.3 mg/dL Level Description GFR (?26.5 micromol/L) within 48 hours, or G1 Normal or High > 90 2. Increase in serum creatinine to ?1.5 times baseline, G2 Mildly decreased 60 ? 89 which is known or presumed to have occurred within 7 days, or G3a Mildly to moderately decreased 45 ? 59 3. Urine volume <0.5 mL/kg/hour for six hours G3b Moderately to severely decreased 30 - 44 G4 Severely decreased 15 ? 29 G5 Kidney failure < 15 *Source: Kidney Disease: Improving Global Outcomes (KDIGO) 2012 Use of terms such as suspected, likely, concern for, or probable (associated with a specific diagnosis that is being evaluated, monitored, or treated as if it exists) are acceptable and can be coded in the inpatient setting, when documented at the time of discharge. Thank you, Paris Vera RN Extension: [phone] Please use your independent medical judgment in providing your response. THIS QUERY IS PART OF THE PERMANENT MEDICAL RECORD Provider Response: CKD Stage 3
--- NOTE | 2021-11-07 09:39 | P.PNIM_ITS ---
Subjective Subjective Date of Service: 11/07/21 Interval History: f/u on UGO, UTI, +covid Interval history: Cr has improved, no covid symptoms, Review of Systems no fever or chils, no dysuura, no abdominal pain Physical Exam Vital Signs: Vital Signs: Last Vital Signs Temp 98.3 F 11/07/21 07:27 Pulse 56 11/07/21 07:27 Resp 18 11/07/21 07:27 BP 122/71 11/07/21 07:27 Pulse Ox 96 11/07/21 07:27 BMI result Body Mass Index 28.1 Const: Other: General: AO X 3, no acute distress Resp: CTA bilateral CVS: S1,S2,RRR GI: +BS, NT, no distention Skin: No rash ex siena bka Neuro: motor grossly intact Psych: appropriate affect Objective Data Active Medications Acetaminophen (Acetaminophen 325 Mg Tablet) 650 mg PO Q6H PRN PRN Reason: Pain, Mild (Pain Scale 1-3) Last Admin: 11/02/21 02:30 Dose: 650 mg Documented by: NAFISA Acetaminophen (Acetaminophen 325 Mg Tablet) 325 mg PO BID [facility] Last Admin: 11/06/21 20:07 Dose: 325 mg Documented by: GARRET Brimonidine Tartrate (Brimonidine Tartrate 0.2% Oph 5 Ml Bottle) 1 drop EYE- BOTH BID [facility] Last Admin: 11/06/21 20:06 Dose: 1 drop Documented by: GARRET Clopidogrel Bisulfate (Clopidogrel Bisulfate 75 Mg Tablet) 75 mg PO DAILY [facility] Last Admin: 11/06/21 07:51 Dose: 75 mg Documented by: DOMENICA Cyanocobalamin (Cyanocobalamin (Vitamin B-12) 1,000 Mcg Tablet) 1,000 mcg PO DAILY [facility] Last Admin: 11/06/21 07:52 Dose: 1,000 mcg Documented by: DOMENICA Donepezil HCl (Donepezil Hcl 5 Mg Tablet) 5 mg PO BEDTIME [facility] Last Admin: 11/06/21 20:06 Dose: 5 mg Documented by: GARRET Doxazosin Mesylate (Doxazosin Mesylate 2 Mg Tablet) 4 mg PO BEDTIME [facility]; Protocol Last Admin: 11/06/21 20:07 Dose: 4 mg Documented by: GARRET Ferrous Sulfate (Ferrous Sulfate 324 Mg Tablet.) 324 mg PO BEDTIME [facility] Last Admin: 11/06/21 20:07 Dose: 324 mg Documented by: GARRET Finasteride (Finasteride 5 Mg Tablet) 5 mg PO DAILY [facility] Last Admin: 11/06/21 07:50 Dose: 5 mg Documented by: DOMENICA Heparin Sodium (Porcine) (Heparin Sodium,Porcine 5,000 Unit/Ml Vial) 5,000 unit SUBCUT Q8H [facility] Last Admin: 11/06/21 23:24 Dose: 5,000 unit Documented by: GARRET Ceftriaxone Sodium 1 gm/ (Sodium Chloride) 50 mls @ 100 mls/hr IV Q24H [facility] Last Infusion: 11/07/21 00:04 Dose: 0 mls/hr Documented by: GARRET Latanoprost (Latanoprost 0.005 % Ophth Shilpa 2.5 Ml Drops) 1 drop EYE-BOTH BEDTIME [facility] Last Admin: 11/06/21 20:06 Dose: 1 drop Documented by: GARRET Melatonin (Melatonin 3 Mg Tablet) 6 mg PO BEDTIME PRN PRN Reason: Insomnia Last Admin: 11/06/21 20:06 Dose: 6 mg Documented by: GARRET Omeprazole (Omeprazole 20 Mg Capsule.) 20 mg PO DAILY [facility] Last Admin: 11/06/21 07:51 Dose: 20 mg Documented by: DOMENICA Pharmacy Consult (Consult Rx Perform Med Rec) 1 each MISCELLANE ONCE PRN PRN Reason: Consult order Potassium Chloride (Potassium Chloride Er 10 Meq Capsule.Er) 10 meq PO DAILY [facility] Last Admin: 11/06/21 07:51 Dose: 10 meq Documented by: DOMENICA Senna (Sennosides 8.6 Mg Tablet) 17.2 mg PO BEDTIME PRN PRN Reason: Constipation Sodium Chloride (0.9 % Sodium Chloride Flush 3 Ml Syringe) 3 ml IVFLUSH QSHIFT [facility] Last Admin: 11/06/21 20:12 Dose: 3 ml Documented by: GARRET Sodium Chloride (Sodium Chloride 0.65 % Nasal 44 Ml Sprbtl) 1 spray NOSTRIL-B Q1H PRN PRN Reason: Dryness Last Admin: 11/04/21 16:59 Dose: 1 spray Documented by: HO.COTEMA Labs CBC & Chem 7: 11/03/21 06:37 11/06/21 06:49 Labs: Laboratory Results - last 24 hr 11/03/21 06:37 Complement C3 86 Complement C4 35 Assessment and Plan (1) Abnormal computerized tomography of biliary tract: Status: Acute (2) Elevated liver function tests: Status: Acute (3) Acute UTI: Status: Acute (4) UGO (acute kidney injury): Status: Acute Plan 72-year-old male with a past medical history of hypertension, peripheral vascul ar disease status post bilateral BKA; presented to the hospital with a chief complaint of low back pain/flank pain.? Noted to have UTI/from hydronephrosis.? Admitted for further management.? UTI/pyelonephritis/hydronephrosis: Urine culture showing E.coli, sensitive to Ceftriaxone -continue Ceftriaxone D6, change to Ceftin for 4 more days. UGO on CKD, Hydronephrosis, Patient baseline creatinine around 1.1-1.3.? Creatine is better, but not yet at baseline, repeat BMP today, awaiting urology consult (discussed with Dr. Kulkarni he will see him today Lactic acidosis:? Resolved with IV fluids. Constipation: Bowel regimen Ampullary lesion:? On CT scan incidentally noted to have mild intrahepatic duct dilatation with common duct prominence to the pancreas question lesion at the ampulla.? MRCP no mas , no stone. Seen by GI and no indication for ERCP, LFTs continue to trend down Pulmonary nodule:? Outpatient follow-up with PCP for surveillance CT scans. History of hypertension:? Hold home antihypertensives for now given sepsis.? History of depression: Continue home med has been Urology to see for hyodronephrosis Covid + (free screenin), Assymptomatic DVT prophylaxis:? Subcu heparin Code status:? Full code Inaptient need for UGO that still needs IVF, UTI needing IV abx,.. Now covid + which complicates disposition to SNF--won't take until quarantine for 5 days, therefore discharge on 11/09/21 Quality Stroke Does the patient have a stroke diagnosis?: No VTE Prior VTE?: No VTE Risk Level:: Medical - moderate - high VTE Device Contraindication: Treatment Not Indicated VTE Drug Contraindication: N/A - Med Ordered
[2021-11-07] MEDS: Finasteride 5 MG TABLET PO (10:38)
[2021-11-07] MEDS: Cyanocobalamin (Vitamin B-12) 1,000 MCG TABLET 1000 MCG PO (10:39)
[2021-11-07] MEDS: Acetaminophen 325 MG TABLET PO ×2 (10:40→22:11)
[2021-11-07] MEDS: Omeprazole 20 MG CAPSULE.DR PO (10:40)
[2021-11-07] MEDS: Clopidogrel Bisulfate 75 MG TABLET PO (10:40)
[2021-11-07] MEDS: Heparin Sodium,Porcine 5,000 UNIT/ML VIAL 5000 UNIT SUBCUT ×2 (10:41→17:53)
[2021-11-07] MEDS: Brimonidine Tartrate 0.2% Oph 5 ML BOTTLE 1 DROP EYE-BOTH ×2 (10:45→22:07)
[2021-11-07] MEDS: 0.9 % Sodium Chloride Flush 3 ML SYRINGE IVFLUSH ×3 (10:45→22:08)
[2021-11-07 11:11] VITALS: BP 118/65; PULSE 51; RESP 18; TEMP 36.6; O2SAT 97
--- NOTE | 2021-11-07 11:33 | PM.PNNEP ---
Subjective Subjective Date of Service: 11/07/21 Interval history: Events noted. All recent data reviewed Physical Exam Vital Signs: Vital Signs: Last Vital Signs Temp 97.8 F 11/07/21 11:11 Pulse 51 11/07/21 11:11 Resp 18 11/07/21 11:11 BP 118/65 11/07/21 11:11 Pulse Ox 97 11/07/21 11:11 BMI result Body Mass Index 28.1 Const: General: no acute distress Eyes: EOM: EOMs intact bilaterally Neck: Neck: Yes supple Resp: Auscultation: diminished lung sounds Cardio: Rate: regular rate GI: Palpation (GI): Soft to palpation Neuro: General: moves all extremities Objective Data Labs CBC & Chem 7: 11/03/21 06:37 11/06/21 06:49 Labs: Laboratory Results - last 24 hr 11/03/21 06:37 Complement C3 86 Complement C4 35 Microbiology Microbiology Results: Microbiology 10/31/21 22:05 Blood - Venous Blood Culture - Final No growth after 5 days. 10/31/21 21:59 Blood - Venous Blood Culture - Final No growth after 5 days. 10/31/21 Unknown Urine Catheterized - Richter Catheter Urine Culture - Final Escherichia coli Procedures Date of Service Date of Service: 11/07/21 Assessment & Plan Assessment and plan (1) UGO (acute kidney injury): Status: Acute Assessment and Plan: Acute Kidney Injury due to compromise in renal perfusion + Hydronephrosis Renal functions better/stable. Awaiting Urology input; C/W rest of current management Time Spent With Patient Time: Total time spent is greater than 50% in coordination of care (as documented) at patient's floor/unit and/or counseling patient: Progress Note: Quality Stroke Does the patient have a stroke diagnosis?: No
--- NOTE | 2021-11-07 11:53 | MHC.CM.PN ---
Patient has been accepted at [facility] on 11/09/21 for STR (COVID POSITIVE);CM will follow.
[2021-11-07 14:59] VITALS: BP 95/55; PULSE 59; RESP 18; TEMP 36.4; O2SAT 98
--- NOTE | 2021-11-07 17:14 | P.CNUR_ITS ---
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 Initiate finasteride and alpha-sumit therapy with doxazosin Richetr catheter can be removed in a few weeks as outpatient Review of Systems Constitutional: Constitutional: Reports as per HPI and Reports no additional constitutional complaints Cardiovascular: Cardiovascular: Reports as per HPI and Reports no additional cardiovascular complaints Respiratory: Respiratory: Reports as per HPI and Reports no additional respiratory complaints Gastrointestinal: Gastrointestinal: Reports as per HPI and Reports no additional gastrointestinal complaints Genitourinary: Genitourinary: Reports as per HPI Musculoskeletal: Musculoskeletal: Reports no additional musculoskeletal complaints and Reports as per HPI Neurologic: Reports system reviewed and no additional complaints, except as documented and Reports as per HPI PMFSH Past Medical History Medical History Chronic kidney disease GERD (gastroesophageal reflux disease) Hypertension Peripheral vascular disease Polyneuropathy Surgical History Surgical History History of amputation below knee History of appendectomy History of tonsillectomy Hx of bilateral hip replacements Social History Social History Household Members: Spouse Housing: House Are you a primary critical care transport nurse to a significant other at home: No Do you presently have visiting nurse or other home services: Yes (nib adjuster) Alcohol intake: never Patient Tobacco Use Status: Former Tobacco user service: No Current occupational status: retired [employer] Allergies Allergy/AdvReac Type Severity Reaction Status Date / Time No Known Allergies Allergy Verified 10/31/21 18:28 [No Known Allergies*] Active Medications: Current Medications Acetaminophen (Acetaminophen 325 Mg Tablet) 650 mg PO Q6H PRN PRN Reason: Pain, Mild (Pain Scale 1-3) Last Admin: 11/02/21 02:30 Dose: 650 mg Documented by: Acetaminophen (Acetaminophen 325 Mg Tablet) 325 mg PO BID RAYSA Last Admin: 11/07/21 10:40 Dose: 325 mg Documented by: Brimonidine Tartrate (Brimonidine Tartrate 0.2% Oph 5 Ml Bottle) 1 drop EYE- BOTH BID [facility] Last Admin: 11/07/21 10:45 Dose: 1 drop Documented by: Cefuroxime Axetil (Cefuroxime Axetil 250 Mg Tablet) 250 mg PO Q12H [facility] Last Admin: 11/07/21 10:40 Dose: 250 mg Documented by: Clopidogrel Bisulfate (Clopidogrel Bisulfate 75 Mg Tablet) 75 mg PO DAILY [facility] Last Admin: 11/07/21 10:40 Dose: 75 mg Documented by: Cyanocobalamin (Cyanocobalamin (Vitamin B-12) 1,000 Mcg Tablet) 1,000 mcg PO DAILY [facility] Last Admin: 11/07/21 10:39 Dose: 1,000 mcg Documented by: Donepezil HCl (Donepezil Hcl 5 Mg Tablet) 5 mg PO BEDTIME [facility] Last Admin: 11/06/21 20:06 Dose: 5 mg Documented by: Doxazosin Mesylate (Doxazosin Mesylate 2 Mg Tablet) 4 mg PO BEDTIME [facility]; Protocol Last Admin: 11/06/21 20:07 Dose: 4 mg Documented by: Ferrous Sulfate (Ferrous Sulfate 324 Mg Tablet.) 324 mg PO BEDTIME [facility] Last Admin: 11/06/21 20:07 Dose: 324 mg Documented by: Finasteride (Finasteride 5 Mg Tablet) 5 mg PO DAILY [facility] Last Admin: 11/07/21 10:38 Dose: 5 mg Documented by: Heparin Sodium (Porcine) (Heparin Sodium,Porcine 5,000 Unit/Ml Vial) 5,000 unit SUBCUT Q8H [facility] Last Admin: 11/07/21 10:41 Dose: 5,000 unit Documented by: Latanoprost (Latanoprost 0.005 % Ophth Shilpa 2.5 Ml Drops) 1 drop EYE-BOTH BEDTIME [facility] Last Admin: 11/06/21 20:06 Dose: 1 drop Documented by: Melatonin (Melatonin 3 Mg Tablet) 6 mg PO BEDTIME PRN PRN Reason: Insomnia Last Admin: 11/06/21 20:06 Dose: 6 mg Documented by: Omeprazole (Omeprazole 20 Mg Capsule.) 20 mg PO DAILY [facility] Last Admin: 11/07/21 10:40 Dose: 20 mg Documented by: Pharmacy Consult (Consult Rx Perform Med Rec) 1 each MISCELLANE ONCE PRN PRN Reason: Consult order Potassium Chloride (Potassium Chloride Er 10 Meq Capsule.Er) 10 meq PO DAILY [facility] Last Admin: 11/07/21 10:39 Dose: 10 meq Documented by: Senna (Sennosides 8.6 Mg Tablet) 17.2 mg PO BEDTIME PRN PRN Reason: Constipation Sodium Chloride (0.9 % Sodium Chloride Flush 3 Ml Syringe) 3 ml IVFLUSH QSHIFT [facility] Last Admin: 11/07/21 10:45 Dose: 3 ml Documented by: Sodium Chloride (Sodium Chloride 0.65 % Nasal 44 Ml Sprbtl) 1 spray NOSTRIL-B Q1H PRN PRN Reason: Dryness Last Admin: 11/04/21 16:59 Dose: 1 spray Documented by: Home Medications Medication Instructions Recorded Confirmed Last Taken Type clopidogrel 75 mg tablet 75 mg PO DAILY 04/18/20 11/01/21 10/31/21 History latanoprost 0.005 % eye drops 1 drp OPHTHALMIC (EYE) BEDTIME ml 04/18/20 11/01/21 10/31/21 History omeprazole 20 mg capsule,delayed 20 mg PO DAILY 04/18/20 11/01/21 10/31/21 History release potassium chloride 10 mEq 10 meq PO DAILY 04/18/20 11/01/21 10/31/21 History tablet,extended release acetaminophen 500 mg tablet 500 mg PO BID 11/01/21 11/01/21 10/31/21 History ascorbic acid (vitamin C) 500 mg 500 mg PO BID 11/01/21 11/01/21 10/31/21 History tablet brimonidine 0.2 % eye drops 1 drp OPHTHALMIC (EYE) BID 11/01/21 11/01/21 10/31/21 History carvedilol 12.5 mg tablet 1 tab PO BID 11/01/21 11/01/21 10/31/21 History cyanocobalamin (vitamin B-12) 1 tab PO DAILY 11/01/21 11/01/21 10/31/21 History 1,000 mcg tablet (Vitamin B-12) donepezil 5 mg tablet 1 tab PO QPM 11/01/21 11/01/21 10/31/21 History ferrous sulfate 325 mg (65 mg 1 tab PO QPM 11/01/21 11/01/21 10/31/21 History iron) tablet Physical Exam Vital Signs: Vital Signs: Last Vital Signs Temp 97.5 F 11/07/21 14:59 Pulse 59 11/07/21 14:59 Resp 18 11/07/21 14:59 BP 95/55 L 11/07/21 14:59 Pulse Ox 98 11/07/21 14:59 BMI result Body Mass Index 28.1 Const: General: cooperative, healthy appearing, comfortable and no acute distress Orientation/consciousness: patient oriented x3 HEENT: Face and sinus: Yes normal facial exam Mouth: moist mucous membranes Neck: Neck: Yes normal visual inspection, Yes full ROM and Yes trachea midline Chest: Chest palpation & inspection: normal inspection of the chest Resp: Effort & Inspection: normal respiratory effort, able to speak in complete sentences and no respiratory distress GI: Inspection: Yes normal to inspection Back/Spine/Pelvis: Cervical Spine: normal cervical lordosis Thoracic/Lumbar Spine: thoracic and lumbar spine normal to inspection Skin: General skin exam: no rashes or lesions noted Neuro: General: patient oriented x3, tone normal and moves all extremities Extrem: General: Yes normal to inspection and Yes capillary refill normal Results Labs Result diagrams: 11/03/21 06:37 11/06/21 06:49 Labs: Urine 10/31/21 11/02/21 Range/Units 22:43 23:35 Urine Color YELLOW YELLOW Urine Appearance CLOUDY [place]ZY Urine pH 6.0 6.0 (5.0-8.0) Ur Specific [place] 1.010 1.015 (1.005-1.025) Urine Protein TRACE 2+ H (NEG-TRACE) MG/DL Urine Glucose (UA) NEG NEG (NEG) MG/DL All other labs normal. Assessment and Plan (1) Bladder outlet obstruction: Status: Acute (2) Bilateral hydronephrosis: Status: Acute (3) UGO (acute kidney injury): Status: Acute Plan Initiate finasteride and alpha-sumit therapy Richter catheter to remain for 2-4 weeks with removal as outpatient Procedures Date of Service Date of Service: 11/06/21
[2021-11-07 19:13] VITALS: BP 115/61; PULSE 58; RESP 18; TEMP 36.3; O2SAT 97
[2021-11-07] MEDS: Latanoprost 0.005 % Ophth Sol 2.5 ML DROPS 1 DROP EYE-BOTH (22:07)
[2021-11-07] MEDS: Ferrous Sulfate 324 MG TABLET.DR PO (22:07)
[2021-11-07] MEDS: Doxazosin Mesylate 2 MG TABLET 4 MG PO (22:07)
[2021-11-07] MEDS: Donepezil HCl 5 MG TABLET PO (22:07)
[2021-11-08] VITALS: BP 106/53; PULSE 50; RESP 18; TEMP 37; O2SAT 94
[2021-11-08] MEDS: Heparin Sodium,Porcine 5,000 UNIT/ML VIAL 5000 UNIT SUBCUT ×4 (00:18→23:52)
[2021-11-08 03:43] VITALS: BP 118/66; PULSE 55; RESP 20; TEMP 37.1; O2SAT 99
[2021-11-08 07:49] VITALS: BP 118/59; PULSE 57; RESP 20; TEMP 36.7; O2SAT 97
[2021-11-08 07:58] LABS: Anion Gap 8 (12-20); Blood Urea Nitrogen 18 mg/dL (9-16); Calcium 8.8 mg/dL (8.4-10.2); Carbon Dioxide 24 mmol/L (22-29); Chloride 115 mmol/L (96-108); Estimated Glomerular Filt Rate 51; Glucose Random 83 mg/dL (60-115); Potassium 4.9 mmol/L (3.3-5.1); Sodium 142 mmol/L (135-145)
[2021-11-08] MEDS: Clopidogrel Bisulfate 75 MG TABLET PO (09:10)
[2021-11-08] MEDS: 0.9 % Sodium Chloride Flush 3 ML SYRINGE IVFLUSH ×3 (09:11→21:20)
[2021-11-08] MEDS: Acetaminophen 325 MG TABLET PO ×2 (09:11→21:19)
[2021-11-08] MEDS: Finasteride 5 MG TABLET PO (09:11)
[2021-11-08] MEDS: Cyanocobalamin (Vitamin B-12) 1,000 MCG TABLET 1000 MCG PO (09:11)
[2021-11-08] MEDS: Omeprazole 20 MG CAPSULE.DR PO (09:11)
--- NOTE | 2021-11-08 10:52 | PM.PNNEP ---
Subjective Subjective Date of Service: 11/08/21 Interval history: Events noted. All recent data reviewed Physical Exam Vital Signs: Vital Signs: Last Vital Signs Temp 98.1 F 11/08/21 07:49 Pulse 57 11/08/21 07:49 Resp 20 11/08/21 07:49 BP 118/59 L 11/08/21 07:49 Pulse Ox 97 11/08/21 07:49 BMI result Body Mass Index 28.1 Const: General: no acute distress Eyes: EOM: EOMs intact bilaterally Neck: Neck: Yes supple Resp: Auscultation: diminished lung sounds Cardio: Rate: regular rate GI: Palpation (GI): Soft to palpation Neuro: General: moves all extremities Objective Data Labs CBC & Chem 7: 11/03/21 06:37 11/08/21 07:14 Labs: Laboratory Results - last 24 hr 11/08/21 07:14 Sodium 142 Potassium 4.9 Chloride 115 H Carbon Dioxide 24 Anion Gap 8 L BUN 18 H Creatinine 1.32 Estim Creat Clear Calc 41.0 Estimated GFR 51 Random Glucose 83 Calcium 8.8 Microbiology Microbiology Results: Microbiology 10/31/21 22:05 Blood - Venous Blood Culture - Final No growth after 5 days. 10/31/21 21:59 Blood - Venous Blood Culture - Final No growth after 5 days. 10/31/21 Unknown Urine Catheterized - Richter Catheter Urine Culture - Final Escherichia coli Procedures Date of Service Date of Service: 11/08/21 Assessment & Plan Assessment and plan (1) UGO (acute kidney injury): Status: Acute Assessment and Plan: Acute Kidney Injury due to compromise in renal perfusion + Hydronephrosis Renal functions better. Urology seen ; C/W rest of current management Time Spent With Patient Time: Total time spent is greater than 50% in coordination of care (as documented) at patient's floor/unit and/or counseling patient: Progress Note: Quality Stroke Does the patient have a stroke diagnosis?: No
[2021-11-08 11:25] VITALS: BP 126/49; PULSE 58; RESP 20; TEMP 36.6; O2SAT 96
--- NOTE | 2021-11-08 14:08 | P.PNIM_ITS ---
Subjective Subjective Date of Service: 11/08/21 Interval History: being followed for COVID, UGO and UTI, patient offers no acute complaints this morning denies fever chills, no headache, no nausea , no vomiting or abdominal pain. 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 CTA bilateral CVS: S1,S2,RRR GI: +BS, NT, no distention Skin: No rash ex siena bka Neuro:? motor grossly intact Psych: appropriate affect ? Objective Data Active Medications Acetaminophen (Acetaminophen 325 Mg Tablet) 650 mg PO Q6H PRN PRN Reason: Pain, Mild (Pain Scale 1-3) Last Admin: 11/02/21 02:30 Dose: 650 mg Documented by: NAFISA Acetaminophen (Acetaminophen 325 Mg Tablet) 325 mg PO BID [facility] Last Admin: 11/08/21 09:11 Dose: 325 mg Documented by: ARTI Brimonidine Tartrate (Brimonidine Tartrate 0.2% Oph 5 Ml Bottle) 1 drop EYE- BOTH BID [facility] Last Admin: 11/08/21 09:21 Dose: Not Given Documented by: ARTI Non-Admin Reason: Med Not Available Cefuroxime Axetil (Cefuroxime Axetil 250 Mg Tablet) 250 mg PO Q12H [facility] Last Admin: 11/08/21 09:10 Dose: 250 mg Documented by: ARTI Clopidogrel Bisulfate (Clopidogrel Bisulfate 75 Mg Tablet) 75 mg PO DAILY [facility] Last Admin: 11/08/21 09:10 Dose: 75 mg Documented by: ARTI Cyanocobalamin (Cyanocobalamin (Vitamin B-12) 1,000 Mcg Tablet) 1,000 mcg PO DAILY [facility] Last Admin: 11/08/21 09:11 Dose: 1,000 mcg Documented by: ARTI Donepezil HCl (Donepezil Hcl 5 Mg Tablet) 5 mg PO BEDTIME [facility] Last Admin: 11/07/21 22:07 Dose: 5 mg Documented by: RYAN Doxazosin Mesylate (Doxazosin Mesylate 2 Mg Tablet) 4 mg PO BEDTIME [facility]; Protocol Last Admin: 11/07/21 22:07 Dose: 4 mg Documented by: RYAN Ferrous Sulfate (Ferrous Sulfate 324 Mg Tablet.) 324 mg PO BEDTIME [facility] Last Admin: 11/07/21 22:07 Dose: 324 mg Documented by: RYAN Finasteride (Finasteride 5 Mg Tablet) 5 mg PO DAILY [facility] Last Admin: 11/08/21 09:11 Dose: 5 mg Documented by: ARTI Heparin Sodium (Porcine) (Heparin Sodium,Porcine 5,000 Unit/Ml Vial) 5,000 unit SUBCUT Q8H [facility] Last Admin: 11/08/21 09:11 Dose: 5,000 unit Documented by: ARTI Latanoprost (Latanoprost 0.005 % Ophth Shilpa 2.5 Ml Drops) 1 drop EYE-BOTH BEDTIME [facility] Last Admin: 11/07/21 22:07 Dose: 1 drop Documented by: RYAN Melatonin (Melatonin 3 Mg Tablet) 6 mg PO BEDTIME PRN PRN Reason: Insomnia Last Admin: 11/06/21 20:06 Dose: 6 mg Documented by: GARRET Omeprazole (Omeprazole 20 Mg Capsule.) 20 mg PO DAILY [facility] Last Admin: 11/08/21 09:11 Dose: 20 mg Documented by: ARTI Pharmacy Consult (Consult Rx Perform Med Rec) 1 each MISCELLANE ONCE PRN PRN Reason: Consult order Potassium Chloride (Potassium Chloride Er 10 Meq Capsule.Er) 10 meq PO DAILY [facility] Last Admin: 11/08/21 09:10 Dose: 10 meq Documented by: ARTI Senna (Sennosides 8.6 Mg Tablet) 17.2 mg PO BEDTIME PRN PRN Reason: Constipation Sodium Chloride (0.9 % Sodium Chloride Flush 3 Ml Syringe) 3 ml IVFLUSH QSHIFT [facility] Last Admin: 11/08/21 09:11 Dose: 3 ml Documented by: ARTI Sodium Chloride (Sodium Chloride 0.65 % Nasal 44 Ml Sprbtl) 1 spray NOSTRIL-B Q1H PRN PRN Reason: Dryness Last Admin: 11/04/21 16:59 Dose: 1 spray Documented by: GOKUL Labs CBC & Chem 7: 11/03/21 06:37 11/08/21 07:14 Labs: Laboratory Results - last 24 hr 11/08/21 07:14 Anion Gap 8 L Estim Creat Clear Calc 41.0 Estimated GFR 51 Random Glucose 83 Calcium 8.8 Assessment and Plan (1) Abnormal computerized tomography of biliary tract: Status: Acute (2) Elevated liver function tests: Status: Acute (3) Acute UTI: Status: Acute (4) UGO (acute kidney injury): Status: Acute Plan 72-year-old male with a past medical history of hypertension, peripheral vascu lar disease status post bilateral BKA; presented to the hospital with a chief complaint of low back pain/flank pain.? Noted to have UTI/from hydronephrosis.? Admitted for further management.? UTI/pyelonephritis/hydronephrosis: Urine culture showing E.coli, sensitive to Ceftriaxone -on po Ceftin day12/30 no recurrent fever, no dysuria. UGO on CKD, Hydronephrosis, creatinine returned to baseline 1.3, evaluated by Dr. Kulkarni, presumed diagnosis is J hooking of bilateral ureters secondary to anibal dder dysfunction, he recommend finasteride and alpha-sumit therapy with doxazosin, and recommend to remove Richter catheter in few weeks as outpatient Lactic acidosis:? Resolved with IV fluids. Constipation: resolved Bowel regimen Ampullary lesion:? On CT scan incidentally noted to have mild intrahepatic duct dilatation with common duct prominence to the pancreas question lesion at the ampulla.? MRCP no mas , no stone. Seen by GI and no indication for ERCP, LFTs continue to trend down Pulmonary nodule:? Outpatient follow-up with PCP for surveillance CT scans. History of hypertension: stable blood pressure? ,antihypertensives on hold . History of depression: Continue home med has been Covid + (free screening), Asymptomatic Peripheral vascular disease continue Plavix DVT prophylaxis:? Subcu heparin Code status:? Full code need inpatient hospitalization due to covid + which complicates disposition to SNF--won't take until quarantine for 5 days, therefore discharge on 11/09/21 Quality Stroke Does the patient have a stroke diagnosis?: No VTE Prior VTE?: No VTE Risk Level:: Medical - moderate - high VTE Device Contraindication: Treatment Not Indicated VTE Drug Contraindication: N/A - Med Ordered
[2021-11-08 15:27] VITALS: BP 117/67; PULSE 58; RESP 19; TEMP 36.4; O2SAT 95
[2021-11-08 19:48] VITALS: BP 94/51; PULSE 65; RESP 18; TEMP 36.8; O2SAT 95
[2021-11-08] MEDS: Doxazosin Mesylate 2 MG TABLET 4 MG PO (21:20)
[2021-11-08] MEDS: Ferrous Sulfate 324 MG TABLET.DR PO (21:20)
[2021-11-08] MEDS: Donepezil HCl 5 MG TABLET PO (21:20)
[2021-11-08] MEDS: Latanoprost 0.005 % Ophth Sol 2.5 ML DROPS 1 DROP EYE-BOTH (21:23)
[2021-11-08] MEDS: Brimonidine Tartrate 0.2% Oph 5 ML BOTTLE 1 DROP EYE-BOTH (21:23)
[2021-11-09] VITALS: BP 111/60; PULSE 55; RESP 18; TEMP 36.6; O2SAT 96
[2021-11-09 04:00] VITALS: BP 116/60; PULSE 56; RESP 16; TEMP 36.4; O2SAT 97
[2021-11-09 07:08] VITALS: BP 111/56; PULSE 62; RESP 16; TEMP 36.7; O2SAT 96
[2021-11-09] MEDS: Omeprazole 20 MG CAPSULE.DR PO (08:10)
[2021-11-09] MEDS: 0.9 % Sodium Chloride Flush 3 ML SYRINGE IVFLUSH (08:10)
[2021-11-09] MEDS: Finasteride 5 MG TABLET PO (08:10)
[2021-11-09] MEDS: Clopidogrel Bisulfate 75 MG TABLET PO (08:10)
[2021-11-09] MEDS: Heparin Sodium,Porcine 5,000 UNIT/ML VIAL 5000 UNIT SUBCUT (08:10)
[2021-11-09] MEDS: Cyanocobalamin (Vitamin B-12) 1,000 MCG TABLET 1000 MCG PO (08:10)
[2021-11-09] MEDS: Acetaminophen 325 MG TABLET PO (08:11)
[2021-11-09] MEDS: Brimonidine Tartrate 0.2% Oph 5 ML BOTTLE 1 DROP EYE-BOTH (08:12)
[2021-11-09 08:29] VITALS: BP 111/56; PULSE 62; O2SAT 96
--- NOTE | 2021-11-09 11:00 | P.DS_ITS ---
DS: Providers Provider Date of Service: 11/09/21 Date of admission: 11/01/21 00:11 Primary care physician: Shiloh Whitehead MD Consults: 11/01/21 00:11 Consult to Urology Routine Consulting Provider: Sean Kulkarni Reason for consultation: uti/hydronephrosis 11/01/21 06:05 Consult to Gastroenterology Routine Consulting Provider: Ronald Sandhu Reason for consultation: ?ampullary lesion; dilated ducts 11/02/21 11:49 Consult to Nephrology Routine Consulting Provider: Bashir Freire Reason for consultation: UGO 11/05/21 10:27 Consult to Urology Routine Consulting Provider: Sean Kulkarni Reason for consultation: Hydronephrosis Has provider been notified: No DS: Diagnosis Discharge Diagnosis (1) Abnormal computerized tomography of biliary tract: Status: Acute (2) Elevated liver function tests: Status: Acute (3) Acute UTI: Status: Acute (4) UGO (acute kidney injury): Status: Acute DS: Summary Hospital Course Hospital Course: History of presenting illness: Date of Service: 11/01/21 Chief Complaint: Flank pain 85-year-old male with a past medical history of hypertension, peripheral vascular disease status post BKA, polyneuropathy, chronic kidney disease presented to the hospital with a chief complaint of flank pain.? Patient mentioned that he has been having flank pain for the past 4-5 days; occasional urinary discomfort; denies any fevers.? Denies any abdominal pain.? Denies any hematuria.? Denies any numbness tingling or focal weakness.? Denies any chest pain or palpitations.? Review of all other systems is negative except mentioned above ER course: Per ER team patient noted to have abnormal urinalysis consistent with UTI; CT scan showed bilateral hydronephrosis; given ceftriaxone.? Admitted to the hospital for further management. Hospital course 72-year-old male with a past medical history of hypertension, peripheral vascul ar disease status post bilateral BKA; presented to the hospital with a chief complaint of low back pain/flank pain.? Noted to have UTI/from hydronephrosis.? Admitted for further management.? acute Pyelonephritis with bilateral hydronephrosis, patient treated with IV ceftriaxone, Urine culture showed E.coli, sensitive to Ceftriaxone, patient had no further bout of recurrent fevers no dysuria, now being discharged to rehab facility and 2 more days of by mouth Ceftin 250 mg twice Daily UGO on CKD stage III, CT abdomen and pelvis showed bilateral Hydronephrosis, Richter catheter placed, creatinine returned to baseline 1.3, patient evaluated by Dr. 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 Lactic acidosis:? Resolved with IV fluids was likely due to infection. Ampullary lesion:? On CT scan incidentally noted to have mild intrahepatic duct dilatation with common duct prominence to the pancreas question lesion at the ampulla.? MRCP showed no mas , no stone. Seen by GI and no indication for ERCP, LFTs returned to normal. Pulmonary nodule: Incidentally noted on CT abdomen?Left basilar nodule. Measures 9 mm. radiology recommend outpatient CT chest History of hypertension: noted to have soft blood pressure therefore Coreg has been discontinued BP remains stable History of depression: Continue home medications. Covid + patient remains asymptomatic. Peripheral vascular disease continue Plavix. Time Spent with Patient Time attestation: Total time spent providing and/or coordinating discharge services: Discharge coordination time: Greater than 30 minutes Quality: Safe Use of Opioids Does Pt have an Active Cancer Diagnosis on the Problem List?: No Quality: Stroke Does the patient have a stroke diagnosis?: No Physical Exam Vital Signs: Vital Signs: Last Vital Signs Temp 98.0 F 11/09/21 07:08 Pulse 62 11/09/21 08:29 Resp 16 11/09/21 07:08 BP 111/56 L 11/09/21 08:29 Pulse Ox 96 11/09/21 08:29 BMI result Body Mass Index 28.1 Const: Other: General: Ax O X 3, no acute distress Neck no JVD Resp:? CTA bilateral CVS: S1,S2,RRR GI: soft nontender, bowel sounds audible, no distention Skin: No rash Extremities bilateral BKA Neuro:? motor grossly intact Psych: appropriate affect Discharge Plan Discharge Patient Disposition: er SNF Discharge Diagnosis: pyelonephritis/hydronephrosis acute on chronic kidney disease stage 3 urinary retention COVID infection pulmonary nodule Referrals: [facility] [Outside] - 1 Week Shiloh Whitehead MD [Primary Care Provider] - 1 Week Discharge Medications: New terazosin 5 mg capsule 5 mg PO BEDTIME 30 Days Qty: 30 0RF finasteride 5 mg tablet 5 mg PO DAILY 30 Days Qty: 30 1RF Rx Instructions: Daily tablet cefuroxime axetil 250 mg Tablet 250 mg PO Q12H Qty: 4 0RF Continued donepezil 5 mg tablet 1 tab PO QPM 0RF cyanocobalamin (vitamin B-12) [Vitamin B-12] 1,000 mcg tablet 1 tab PO DAILY 0RF ferrous sulfate 325 mg (65 mg iron) tablet 1 tab PO QPM 0RF brimonidine 0.2 % drops 1 drp ophthalmic (eye) BID 0RF acetaminophen 500 mg Tablet 500 mg PO BID 0RF ascorbic acid (vitamin C) 500 mg Tablet 500 mg PO BID 0RF clopidogrel 75 mg tablet 75 mg PO DAILY 0RF omeprazole 20 mg capsule,delayed release(DR/EC) 20 mg PO DAILY 0RF latanoprost 0.005 % drops 1 drp ophthalmic (eye) BEDTIME 0RF Discontinued carvedilol 12.5 mg tablet 1 tab PO BID 0RF potassium chloride 10 mEq tablet extended release 10 meq PO DAILY 0RF Discharge Orders: Discharge Order (Routine); Ordered 11/09/21 Ordered By: Janet Jenkins Diet: advance to usual diet Activity on Discharge: As tolerated Stand Alone Forms: Patient Portal Discharge page Care Plan Goals: acute pyelonephritis take antibiotics as directed, continue bowel regimen to avoid constipation, follow with primary care physician surveillance CT scans for pulmonary nodule, noted to have low blood pressures therefore Coreg discontinued, also stopped potassium since noted to have normal potassium levels Health Concerns: urinary retention removed Richter catheter in 2 weeks, follow-up with Urology Dr. Kulkarni Plan of Treatment: follow-up with primary care physician Assessment: as per discharge summary
[2021-11-09 11:08] VITALS: BP 113/54; PULSE 63; RESP 20; TEMP 36.8; O2SAT 98
--- NOTE | 2021-11-09 11:40 | MHC.CM.PN ---
IMM 11/09/21 Male 85 DX Covid+ UTI He is discharged to [facility] for STR today. He will transport via BLS at 1pm today.
[2021-11-10 09:07] LABS: Carbohydrate Antigen 19-9 15 U/mL (<34)
--- NOTE | 2021-11-21 13:12 | P.CDIR_ITS ---
Documented by User: Paris Vera RN 11/30/21 07:03 Retrospective Query PHYSICIAN'S DOCUMENTATION REQUEST Date of Query: 11/21/21 1312 Patient Name: Ronald Boogie Admit Date: 11/01/21 Dear Doctor, A review of the medical record indicates additional documentation may be needed. Please review below and update the documentation accordingly. Clinical Indicators: Documentation on progress note dated 11/02/21 included the diagnosis of sepsis. The patient's infectious clinical indicators include: Risk Factors/Clinical Indicators/Treatments T 100.6 - 102.8 LA 2.5 urine culture: E Coli blood culture negative Treated with IV Ceftriaxone UTI, Pyelonephritis, Hydronephrosis per H&P Recognized standard criteria for this condition and other infectious definitions includes: Sepsis Systemic manifestations of infection, with 2 or more SIRS criteria which include: * Fever > 100.4?F or hypothermia < 96.8?F * Leukocytosis ? WBC > 12,000 or leukopenia, WBC < 4,000, or > 10% bands * Tachycardia- > 90 beats/minute * Tachypnea- RR > 20 breaths/minute or PaCO2 < 32mmHg Source: Merck Manual 2013 Documentation should include the known or suspected organism, and the underlying infection, such as UTI or pneumonia Based on the above information and the recognized standard for sepsis, could you please clarify in the Progress Notes if this diagnoses is still accurate and reflective of the patient's condition to ensure quality of the medical record. * Sepsis is/was present on admission and is a clinical diagnosis * After study, Sepsis has been ruled out * Other (please specify) * Unable to determine Use of terms such as suspected, likely, concern for, or probable (associated with a specific diagnosis that is being evaluated, monitored, or treated as if it exists) are acceptable and can be coded in the inpatient setting, when documented at the time of discharge. Thank you, Paris Vera RN Extension: [phone] Please use your independent medical judgment in providing your response. THIS QUERY IS PART OF THE PERMANENT MEDICAL RECORD Documented by User: Janet Jenkins MD 12/06/21 11:13 Retrospective Query Provider Response: Other
== END 2021-11-09 14:18 | disposition skilled nursing facility (03) | DRG 871 ==
LOC: HO.ED 23:58 → HO.EDOVER 11-01 00:27 → HO.ICU 11-02 07:23 → HO.IMC 11-02 11:42
PROVIDERS: Internal Medicine; Internal Medicine Nephrology; Nurse Practitioner Acute Care; Physician Assistant; Admitting Provider Hospitalist; Emergency Provider Internal Medicine; PCP Internal Medicine; Visit Provider Hospitalist
DX: A41.9 Sepsis, unspecified organism (principal); U07.1 COVID-19; G93.41 Metabolic encephalopathy; N13.6 Pyonephrosis; E87.2 Acidosis; N18.30 Chronic kidney disease, stage 3 unspecified; F03.90 Unspecified dementia, unspecified severity, without behavioral disturbance, psychotic disturbance, mood disturbance, and anxiety; I12.9 Hypertensive chronic kidney disease with stage 1 through stage 4 chronic kidney disease, or unspecified chronic kidney disease; K59.00 Constipation, unspecified; B96.20 Unspecified Escherichia coli [E. coli] as the cause of diseases classified elsewhere; R91.1 Solitary pulmonary nodule; N25.0 Renal osteodystrophy; N32.0 Bladder-neck obstruction; D63.1 Anemia in chronic kidney disease; R33.9 Retention of urine, unspecified; Z96.643 Presence of artificial hip joint, bilateral; Z89.512 Acquired absence of left leg below knee; Z89.511 Acquired absence of right leg below knee; Z87.891 Personal history of nicotine dependence; Z79.02 Long term (current) use of antithrombotics/antiplatelets; Z79.899 Other long term (current) drug therapy
CPT/HCPCS: 36415; 71045; 74176; 74181; 80048; 80076; 81001; 83540; 83605; 84300; 84540; 85025; 85027; 86160; 86301; 87040; 87086; 87088; 87186; 87502; 87635; 96361; 96365; 96375; 97162; 99285; 99291; C1758; J0696; J1170; J3010

== ENCOUNTER → 2021-11-22 09:01 | Outpatient (BNVA) | payer OTHER, MEDICARE, SELFPAY | PROVIDERS: PCP Family Medicine; Visit Provider Urology | DX: N32.0 Bladder-neck obstruction (principal) | CPT/HCPCS: 51798 ==

== ENCOUNTER 2023-11-25 11:37 | Emergency (ER) | payer MEDICARE, OTHER, SELFPAY ==
--- NOTE | 2023-11-25 11:47 | ECG_ITS ---
Test Reason : HYPERKALEMIA Blood Pressure : / mmHG Vent. Rate : 090 BPM Atrial Rate : 000 BPM P-R Int : 000 ms QRS Dur : 116 ms QT Int : 380 ms P-R-T Axes : 000 195 016 degrees QTc Int : 464 ms Accelerated Junctional rhythm Inferior-posterior infarct , age undetermined Anterolateral infarct , age undetermined Abnormal ECG No previous ECGs available Referred By: Ana Paula Acuna Electronically Signed By:ANNIE PIÑA MD
[2023-11-25 11:49] VITALS: BP 113/77; BP 128/90; PULSE 84; PULSE 89; RESP 16; TEMP 37; O2SAT 97; BMI 25.3
--- NOTE | 2023-11-25 11:50 | ED.RECABL ---
HPI - Recheck/Abnormal Lab/Rx General Chief Complaint: Recheck/Abnormal Lab/Rx Stated Complaint: ABN LABS PER [facility] WANTS PT TO GO TO ER PER EMS Time Seen by Provider: 11/25/23 11:47 Source: patient, EMS and old records reviewed Mode of arrival: EMS Limitations: no limitations History of Present Illness ED Provider: BELLA ODELL narrative: 88 yo male with PMH of HTN, PVD s/p BKA, CKD, polyneuropathy here with no complaints reportedly [facility] and K was elevated but level not known they could not reach him and finally he spoke to him today and told him to to go the ED. He has no complaints. complaint: abnormal lab Initial visit (ago): week(s) (1) Initial visit for: other Returns today for: called because of abnormal lab/test Description of abnormal result: he is not sure told his K was high Symptoms since prior visit: no new symptoms Context: called for abnormal lab result Associated symptoms: none Related Data Home Medications ?Medication ?Instructions ?Recorded ?Confirmed omeprazole 20 mg capsule,delayed 20 mg PO DAILY 04/18/20 11/01/21 release acetaminophen 500 mg tablet 500 mg PO BID 11/01/21 11/01/21 ascorbic acid (vitamin C) 500 mg 500 mg PO BID 11/01/21 11/01/21 tablet cyanocobalamin (vitamin B-12) 1 tab PO DAILY 11/01/21 11/01/21 1,000 mcg tablet (Vitamin B-12) ferrous sulfate 325 mg (65 mg 1 tab PO QPM 11/01/21 11/01/21 iron) tablet brimonidine 0.2 % eye drops 1 drp ophthalmic (eye) BID 11/25/23 11/25/23 carvedilol 12.5 mg tablet 12.5 mg PO BID 11/25/23 11/25/23 donepezil 5 mg tablet 5 mg PO QPM 11/25/23 11/25/23 latanoprost 0.005 % eye drops drp ophthalmic (eye) 11/25/23 omeprazole 20 mg capsule,delayed 20 mg PO DAILY 11/25/23 11/25/23 release potassium chloride 10 mEq 10 meq PO BID 11/25/23 11/25/23 tablet,extended release Previous Rx's ?Medication ?Instructions ?Recorded finasteride 5 mg tablet 5 mg PO DAILY BPH 30 days #30 tabs 11/07/21 terazosin 5 mg capsule 5 mg PO BEDTIME 30 days #30 caps 11/07/21 cefuroxime axetil 250 mg tablet 250 mg PO Q12H #4 tabs 11/08/21 Allergies Allergy/AdvReac Type Severity Reaction Status Date / Time No Known Allergies Allergy Verified 11/25/23 11:52 [No Known Allergies*] Review of Systems Review of Systems: Constitutional : No Fever, No Chills, No Fatigue ENT/Mouth : No sore throat, No Rhinorrhea Eyes: No Eye Pain, No Swelling, No Redness Cardiovascular : No Chest Pain, No SOB, No Dyspnea on Exertion Respiratory : No Cough, No Sputum Gastrointestinal : No Nausea, No Vomiting, No Diarrhea, No abdominal Pain Genitourinary : No Dysuria, No Urinary Frequency, No Hematuria, Musculoskeletal : No joint pain, No Myalgias, No Joint Swelling Skin : No Skin Lesions, No rash Neuro : No Weakness, No Numbness, No Dizziness, no Headache Psych : No Anxiety/Panic, No Depression All other systems reviewed and are negative [facility] Past Medical History Attestation statement: The following information was validated with the patient. 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 Oriented X3. No acute distress. hard of hearing Eyes: Pupils equal, round and reactive to light. ENT: Pharynx normal. Neck: Normal inspection. Neck supple. CVS: Normal heart rate and rhythm. Pulses normal. Respiratory: No respiratory distress. Breath sounds normal. Abdomen: Soft and nontender. Skin: Skin warm and dry. Normal skin color. Normal skin turgor. Extremities: No lower extremity edema. No calf ttp. R BKA Neuro: Oriented X 3. No motor deficit. No sensory deficit. Medications Administered Discontinued Medications Generic Name Dose Route Start Last Admin Trade Name Ariela PRN Reason Stop Dose Admin Albuterol Sulfate 5 mg 11/25/23 12:55 11/25/23 13:26 Albuterol Sulfate 2.5 Mg/0.5 Ml Vial.Neb INHALE 11/25/23 12:56 5 mg ONCE ONE Administration Calcium Gluconate 2 gm in 100 mls @ 50 mls/hr 11/25/23 12:04 11/25/23 14:24 Calcium Gluconate IV 11/25/23 14:03 Infused ONCE ONE Infusion Insulin Human Regular 5 unit 11/25/23 12:58 11/25/23 13:06 Insulin Regular, Human 100 Unit/Ml 10 Ml Vial IVPUSH 11/25/23 12:59 5 unit ONCE ONE Administration Sodium Bicarbonate 50 meq 11/25/23 14:03 11/25/23 14:14 Sodium Bicarbonate 8.4% 50 Meq/50 Ml Syringe IVPUSH 11/25/23 14:04 50 meq ONCE ONE Administration Sodium Zirconium Cyclosilicate 5 gm 11/25/23 12:52 11/25/23 13:06 Sodium Zirconium Cyclosilicate 5 Gm Powd.Pack PO 11/25/23 12:53 5 gm ONCE ONE Administration Medical Decision Making Medical Decision Making MDM Narrative: 88 yo male with PMH of HTN, PVD s/p BKA, CKD, polyneuropathy here with reportedly high K last week but he has no complaints and we have no labs from 2021 and no information his EKG is slightly abnormal but no CP and at this time I have repeated labs and ordered IV calcium while we wait. I have also contacted [facility] for any recent EKG or labs. Differential Diagnosis Differential Diagnoses: The differential diagnosis associated with the presentation includes lyte abnormality Admission/Observation Consideration of admission/observation: Escalation of care including admission/observation considered K down to 5.1 Cr is at his baseline can be DC Home Lab Data MDM Lab Attestation statement: I reviewed the patient's lab results. repeat K 5.1 11/25/23 12:04 11/25/23 15:02 Labs: Lab Results 11/25/23 11/25/23 Range/Units 12:04 15:02 WBC 6.8 (4.8-10.8) X10*3/uL RBC 4.12 L (4.60-5.80) X10*6/uL Hgb 12.5 L D (14.0-18.0) g/dl Hct 37.4 L (42.0-52.0) % MCV 90.8 (80.0-98.0) fL MCH 30.3 (27.0-33.0) pg MCHC 33.4 (31.0-36.0) g/dl RDW 14.7 (11.0-16.0) % Plt Count 241 D (160-400) X10*3/uL MPV 10.7 (9.4-12.4) fL Immature Gran % (Auto) 0.6 H (0.0-0.4) % Neut % (Auto) 66.7 (45-73) % Lymph % (Auto) 20.0 (20-40) % Lamar % (Auto) 9.3 (2-11) % Eos % (Auto) 2.2 (0-4) % Baso % (Auto) 1.2 (0-2) % Lymph # (Auto) 1.4 (1.2-4.9) X10*3/uL Lamar # (Auto) 0.6 (0.1-1.2) X10*3/uL Eos # (Auto) 0.2 (0.0-0.4) X10*3/uL Baso # (Auto) 0.1 (0.0-0.2) X10*3/uL Abs Immat Gran (auto) 0.04 H (0.00-0.03) X10*3/uL Absolute Neuts (auto) 4.5 (2.0-8.3) x10*3/uL Absolute Nucleated RBC 0.000 (0.0-0.012) X10*3/uL Nucleated RBC % (auto) 0.0 (0.0-0.2) /100WBC Sodium 135 139 (135-145) mmol/L Potassium 6.1 H* 5.1 (3.3-5.1) mmol/L Chloride 113 H 110 H (96-108) mmol/L Carbon Dioxide 14 L 22 (22-29) mmol/L Anion Gap 14 12 (12-20) BUN 46 H 45 H (9-16) mg/dL Creatinine 1.98 H 1.95 H (0.5-1.4) mg/dL Estim Creat Clear Calc 22.0 22.3 Estimated GFR 32 33 Random Glucose 135 H 79 (60-115) mg/dL Calcium 9.5 D 10.3 H D (8.4-10.2) mg/dL Magnesium 1.9 (1.6-2.6) mg/dL Independent Interpretation I performed an independent interpretation of an: EKG Interpretation: Rate: 90 Rhythm: NSR with 1st degree AVB [place]: left small P waves. Normal SAMMY. RBBB ST T wave : no CHERIE, inverted t waves V1, V2, V3, III qTC: 464 prior studies: changed from 2021 The study has been interpreted contemporaneously by me. . Independent Historian Clinical information obtained from an independent historian. History obtained from or confirmed by: EMS External Record Review External record reviewed: Inpatient record Critical Care Time Critical Care Time Critical Care Time: Yes Total Critical Care Time: 45 Attestation: repeat labs, potassium correction, familiy discussion, IV calcium I attest to this time spent taking care of the patient Discharge Plan Discharge Clinical Impression: Acute hyperkalemia Patient Disposition: Home, Self-Care Instructions: Hyperkalemia (ED) Additional Instructions: STOP POTASSIUM SUPPLEMENT FOLLOW UP WITH DOCTOR AND REPEAT POTASSIUM LEVEL BY FRIDAY YOU SHOULD BE FOLLOWING WITH A SOLDER DEPOSIT OPERATOR (KIDNEY DOCTOR) IF YOU DO NOT HAVE ONE PLEASE CALL OUR SOLDER DEPOSIT OPERATOR DR. VILLEGAS SEE NUMBER LISTED BELOW Prescriptions: No Action cyanocobalamin (vitamin B-12) [Vitamin B-12] 1,000 mcg tablet 1 tab PO DAILY ferrous sulfate 325 mg (65 mg iron) tablet 1 tab PO QPM acetaminophen 500 mg Tablet 500 mg PO BID ascorbic acid (vitamin C) 500 mg Tablet 500 mg PO BID terazosin 5 mg capsule 5 mg PO BEDTIME 30 Days Qty: 30 0RF finasteride 5 mg tablet 5 mg PO DAILY 30 Days Qty: 30 1RF Rx Instructions: Daily tablet cefuroxime axetil 250 mg Tablet 250 mg PO Q12H Qty: 4 0RF carvedilol 12.5 mg tablet 12.5 mg PO BID brimonidine 0.2 % drops 1 drp ophthalmic (eye) BID donepezil 5 mg tablet 5 mg PO QPM latanoprost 0.005 % drops ophthalmic (eye) omeprazole 20 mg capsule,delayed release(DR/EC) 20 mg PO DAILY potassium chloride 10 mEq tablet extended release 10 meq PO BID omeprazole 20 mg capsule,delayed release(DR/EC) 20 mg PO DAILY Referrals: Jimmy Villegas MD [Physician] - Print Language: Mongolian
--- NOTE | 2023-11-25 12:09 | PC.NURSE ---
IV established, labs drawn/sent.
[2023-11-25 12:17] LABS: MANUAL DIFF FLAG NO
[2023-11-25] MEDS: Calcium Gluconate/NaCl,Iso-Osm 2 GM/100 ML PLAST..BAG IV (12:18)
[2023-11-25 12:20] LABS: Basophils Absolute Auto 0.1 X10*3/uL (0.0-0.2); Basophils Percent Auto 1.2 % (0-2); Eosinophils Absolute Auto 0.2 X10*3/uL (0.0-0.4); Eosinophils Percent Auto 2.2 % (0-4); Hematocrit 37.4 % (42.0-52.0); Hemoglobin 12.5 g/dl (14.0-18.0); Imm Gran Abs Auto 0.04 X10*3/uL (0.00-0.03); Imm Gran Pct Auto 0.6 % (0.0-0.4); Lymphocytes Absolute Auto 1.4 X10*3/uL (1.2-4.9); Mean Corpuscular HGB Conc 33.4 g/dl (31.0-36.0); Mean Corpuscular Hemoglobin 30.3 pg (27.0-33.0); Mean Corpuscular Volume 90.8 fL (80.0-98.0); Mean Platelet Volume 10.7 fL (9.4-12.4); Monocytes Absolute Auto 0.6 X10*3/uL (0.1-1.2); Monocytes Percent Auto 9.3 % (2-11); Neutrophils Absolute Auto 4.5 x10*3/uL (2.0-8.3); Neutrophils Percent Auto 66.7 % (45-73); Platelet Count 241 X10*3/uL (160-400); Red Blood Count 4.12 X10*6/uL (4.60-5.80); Red Cell Distribution Width 14.7 % (11.0-16.0); White Blood Count 6.8 X10*3/uL (4.8-10.8)
[2023-11-25 12:45] LABS: Blood Urea Nitrogen 46 mg/dL (9-16); Calcium 9.5 mg/dL (8.4-10.2); Estimated Glomerular Filt Rate 32; Glucose Random 135 mg/dL (60-115); Magnesium 1.9 mg/dL (1.6-2.6)
[2023-11-25 12:51] LABS: Anion Gap 14 (12-20)
[2023-11-25 12:53] LABS: Carbon Dioxide 14 mmol/L (22-29); Chloride 113 mmol/L (96-108); Potassium 6.1 mmol/L (3.3-5.1); Sodium 135 mmol/L (135-145)
[2023-11-25 13:00] VITALS: BP 114/72; PULSE 92; RESP 16; TEMP 37; O2SAT 96
[2023-11-25] MEDS: Sodium Zirconium Cyclosilicate 5 GM POWD.PACK PO (13:06)
[2023-11-25] MEDS: Insulin Regular, Human 100 UNIT/ML 10 ML VIAL IVPUSH (13:06)
--- NOTE | 2023-11-25 13:10 | PC.NURSE ---
medication administered per provider order. effectiveness pending.
[2023-11-25] MEDS: Albuterol Sulfate 2.5 MG/0.5 ML VIAL.NEB 5 MG INHALE (13:26)
[2023-11-25 13:27] VITALS: PULSE 87; RESP 13; O2SAT 98
[2023-11-25] MEDS: Sodium Bicarbonate 8.4% 50 MEQ/50 ML SYRINGE IVPUSH (14:14)
--- NOTE | 2023-11-25 14:15 | PC.NURSE ---
medication administered per provider order.
[2023-11-25 15:46] LABS: Anion Gap 12 (12-20); Blood Urea Nitrogen 45 mg/dL (9-16); Calcium 10.3 mg/dL (8.4-10.2); Carbon Dioxide 22 mmol/L (22-29); Chloride 110 mmol/L (96-108); Creatinine Clr Calc Pharmacy 22.3; Estimated Glomerular Filt Rate 33; Glucose Random 79 mg/dL (60-115); Potassium 5.1 mmol/L (3.3-5.1); Sodium 139 mmol/L (135-145)
--- NOTE | 2023-11-25 16:59 | PHA.MEDREC ---
Pharmacy Consult ? Medication Reconciliation Pharmacy has completed the medication reconciliation. Confirmed medications with list provided by facility and pt was able to verify he taks the vitamin 1.25mg caps every week on Friday.
--- NOTE | 2023-11-25 17:09 | PC.NURSE ---
spoke w/ pt's daughter in regards to plan of car/pt being ready for discharge. clerical secretary notified/aware pt needs transportation back home. per pt's daughter - [facility] when he arrives home via BLS. plan of care ongoing. call lopez placed within reach.
--- NOTE | 2023-11-25 18:05 | PC.NURSE ---
pt incontinent of stool - pt changed into fresh hospital attire. linen/bedding changed. pt repositioned to comfort.
[2023-11-25 22:30] VITALS: BP 116/83; PULSE 107; RESP 19; TEMP 36.6; O2SAT 99
[2023-11-25 22:32] VITALS: BP 116/83; PULSE 107; RESP 19; TEMP 36.6; O2SAT 99
--- OUTSIDE RECORDS SUMMARY | 2023-11-28 09:54 | XMS_ITS | Continuity of Care Document ---
Author Organization [facility] Address [address] [place] [address]- Care Team Providers Care Awake Overnight Monitor Name Role Phone Abhilash Cano MD Primary Care Physician [phone] [place] [facility] [place] 12/14/[place] - 01/13/20 [facility] [address] [place] [id number]- [facility] Attending Physician: Andrew Morin Admitting Physician: AdmAndrew bourgeois Referring Physician: AdmtrAndrew Allergies, Adverse Reactions, Alerts Substance Reaction Severity Status NKA Active Medications amLODIPine 10 mg oral tablet 10 mg, 1, tablet, By Mouth, Daily, Maintenance, 12/23/19 14:12:00 EDT Start Date: 12/23/19 Status: Ordered aspirin 81 mg oral delayed release tablet 81 mg, 1, tablet, By Mouth, Daily, # 30 tablet, Refills 0, Maintenance, 12/27/19 10:59:00 EDT Start Date: 12/27/19 Status: Ordered carvedilol 12.5 mg oral tablet 12.5 mg, 1, tablet, By Mouth, Maintenance, 12/23/19 14:10:00 EDT Start Date: 12/23/19 Status: Ordered carvedilol 6.25 mg oral tablet 6.25 mg, 1, tablet, By Mouth, 2 times a day, # 180 tablet, Refills 0, Maintenance, 12/27/19 10:57:00 EDT Start Date: 12/27/19 Status: Ordered cyanocobalamin 1000 mcg oral tablet 1,000 mcg, 1, tablet, By Mouth, Daily, # 30 tablet, Refills 0, Maintenance, 12/27/19 11:00:00 EDT Start Date: 12/27/19 Status: Ordered Cyanocobalamin Inj = 100 mcg, Intramuscular, every 3 weeks, 0 Refills, Maintenance, 09/29/14 14:56:52 EDT, Injection Start Date: 09/29/14 Status: Ordered doxycycline hyclate 100 mg oral capsule 1 capsule = 100 mg, By Mouth, 2 times a day, # 20 capsule, 0 Refills, Maintenance, 12/27/19 11:02:00 EDT, Capsule Start Date: 12/27/19 Status: Ordered hydrochlorothiazide 25 mg oral tablet 12.5 mg, 0.5, tablet, By Mouth, Daily, Refills 0, Maintenance, 02/08/18 16:12:35 EDT Start Date: 02/08/18 Status: Ordered latanoprost 0.005% ophthalmic solution 1 drops, Eyes, Both, Daily at bedtime, 0 Refills, Maintenance, 02/08/18 16:13:16 EDT, Solution Start Date: 02/08/18 Status: Ordered Lisinopril Tablet 10 mg, By Mouth, Daily, Maintenance, 09/29/14 14:54:44 EDT Start Date: 09/29/14 Status: Ordered meloxicam 15 mg oral tablet 1 tablet = 15 mg, By Mouth, Daily, 0 Refills, Maintenance, 09/29/14 14:54:24 EDT, Tablet Start Date: 09/29/14 Status: Ordered Omeprazole = 20 mg, By Mouth, Daily, 0 Refills, Maintenance, 09/29/14 14:53:26 EDT Start Date: 09/29/14 Status: Ordered Plavix 75 mg oral tablet 75 mg, 1, tablet, By Mouth, Daily, # 30 tablet, Refills 0, Maintenance, 12/27/19 10:58:00 EDT Start Date: 12/27/19 Status: Ordered potassium chloride 20 mEq oral tablet, extended release 1 tablet = 20 mEq, By Mouth, Daily, # 30 tablet, 0 Refills, Maintenance, 12/27/19 11:01:00 EDT, ER Tablet Start Date: 12/27/19 Status: Ordered Tylenol 325 mg oral tablet 975 mg, 3, tablet, By Mouth, Every 8 hours, Refills 0, Maintenance, 12/29/19 11:07:00 EDT Start Date: 12/29/19 Status: Ordered Problem List Condition Effective Dates Status Health Status Inform ant HTN - Hypertension(Confirmed) Active Social History Social History Type Response Smoking Status Former smoker; Type: Cigarettes entered on: 10/10/14 Sex
--- OUTSIDE RECORDS SUMMARY | 2023-11-28 09:54 | XMS_ITS | Continuity of Care Document ---
Author Organization [facility] ter Address [address] [place] [id number]- Care Team Providers Care Podiatric Medicine Professor Name Role Phone Kevin Reed MD Primary Care Physician Encounter [facility] [place] Date(s): 06/10/19 - 06/10/[address] [address]- [facility] Attending Physician: Debo Mane DPM Allergies, Adverse Reactions, Alerts Substance Reaction Severity Status NKA Active Medications acetaminophen 325 mg oral tablet 650 mg, By Mouth, Every 4 hours, PRN, Refills 0, Maintenance, Pain , Mild, 02/10/18 15:13:20 EDT Start Date: 02/10/18 Status: Ordered Aspirin = 81 mg, By Mouth, Daily in AM, 0 Refills, Maintenance, 09/29/14 14:55:08 Start Date: 09/29/14 Status: Ordered brimonidine 0.2% ophthalmic solution 1 drops, Eyes, Both, 2 times a day, # 5 mL, 0 Refills, Maintenance, 02/08/18 16:13:01 EDT, Solution Start Date: 02/08/18 Status: Ordered cephalexin monohydrate 500 mg oral capsule = 500 mg, By Mouth, 3 times a day, 0 Refills, Maintenance, 02/10/18 15:13:13 EDT, Capsule Start Date: 02/10/18 Status: Ordered Cyanocobalamin Inj = 100 mcg, Intramuscular, every 3 weeks, 0 Refills, Maintenance, 09/29/14 14:56:52, Injection Start Date: 09/29/14 Status: Ordered hydrochlorothiazide 25 mg oral tablet 25 mg, 1, tablet, By Mouth, Daily, # 90 tablet, Refills 0, Maintenance, 02/08/18 16:12:35 EDT Start Date: 02/08/18 Status: Ordered latanoprost 0.005% ophthalmic solution 1 drops, Eyes, Both, Daily at bedtime, # 2.5 mL, 0 Refills, Maintenance, 02/08/18 16:13:16 EDT, Solution Start Date: 02/08/18 Status: Ordered Lisinopril Tablet 40 mg, By Mouth, Daily in AM, Maintenance, 09/29/14 14:54:44 Start Date: 09/29/14 Status: Ordered meloxicam 15 mg oral tablet 1 tablet = 15 mg, By Mouth, Daily in AM, # 30 tablet, 0 Refills, Maintenance, 09/29/14 14:54:24, Tablet Start Date: 09/29/14 Status: Ordered Omeprazole = 20 mg, By Mouth, Daily in AM, 0 Refills, Maintenance, 09/29/14 14:53:26 Start Date: 09/29/14 Status: Ordered Vitamin D3 1000 intl units oral tablet 1 tablet = 1,000 International_Units, By Mouth, Daily in AM, # 30 tablet, 0 Refills, Maintenance, 09/29/14 14:55:45, Tablet Start Date: 09/29/14 Status: Ordered Problem List Condition Effective Dates Status Health Status Inform ant HTN - Hypertension(Confirmed) Active Social History Social History Type Response Smoking Status Former smoker; Type: Cigarettes entered on: 10/10/14 Sex
--- OUTSIDE RECORDS SUMMARY | 2023-11-28 09:54 | XMS_ITS | Continuity of Care Document ---
Author Organization [facility] ter Address [address] [place] [id number]- Care Team Providers Care Warp Trucker Name Role Phone Shiloh Whitehead MD Primary Care Physician Encounter [facility] [place] Date(s): 06/05/20 - 06/07/[address] [address]- Discharge Disposition: A-Transfer [facility] Attending Physician: Colt Emery MD Admitting Physician: Colt Emery MD Referring Physician: Colt Emery MD Allergies, Adverse Reactions, Alerts Substance Reaction Severity Status NKA Active Medications aspirin 81 mg oral delayed release tablet 81 mg, 1, tablet, By Mouth, Daily, # 30 tablet, Refills 0, Maintenance, 12/27/19 10:59:00 EDT Start Date: 12/27/19 Status: Ordered carvedilol 6.25 mg oral tablet 6.25 mg, Tablet, By Mouth, 06/07/20 9:00:00 EST Start Date: 06/07/20 Stop Date: 06/07/20 Status: Completed carvedilol 6.25 mg oral tablet 6.25 mg, 1, tablet, By Mouth, 2 times a day, # 180 tablet, Refills 0, Maintenance, 12/27/19 10:57:00 EDT Start Date: 12/27/19 Status: Ordered Collagenase Topical 1 applicator, Topically, Every other day, to right heel during day shift, 0 Refills, Maintenance Start Date: 02/15/20 Status: Ordered cyanocobalamin 1000 mcg oral tablet 1,000 mcg, 1, tablet, By Mouth, Daily, # 30 tablet, Refills 0, Maintenance, 12/27/19 11:00:00 EDT Start Date: 12/27/19 Status: Ordered ferrous sulfate 325 mg oral tablet 1 tablet = 325 mg, By Mouth, Daily, 0 Refills, Maintenance, 02/15/20 13:00:00 EDT Start Date: 02/15/20 Status: Ordered Glucagon = 1 mg, Intramuscular, Once, 0 Refills, Maintenance, 02/15/20 13:02:00 EDT Start Date: 02/15/20 Status: Ordered glucose 40% oral gel = 15 Gm, By Mouth, Once, 0 Refills, Maintenance, 02/15/20 13:03:00 EDT Start Date: 02/15/20 Status: Ordered latanoprost 0.005% ophthalmic solution 1 drops, Eyes, Both, Daily at bedtime, 0 Refills, Maintenance, 02/08/18 16:13:16 EDT, Solution Start Date: 02/08/18 Status: Ordered Mag-Ox 400 400 mg oral tablet 1 tablet = 400 mg, By Mouth, Daily, 0 Refills, Maintenance, 02/15/20 13:03:00 EDT Start Date: 02/15/20 Status: Ordered MOM Liquid 30 mL, By Mouth, Daily at bedtime, if no bm in 3 days, 0 Refills, Maintenance, 02/15/20 13:04:00 EDT Start Date: 02/15/20 Status: Ordered Omeprazole = 20 mg, By Mouth, Daily, 0 Refills, Maintenance, 09/29/14 14:53:26 EDT Start Date: 09/29/14 Status: Ordered oxyCODONE 5 mg oral tablet 5 mg, Tablet, By Mouth, Every 4 hours, PRN for Pain , Moderate, Routine, 06/05/20 11:46:00 EST Start Date: 06/05/20 Stop Date: 06/08/20 Status: Discontinued oxyCODONE 5 mg oral tablet 5 mg, 1, tablet, By Mouth, Every 4 hours, PRN, # 30 tablet, Refills 0, Tot. Refills 0, Maintenance,for pain, 06/06/20 6:41:00 EST, Print Requisition, Partial fill upon patient request if the prescription is for a schedule II opioid drug. Start Date: 06/06/20 Status: Ordered Plavix 75 mg oral tablet 75 mg, 1, tablet, By Mouth, Daily, # 30 tablet, Refills 0, Maintenance, 12/27/19 10:58:00 EDT Start Date: 12/27/19 Status: Ordered potassium chloride 10 mEq oral tablet, extended release 1 tablet = 10 mEq, By Mouth, Daily, 0 Refills, Maintenance, 02/15/20 13:07:00 EDT Start Date: 02/15/20 Status: Ordered Tylenol 325 mg oral tablet 975 mg, 3, tablet, By Mouth, Every 8 hours, for pain, Refills 0, Maintenance, 12/29/19 11:07:00 EDT Start Date: 12/29/19 Status: Ordered Tylenol 325 mg oral tablet 975 mg, Tablet, By Mouth, 06/07/20 11:00:00 EST Start Date: 06/07/20 Stop Date: 06/07/20 Status: Completed Problem List Condition Effective Dates Status Health Status Inform ant HTN - Hypertension(Confirmed) Active Vital Signs Most recent to oldest [Reference Range]: 1 2 3 Oxygen Saturation [94-100 %] 94 % (06/07/20 7:10 AM) 97 % (06/07/20 4:07 AM) 98 % (06/06/20 7:39 PM) Pulse Rate [55-90 bpm] 63 bpm (06/07/20 7:58 AM) 63 bpm (06/07/20 7:10 AM) 61 bpm (06/07/20 4:07 AM) Blood Pressure [90-138/55-84 mm Hg] 107/54mm Hg (06/07/20 7:58 AM) 107/54mm Hg (06/07/20 7:10 AM) 114/54mm Hg (06/07/20 4:07 AM) Respiratory Rate [16-30 br/min] 18 br/min (06/07/20 1:06 PM) 18 br/min (06/07/20 1:05 PM) 18 br/min (06/07/20 12:06 PM) Temperature [96.8-100.4 DegF] 98.8 DegF (06/07/20 7:10 AM) 98.5 DegF (06/07/20 4:07 AM) 98.4 DegF (06/06/20 7:39 PM) Liters per Minute 6 L/min (06/05/20 12:45 PM) 6 L/min (06/05/20 12:30 PM) 6 L/min (06/05/20 12:15 PM) Mode of Delivery (Oxygen) Room air (06/07/20 7:10 AM) Room air (06/07/20 4:07 AM) Room air (06/06/20 7:39 PM) Blood pressure sites Arm, left (06/07/20 7:10 AM) Arm, right (06/07/20 4:07 AM) Arm, left (06/06/20 7:39 PM) Temperature Route Oral (06/07/20 7:10 AM) Oral (06/07/20 4:07 AM) Oral (06/06/20 7:39 PM) Social History Social History Type Response Smoking Status Former smoker; Type: Cigarettes entered on: 10/10/14 Sex
--- OUTSIDE RECORDS SUMMARY | 2023-11-28 09:54 | XMS_ITS | Continuity of Care Document ---
Author Organization [facility] Address [address] [place] [id number]- Care Team Providers Care Die Stamping Press Operator Name Role Phone Shiloh Whitehead MD Primary Care Physician Encounter [facility] [place] Date(s): 03/23/21 - 04/22/[address] [address]- Attending Physician: Not on Staff, Attending MD Admitting Physician: Not on Staff, Admitting MD Referring Physician: Not on Staff, Referring MD Allergies, Adverse Reactions, Alerts Substance Reaction Severity Status NKA Active Immunizations Given and Recorded Vaccine Date Status Refusal Reason SARS-CoV-2 (COVID-19) mRNA BNT-162b2 vac 08/28/20 Given SARS-CoV-2 (COVID-19) mRNA BNT-162b2 vac 08/07/20 Given Medications aspirin 81 mg oral delayed release [...]
--- OUTSIDE RECORDS SUMMARY | 2023-11-28 09:54 | XMS_ITS | Continuity of Care Document ---
Author Organization [facility] ter Address [address] [place] [id number]- Care Team Providers Care Collections Analyst Name Role Phone Abhilash Cano MD Primary Care Physician Encounter [facility] [place] Date(s): 02/14/20 - 02/18/[address] [address]- [facility] Encounter Diagnosis Nonhealing ulcer of heel(Final) - 02/14/20 Discharge Disposition: A-Transfer SNF Attending Physician: Maricruz Shepard MD Admitting Physician: Ella Renee MD Referring Physician: Not on Staff, Referring [...] Status Inform ant HTN - Hypertension(Confirmed) Active Results Orders for Microbiology Reports Name Date Blood Culture 02/14/20 Blood Culture #2 02/14/20 Microbiology Reports TEST:Blood Culture, Second Order STATUS:Unauthenticated BODY SITE: SOURCE:Blood COLLECTED DATE/TIME:02/14/20 9:41 PM Blood Culture, Second Order SPECIMEN DESCRIPTION : BLOOD R AC SPECIAL REQUESTS : NONE CULTURE : NO GROWTH 4 DAYS REPORT STATUS : PRELIMINARY REPORT TEST:Blood Culture STATUS:Unauthenticated BODY SITE: SOURCE:Blood COLLECTED DATE/TIME:02/14/20 8:40 PM Blood Culture SPECIMEN DESCRIPTION : BLOOD R AC SPECIAL REQUESTS : NONE CULTURE : NO GROWTH 4 DAYS REPORT STATUS : PRELIMINARY REPORT Radiology Reports * Exam Date Time Procedure Performing Provider Status 02/15/20 12:31 AM Foot Min 3 Views Right Fadia Miller n; Auth (Verified) Notes: (Foot Min 3 Views Right) Reason For Exam: Infection RESULT: Foot Min 3 Views Right Examination: Right foot performed on 02/15/2020. History: Reason: Infection; Clinical Question(s): Osteomyelitis Findings: Frontal, oblique, and lateral views of the right foot are compared to a prior study dated 01/17/2015. Osteopenia is noted. There are no fractures, dislocations, or erosions. A plantar calcaneal spur ispresent. Vascular calcification is noted. The soft tissues are unremarkable. IMPRESSION: There is no radiographic evidence of osteomyelitis. WSN: [id number] Ordering Physician: Karina Kearns Dictated By: Paulina Person MD Dictated Date/Time: 02/15/20 8:08 am Reviewed By: Paulina Person MD Signed By: Paulina Person MD Signed Date/Time: 02/15/20 8:08 am Transcribed By: KRISTYN Transcribed Date/Time: 02/15/20 8:07 am Vital Signs Most recent to oldest [Reference Range]: 1 2 3 Height 168 cm (02/18/20 5:00 PM) 168 cm (02/18/20 12:23 AM) 168 cm (02/17/20 8:21 PM) Weight 86 kg (02/14/20 11:56 PM) Oxygen Saturation [94-100 %] 95 % (02/18/20 5:00 PM) 96 % (02/18/20 7:51 AM) 92 % *L* (02/18/20 12:23 AM) Pulse Rate [55-90 bpm] 66 bpm (02/18/20 5:00 PM) 64 bpm (02/18/20 9:08 AM) 64 bpm (02/18/20 7:51 AM) Body Mass Index [18.5-24.99] 30.47 *>HHI* (02/14/20 11:56 PM) Blood Pressure [90-138/55-84 mm Hg] 106/62mm Hg (02/18/20 5:00 PM) 111/56mm Hg (02/18/20 9:08 AM) 111/56mm Hg (02/18/20 7:51 AM) Respiratory Rate [16-30 br/min] 20 br/min (02/18/20 5:00 PM) 18 br/min (02/18/20 7:51 AM) 20 br/min (02/18/20 12:23 AM) Temperature [96.8-100.4 DegF] 99 DegF (02/18/20 5:00 PM) 98.3 DegF (02/18/20 7:51 AM) 98.3 DegF (02/18/20 12:23 AM) Mode of Delivery (Oxygen) Room air (02/18/20 5:00 PM) Room air (02/18/20 7:51 AM) Room air (02/18/20 12:23 AM) Blood pressure sites Arm, right (02/18/20 5:00 PM) Arm, left (02/18/20 7:51 AM) Arm, right (02/17/20 5:11 PM) Temperature Route Oral (02/18/20 5:00 PM) Oral (02/18/20 7:51 AM) Oral (02/18/20 12:23 AM) Dry Weight 86 kg (02/14/20 11:56 PM) Social History Social History Type Response Smoking Status Former smoker; Type: Cigarettes entered on: 10/10/14 Sex
--- OUTSIDE RECORDS SUMMARY | 2023-11-28 09:54 | XMS_ITS | Continuity of Care Document ---
Author Organization [facility] ter Address [address] [place] [id number]- Care Team Providers Care Automotive Parts Counterperson Name Role Phone Abhilash Cano MD Primary Care Physician Encounter [facility] [place] Date(s): 12/27/19 - 12/30/[address] [address]- [facility] Discharge Disposition: A-D/C Home Attending Physician: Colt Emery MD Admitting Physician: [...] tablet, By Mouth, Every 4 hours, PRN, for 5 days, # 30 tablet, Refills 0, Tot. Refills 0, Acute 01/03/20 11:07:00 EDT, Pain , Moderate, 12/29/19 11:07:00 EDT, Print Requisition, Partial fillupon patient request Start Date: 12/29/19 Stop Date: 01/03/20 Status: Ordered Plavix 75 mg oral tablet [...] oldest [Reference Range]: 1 2 3 Height 167 cm (12/30/19 7:36 AM) 167 cm (12/30/19 5:59 AM) 167 cm (12/30/19 12:55 AM) Weight 86 kg (12/27/19 4:34 PM) 87.2 kg (12/27/19 10:24 AM) Oxygen Saturation [94-100 %] 98 % (12/30/19 7:36 AM) 94 % (12/30/19 5:59 AM) 94 % (12/30/19 12:55 AM) Pulse Rate [55-90 bpm] 65 bpm (12/30/19 8:04 AM) 65 bpm (12/30/19 7:36 AM) 66 bpm (12/30/19 5:59 AM) Body Mass Index [18.5-24.99] 30.84 *>HHI* (12/27/19 4:34 PM) 31.27 *>HHI* (12/27/19 10:24 AM) Blood Pressure [90-138/55-84 mm Hg] 116/47mm Hg (12/30/19 8:04 AM) 116/47mm Hg (12/30/19 8:04 AM) 116/47mm Hg (12/30/19 7:36 AM) Respiratory Rate [16-30 br/min] 18 br/min (12/30/19 9:04 AM) 18 br/min (12/30/19 9:04 AM) 18 br/min (12/30/19 8:04 AM) Temperature [96.8-100.4 DegF] 98.7 DegF (12/30/19 7:36 AM) 98.5 DegF (12/30/19 5:59 AM) 99.2 DegF (12/30/19 12:55 AM) Liters per Minute 6 L/min (12/27/19 3:00 PM) 6 L/min (12/27/19 2:45 PM) 6 L/min (12/27/19 2:30 PM) Mode of Delivery (Oxygen) Room air (12/30/19 7:36 AM) Room air (12/30/19 5:59 AM) Room air (12/30/19 12:55 AM) Blood pressure sites Arm, right (12/30/19 7:36 AM) Arm, right (12/30/19 5:59 AM) Arm, right (12/30/19 12:55 AM) Temperature Route Oral (12/30/19 7:36 AM) Oral (12/30/19 5:59 AM) Oral (12/30/19 12:55 AM) Dry Weight 86 kg (12/27/19 4:34 PM) 87.2 kg (12/27/19 10:24 AM) Weight Obtained Via Patient/family state d (12/27/19 10:24 AM) Dry Weight Obtained Via Patient/family s tated (12/27/19 10:24 AM) Social History Social History Type Response Smoking Status Former smoker; Type: Cigarettes entered on: 10/10/14 Sex
--- OUTSIDE RECORDS SUMMARY | 2023-11-28 09:54 | XMS_ITS | Continuity of Care Document ---
Author Organization [facility] Address [address] [place] [address]- Care Team Providers Care Utility System Repairer Name Role Phone Jerome PARDO, Abhilash Lerma Primary Care Physician Encounter [facility] [place] Date(s): 12/06/19 - 01/28/20 [facility] [address] [place] [address]- [facility] Attending Physician: Manuelito PRADO, Bessie Shipley Admitting Physician: Manuelito PRADO, Bessie Shipley Referring Physician: Debo Mane DPM Allergies, Adverse Reactions, [...]
--- OUTSIDE RECORDS SUMMARY | 2023-11-28 09:54 | XMS_ITS | Continuity of Care Document ---
Author Organization [facility] Address [address] [place] [address]- Care Team Providers Care Grain Trimmer Name Role Phone Jerome PRADO, Abhilash Lerma Primary Care Physician Encounter [facility] [place] Date(s): 12/29/19 - 01/28/20 [facility] [address] [place] [address]- [facility] Attending Physician: Andrew Morin Admitting Physician: AdmAndrew bourgeois Referring Physician: Admtr, ArKelley Allergies, Adverse Reactions, Alerts Substance Reaction Severity [...]
== END 2023-11-25 22:33 | disposition home or self-care (01) ==
PROVIDERS: Emergency Provider Emergency Medicine; PCP Internal Medicine
DX: E87.5 Hyperkalemia (principal); I12.9 Hypertensive chronic kidney disease with stage 1 through stage 4 chronic kidney disease, or unspecified chronic kidney disease; N18.9 Chronic kidney disease, unspecified
CPT/HCPCS: 36415; 80048; 83735; 85025; 93005; 94640; 96365; 96366; 96375; 99284; 99285; J0613

== ENCOUNTER → 2023-11-25 11:47 | Outpatient (BNV) | payer MEDICARE, OTHER, SELFPAY | PROVIDERS: Emergency Provider Emergency Medicine; PCP Internal Medicine; Visit Provider Internal Medicine Cardiovascular Disease | DX: I49.9 Cardiac arrhythmia, unspecified (principal) | CPT/HCPCS: 93010 ==